=== PATIENT | male | born 1950 | race African-American/Black ===

== ENCOUNTER 2016-09-05 08:28 | Inpatient (IN) | payer OTHER ==
[2016-09-05 09:49] VITALS: BMI 24.9
--- NOTE | 2016-09-05 11:43 | HP ---
CIWA Score - CIWA Score Nausea/Vomitin-No Nausea/No Vomiting Muscle Tremors: 4-Moderate,w/Arms Extend Anxiety: 4-Mod. Anxious/Guarded Agitation: 4-Moderately Restless Paroxysmal Sweats: 3 Orientation: 0-Oriented Tacttile Disturbances: 0-None Auditory Disturbances: 0-None Visual Disturbances: 0-None Headache: 1-Very Mild CIWA-Ar Total Score: 16 Admission ROS BHS - HPI Chief Complaint: I am here to detox. Allergies/Adverse Reactions: Allergies Allergy/AdvReac Type Severity Reaction Status Date / Time No Known Allergies Allergy Verified 09/05/16 09:35 History of Present Illness: pt is a 65yr old male with a history of alcohol dependence seeking detox for treatment. pt is also on a mmtp program 80mg last dose verified taken yesterday. Exam Limitations: No Limitations - Ebola screening Have you traveled outside of the country in the last 21 days: No Have you had contact with anyone from an Ebola affected area: No Have you been sick,other than usual withdrawal symptoms: No Do you have a fever: No - Review of Systems Constitutional: Chills, Diaphoresis, Loss of Appetite, Changes in sleep, Unintentional Wgt. Loss EENT: reports: Tearing Respiratory: reports: Cough Cardiac: reports: Syncope GI: reports: Constipated, Diarrhea, Poor Appetite, Poor Fluid Intake : reports: No Symptoms Reported Musculoskeletal: reports: No Symptoms Reported Integumentary: reports: Flushing, Sweating Neuro: reports: Headache, Tingling, Tremors Endocrine: reports: Excessive Sweating, Flushing, Intolerance to Cold, Intolerance to Heat Hematology: reports: No Symptoms Reported Psychiatric: reports: Judgement Intact, Mood/Affect Appropiate, Orientated x3, Agitated, Anxious, Depressed Other Systems: Reviewed and Negative Patient History - Patient Medical History Hx Anemia: No Hx Asthma: No Hx Chronic Obstructive Pulmonary Disease (COPD): No Hx Cancer: No Hx Cardiac Disorders: No Hx Congestive Heart Failure: No Hx Hypertension: Yes (pt has been non compliant with meds.) Hx Pacemaker: No HX Cerebrovascular Accident: No Hx Seizures: No Hx Dementia: No Hx Diabetes: No Hx Gastrointestinal Disorders: No Hx Liver Disease: Yes (hep c ) Hx Genitourinary Disorders: No Hx Sexually Transmitted Disorders: No Hx Renal Disease (ESRD): No Hx Thyroid Disease: No Hx Human Immunodeficiency Virus (HIV): No (NEGATIVE HX last 10/23) Hx Hepatitis C: Yes (TREATED) Hx Depression: Yes Hx Suicide Attempt: No (denies) Hx Bipolar Disorder: No Hx Schizophrenia: No Other Medical History: anxiety - Patient Surgical History Past Surgical History: No Hx Neurologic Surgery: No Hx Cataract Extraction: No Hx Cardiac Surgery: No Hx Lung Surgery: No Hx Breast Surgery: No Hx Breast Biopsy: No Hx Abdominal Surgery: No Hx Appendectomy: No Hx Cholecystectomy: No Hx Genitourinary Surgery: No Hx Section: No Hx Orthopedic Surgery: No Anesthesia Reaction: No - PPD History Previous Implant?: Yes Documented Results: Negative w/proof Implanted On Prior [facility] Admission?: Yes Date: 09/27/15 Results: 0 mm PPD to be Administered?: No - Reproductive History Patient is a Female of Child Bearing Age (11 -55 yrs old): No - Smoking Cessation Smoking history: Current every day smoker Have you smoked in the past 12 months: Yes Aproximately how many cigarettes per day: 10 Hx Chewing Tobacco Use: No Initiated information on smoking cessation: Yes 'Breaking Loose' booklet given: 09/05/16 - Substance & Tx. History Hx Alcohol Use: Yes Substance Use Type: Alcohol Hx Substance Use Treatment: Yes - Substances Abused Alcohol Route: Oral Frequency: Daily Amount used: 2 pints vodka Age of first use: 19 Date of Last Use: 09/05/16 Family Disease History - Family Disease History Family History: Denies Admission Physical Exam BHS - Vital Signs Vital Signs: Vital Signs - 24 hr 09/05/16 09:47 Temperature 96.7 F L Pulse Rate 78 Respiratory 18 Rate Blood Pressure 156/92 - Physical General Appearance: Yes: Appropriately Dressed, Moderate Distress, Tremorous, Irritable, Sweating, Anxious HEENTM: Yes: Hearing grossly Normal, Normal Voice, Nasal Congestion, Rhinorrhea Respiratory: Yes: Lungs Clear, Normal Breath Sounds Neck: Yes: No masses,lesions,Nodules Breast: Yes: Within Normal Limits Cardiology: Yes: Regular Rhythm, Regular Rate, S1, S2 Abdominal: Yes: Normal Bowel Sounds, Non Tender, Soft Genitourinary: Yes: Within Normal Limits Back: Yes: Normal Inspection Musculoskeletal: Yes: full range of Motion, Gait Steady Extremities: Yes: Normal Capillary Refill, Normal Inspection, Non-Tender, Tremors 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: Yes: Fully Oriented, Alert, Normal Response Integumentary: Yes: Normal Color, Diaphoresis Lymphatic: Yes: Within Normal Limits - Diagnostic (1) Alcohol dependence with uncomplicated withdrawal Current Visit: Yes Status: Chronic (2) Hepatitis C Current Visit: Yes Status: Chronic Qualifiers: Viral hepatitis chronicity: chronic Hepatic coma status: without hepatic coma Qualified Code(s): B18.2 - Chronic viral hepatitis C (3) Methadone maintenance therapy patient Current Visit: Yes Status: Chronic Comment: dose verified with [facility] with 80mg last dose yesterday. (4) Nicotine dependence Current Visit: Yes Status: Chronic Qualifiers: Nicotine product type: cigarettes Substance use status: uncomplicated Qualified Code(s): F17.210 - Nicotine dependence, cigarettes, uncomplicated Cleared for Admission BHS - Detox or Rehab [facility] Level of Care: Medically Managed Detox Regimen/Protocol: Librium [facility] Breath Alcohol Content Breath Alcohol Content: 0.016 Urine Drug Screen - Results Drug Screen Negative: No Urine Drug Screen Results: OPI-Opiates, BZO-Benzodiazepines, MTD-Methadone
[2016-09-05] MEDS ORDERED: IBUPROFEN 400 MG TABLET (FP) PO PRN (11:48)
[2016-09-05] MEDS ORDERED: NICOTINE POLACRILEX 4 MG GUM BUC PRN (11:48)
[2016-09-05] MEDS ORDERED: MAGNESIUM HYDROX 2400MG/30ML ORAL SUSPENSION 30 ML CUP PO PRN (11:48)
[2016-09-05] MEDS ORDERED: chlordiazePOXIDE HCL 25 MG CAPSULE PO PRN (11:48)
[2016-09-05] MEDS ORDERED: MAGNESIUM CITRATE 300 ML BOTTLE PO PRN (11:48)
[2016-09-05] MEDS ORDERED: hydrOXYzine PAMOATE 50 MG CAPSULE (FP) PO PRN (11:48)
[2016-09-05] MEDS ORDERED: ACETAMINOPHEN 325 MG TABLET (FP) PO PRN (11:48)
[2016-09-05] MEDS ORDERED: chlordiazePOXIDE HCL 25 MG CAPSULE PO ONE (11:48)
[2016-09-05] MEDS ORDERED: guaiFENesin/D-METHORPHAN HB 10 ML UNIT-DOSE CUPS PO PRN (11:48)
[2016-09-05] MEDS ORDERED: MENTHOL/PHENOL 1 EACH UD MM PRN (11:48)
[2016-09-05] MEDS ORDERED: LOPERAMIDE HCL 2 MG CAPSULE PO PRN (11:48)
[2016-09-05] MEDS ORDERED: P-EPHED 60MG/TRIPROLIDI 2.5MG TABLET PO PRN (11:48)
[2016-09-05] MEDS ORDERED: MAG HYDROX/AL HYDROX/SIMETH 30 ML UNIT-DOSE CUP PO PRN (11:48)
[2016-09-05] MEDS ORDERED: METHADONE HCL 40 MG DISPERSABLE TABLET PO ONE (12:30)
[2016-09-05] MEDS: chlordiazePOXIDE HCL 25 MG CAPSULE PO SCH ×3 (13:34→22:29)
[2016-09-05] MEDS: HYDROCHLOROTHIAZIDE 25 MG TABLET (FP) PO SCH (13:34)
[2016-09-05] MEDS: ENALAPRIL MALEATE 10 MG TABLET (FP) PO SCH (13:34)
[2016-09-05 15:27] LABS: HIV 1 & 2 AB NEGATIVE; HIV 1 AGp24 NEGATIVE
--- NOTE | 2016-09-05 16:11 | EKG ---
Test Reason : Blood Pressure : / mmHG Vent. Rate : 069 BPM Atrial Rate : 069 BPM P-R Int : 174 ms QRS Dur : 080 ms QT Int : 356 ms P-R-T Axes : 074 064 007 degrees QTc Int : 381 ms NORMAL SINUS RHYTHM POSSIBLE LEFT ATRIAL ENLARGEMENT NONSPECIFIC T WAVE ABNORMALITY ABNORMAL ECG NO PREVIOUS ECGS AVAILABLE Confirmed by RAO ACKERMAN MD ([id number]) on 09/05/2016 4:10:45 PM Referred By: Guy Tarango Confirmed By:RAO ACKERMAN MD
[2016-09-05 21:01] LABS: URINE APPEARANCE CLEAR; URINE BILIRUBIN NEGATIVE (NEGATIVE); URINE BLOOD NEGATIVE (NEGATIVE); URINE COLOR DKYELLOW; URINE GLUCOSE (UA) NEGATIVE (NEGATIVE); URINE KETONE NEGATIVE (NEGATIVE); URINE LEUK ESTERASE NEGATIVE (NEGATIVE); URINE NITRITE NEGATIVE (NEGATIVE); URINE PROTEIN NEGATIVE (NEGATIVE); URINE UROBILINOGEN 4.0 E.U/dl E.U./dl (0.2-1.0)
[2016-09-05] MEDS: THIAMINE HCL 100 MG TABLET (FP) PO SCH (22:29)
[2016-09-05] MEDS: diphenhydrAMINE HCL 50 MG CAPSULE PO PRN (22:30)
[2016-09-06] MEDS: METHADONE HCL 40 MG DISPERSABLE TABLET PO SCH (05:58)
[2016-09-06] MEDS: chlordiazePOXIDE HCL 25 MG CAPSULE PO SCH ×4 (05:58→22:05)
[2016-09-06 10:26] LABS: MCHC 32.9 g/dl (32.0-35.9); MEAN CELL VOLUME 100.3 fl (80-96); MEAN PLT VOLUME 11.2 fl (7.5-11.1); PLATELET COUNT 66 K/MM3 (134-434); RDW 17.9 % (11.9-15.9); WHITE BLOOD COUNT 3.2 K/mm3 (4.0-10.0)
[2016-09-06] MEDS: HYDROCHLOROTHIAZIDE 25 MG TABLET (FP) PO SCH (10:29)
[2016-09-06] MEDS: ENALAPRIL MALEATE 10 MG TABLET (FP) PO SCH (10:29)
[2016-09-06] MEDS: ASPIRIN 81 MG CHEWABLE TABLETS PO SCH (10:29)
[2016-09-06] MEDS: NICOTINE 21 MG/24 HOURS TOPICAL PATCH TD SCH (10:30)
[2016-09-06] MEDS: PRENATAL VITAMINS W/ FOLIC ACID TABLET (FP) PO SCH (10:30)
--- NOTE | 2016-09-06 11:19 | CONSULT ---
[facility] Psychiatric Consult - Data Date of interview: 09/06/16 Admission source: [facility] Identifying data: New admission to [facility] for this 65 y/o AA male seeking detox treatment on for alcohol dependence.Patient is ,a father of three,domiciled,unemployed and supported on Public Assistance. Substance Abuse History: - Smoking Cessation. Smoking history: Current every day smoker. Have you smoked in the past 12 months: Yes. Aproximately how many cigarettes per day: 10. Hx Chewing Tobacco Use: No. Initiated information on smoking cessation: Yes. 'Breaking Loose' booklet given: 09/05/16. - Substance & Tx. History. Hx Alcohol Use: Yes. Substance Use Type: Alcohol. Hx Substance Use Treatment: Yes. - Substances Abused. Alcohol. Route: Oral. Frequency: Daily. Amount used: 2 pints vodka. Age of first use: 19. Date of Last Use: 09/05/16. Discussed with the patient in my interview.He confirmed this pattern of substance abuse. Medical History: HRemarkable for hypertension,hepatitis C and obesity. Psychiatric History: No reported history of psychiatric hospitalizations.Patient is on methadone maintenance (80 mg/day) at the [facility] MMTP program.Diagnosed with Anxiety Disorder.Mr Del reports that he is prescribed clonazepam in the community.No history of suicide attempts. Physical/Sexual Abuse/Trauma History: Patient denies. Additional Comment: Urine Drug Screen Results: OPI-Opiates, BZO-Benzodiazepines , MTD-Methadone.Noted. Mental Status Exam - Mental Status Exam Alert and Oriented to: Time, Place, Person Cognitive Function: Grossly Intact Patient Appearance: Unkempt, Disheveled Mood: Withdrawn, Anxious Affect: Mood Congruent Patient Behavior: Sedated (mildly), Fatigued, Cooperative Speech Pattern: Clear Voice Loudness: Normal Thought Process: Goal Oriented Thought Disorder: Not Present Hallucinations: Denies Suicidal Ideation: Denies Homicidal Ideation: Denies Insight/Judgement: Poor Sleep: Fair Appetite: Good Muscle strength/Tone: Normal Gait/Station: Normal Psychiatric Findings - Problem List ([place] 1, 2,3) (1) Alcohol dependence with uncomplicated withdrawal Current Visit: Yes Status: Acute (2) Opioid dependence on agonist therapy Current Visit: Yes Status: Acute (3) Nicotine dependence Current Visit: Yes Status: Acute Qualifiers: Nicotine product type: cigarettes Substance use status: uncomplicated Qualified Code(s): F17.210 - Nicotine dependence, cigarettes, uncomplicated (4) Hepatitis C Current Visit: Yes Status: Chronic Qualifiers: Viral hepatitis chronicity: chronic Hepatic coma status: without hepatic coma Qualified Code(s): B18.2 - Chronic viral hepatitis C - Initial Treatment Plan Initial Treatment Plan: Psychoeducation.Detoxification.Observation.
[2016-09-06 11:44] LABS: ALBUMIN 3.6 g/dl (3.4-5.0); ALK PHOS 36 U/L (45-117); ANION GAP 14 (8-16); BILIRUBIN,TOTAL 1.6 mg/dL (0.2-1.0); CALCIUM 9.1 mg/dL (8.5-10.1); CO2 30 mmol/L (21-32); CREATININE 0.7 mg/dL (0.7-1.3); GLUCOSE,RANDOM 129 mg/dL (74-106); SGOT/AST 66 U/L (15-37); SGPT/ALT 41 U/L (12-78); TOT PROT 6.8 g/dl (6.4-8.2)
--- NOTE | 2016-09-06 12:02 | PN ---
S CIWA - CIWA Score Nausea/Vomitin Muscle Tremors: 4-Moderate,w/Arms Extend Anxiety: 4-Mod. Anxious/Guarded Agitation: 4-Moderately Restless Paroxysmal Sweats: 3 Orientation: 0-Oriented Tacttile Disturbances: 1-Very Mild Itch/Numbness Auditory Disturbances: 0-None Visual Disturbances: 0-None Headache: 1-Very Mild CIWA-Ar Total Score: 20 BHS Progress Note (SOAP) Subjective: nausea, sweats, interrupted sleep, anxiety, tremors Objective: 09/06/16 12:00 Vital Signs - 8 hr 09/06/16 09/06/16 06:00 10:29 Temperature 98.6 F 97.8 F Pulse Rate 78 83 Respiratory 18 18 Rate Blood Pressure 154/94 141/91 Laboratory Tests 09/05/16 09/05/16 09/06/16 11:50 19:00 06:10 WBC 3.2 L RBC 4.15 Hgb 13.7 D Hct 41.6 MCV 100.3 H MCHC 32.9 RDW 17.9 H D Plt Count 66 L D MPV 11.2 H D Sodium Potassium Chloride Carbon Dioxide Anion Gap BUN Creatinine Creat Clearance w eGFR Random Glucose Calcium Total Bilirubin AST ALT Alkaline Phosphatase Total Protein Albumin Urine Color Dkyellow Urine Appearance Clear Urine pH 7.0 D Ur Specific [place] 1.014 Urine Protein Negative Urine Glucose (UA) Negative Urine Ketones Negative Urine Blood Negative Urine Nitrite Negative Urine Bilirubin Negative Urine Urobilinogen 4.0 e.u/dl Ur Leukocyte Esterase Negative HIV 1&2 Antibody Screen Negative HIV P24 Antigen Negative 09/06/16 06:10 WBC RBC Hgb Hct MCV MCHC RDW Plt Count MPV Sodium 138 Potassium 2.8 L* Chloride 94 L Carbon Dioxide 30 Anion Gap 14 BUN 8 D Creatinine 0.7 D Creat Clearance w eGFR > 60 Random Glucose 129 H D Calcium 9.1 Total Bilirubin 1.6 H D AST 66 H D ALT 41 Alkaline Phosphatase 36 L Total Protein 6.8 Albumin 3.6 Urine Color Urine Appearance Urine pH Ur Specific [place] Urine Protein Urine Glucose (UA) Urine Ketones Urine Blood Urine Nitrite Urine Bilirubin Urine Urobilinogen Ur Leukocyte Esterase HIV 1&2 Antibody Screen HIV P24 Antigen hypokalemiam elevated lfts , low paltelets Assessment: 09/06/16 12:01 withdrawal sx, hypokalemia and elevated lfts , low plts 2/2 alcohol use Plan: cont detox, fluids, supplement k, repeat labs
[2016-09-06] MEDS ORDERED: POTASSIUM CHLORIDE TABS 20 MEQ TABLET.ER (FP) PO ONE (12:15)
[2016-09-06] MEDS: POTASSIUM CHLORIDE TABS 20 MEQ TABLET.ER (FP) PO SCH (22:05)
[2016-09-06] MEDS: THIAMINE HCL 100 MG TABLET (FP) PO SCH (22:05)
[2016-09-06] MEDS: diphenhydrAMINE HCL 50 MG CAPSULE PO PRN (22:06)
[2016-09-07] MEDS: METHADONE HCL 40 MG DISPERSABLE TABLET PO SCH (05:59)
[2016-09-07] MEDS: chlordiazePOXIDE HCL 25 MG CAPSULE PO SCH (05:59)
[2016-09-07] MEDS: HYDROCHLOROTHIAZIDE 25 MG TABLET (FP) PO SCH (10:18)
[2016-09-07] MEDS: ASPIRIN 81 MG CHEWABLE TABLETS PO SCH (10:18)
[2016-09-07] MEDS: POTASSIUM CHLORIDE TABS 20 MEQ TABLET.ER (FP) PO SCH ×2 (10:19→22:10)
[2016-09-07] MEDS: ENALAPRIL MALEATE 10 MG TABLET (FP) PO SCH (10:19)
[2016-09-07] MEDS: PRENATAL VITAMINS W/ FOLIC ACID TABLET (FP) PO SCH (10:19)
[2016-09-07] MEDS: chlordiazePOXIDE 5 MG CAPSULE PO SCH ×3 (10:19→22:10)
[2016-09-07] MEDS: NICOTINE 21 MG/24 HOURS TOPICAL PATCH TD SCH (10:19)
--- NOTE | 2016-09-07 14:48 | PN ---
[facility] CIWA - CIWA Score Nausea/Vomitin-No Nausea/No Vomiting Muscle Tremors: 4-Moderate,w/Arms Extend Anxiety: 3 Agitation: 3 Paroxysmal Sweats: 3 Orientation: 0-Oriented Tacttile Disturbances: 1-Very Mild Itch/Numbness Auditory Disturbances: 0-None Visual Disturbances: 0-None Headache: 0-None Present CIWA-Ar Total Score: 14 BHS Progress Note (SOAP) Subjective: SWEATING,ANXIETY,TREMORS,RESTLESS,INTERRUPTED SLEEP Objective: 09/07/16 14:47 Vital Signs - 8 hr 09/07/16 09/07/16 10:00 14:00 Temperature 98.2 F 97.7 F Pulse Rate 86 95 H Respiratory 18 18 Rate Blood Pressure 149/90 116/73 Laboratory Last Values WBC 3.2 K/mm3 (4.0-10.0) L 09/06/16 06:10 RBC 4.15 M/mm3 (4.00-5.60) 09/06/16 06:10 Hgb 13.7 GM/dL (11.7-16.9) D 09/06/16 06:10 Hct 41.6 % (35.4-49) 09/06/16 06:10 MCV 100.3 fl (80-96) H 09/06/16 06:10 MCHC 32.9 g/dl (32.0-35.9) 09/06/16 06:10 RDW 17.9 % (11.9-15.9) H D 09/06/16 06:10 Plt Count 66 K/MM3 (134-434) L D 09/06/16 06:10 MPV 11.2 fl (7.5-11.1) H D 09/06/16 06:10 Sodium 138 mmol/L (136-145) 09/06/16 06:10 Potassium 2.8 mmol/L (3.5-5.1) L* 09/06/16 06:10 Chloride 94 mmol/L (98-107) L 09/06/16 06:10 Carbon Dioxide 30 mmol/L (21-32) 09/06/16 06:10 Anion Gap 14 (8-16) 09/06/16 06:10 BUN 8 mg/dL (7-18) D 09/06/16 06:10 Creatinine 0.7 mg/dL (0.7-1.3) D 09/06/16 06:10 Creat Clearance w eGFR > 60 (>60) 09/06/16 06:10 Random Glucose 129 mg/dL (74-106) H D 09/06/16 06:10 Calcium 9.1 mg/dL (8.5-10.1) 09/06/16 06:10 Total Bilirubin 1.6 mg/dL (0.2-1.0) H D 09/06/16 06:10 AST 66 U/L (15-37) H D 09/06/16 06:10 ALT 41 U/L (12-78) 09/06/16 06:10 Alkaline Phosphatase 36 U/L (45-117) L 09/06/16 06:10 Total Protein 6.8 g/dl (6.4-8.2) 09/06/16 06:10 Albumin 3.6 g/dl (3.4-5.0) 09/06/16 06:10 Urine Color Dkyellow 09/05/16 19:00 Urine Appearance Clear 09/05/16 19:00 Urine pH 7.0 (5.0-8.0) D 09/05/16 19:00 Ur Specific [place] 1.014 (1.001-1.035) 09/05/16 19:00 Urine Protein Negative (NEGATIVE) 09/05/16 19:00 Urine Glucose (UA) Negative (NEGATIVE) 09/05/16 19:00 Urine Ketones Negative (NEGATIVE) 09/05/16 19:00 Urine Blood Negative (NEGATIVE) 09/05/16 19:00 Urine Nitrite Negative (NEGATIVE) 09/05/16 19:00 Urine Bilirubin Negative (NEGATIVE) 09/05/16 19:00 Urine Urobilinogen 4.0 e.u/dl E.U./dl (0.2-1.0) 09/05/16 19:00 Ur Leukocyte Esterase Negative (NEGATIVE) 09/05/16 19:00 RPR Titer Nonreactive (NONREACTIVE) 09/06/16 06:10 HIV 1&2 Antibody Screen Negative 09/05/16 11:50 HIV P24 Antigen Negative 09/05/16 11:50 LABS NOTED Assessment: 09/07/16 14:48 WITHDRAWAL SX. Plan: CONTINUE DETOX
[2016-09-07] MEDS: THIAMINE HCL 100 MG TABLET (FP) PO SCH (22:09)
[2016-09-07] MEDS: diphenhydrAMINE HCL 50 MG CAPSULE PO PRN (22:11)
[2016-09-08] MEDS: chlordiazePOXIDE 5 MG CAPSULE PO SCH (04:49)
[2016-09-08] MEDS: METHADONE HCL 40 MG DISPERSABLE TABLET PO SCH (05:57)
[2016-09-08] MEDS: NICOTINE 21 MG/24 HOURS TOPICAL PATCH TD SCH (10:03)
[2016-09-08 10:04] LABS: CALCIUM 9.6 mg/dL (8.5-10.1); CREATININE 0.9 mg/dL (0.7-1.3)
[2016-09-08] MEDS: PRENATAL VITAMINS W/ FOLIC ACID TABLET (FP) PO SCH (10:04)
[2016-09-08] MEDS: POTASSIUM CHLORIDE TABS 20 MEQ TABLET.ER (FP) PO SCH (10:04)
[2016-09-08] MEDS: chlordiazePOXIDE HCL 10 MG CAPSULE PO SCH ×3 (10:04→22:32)
[2016-09-08] MEDS: HYDROCHLOROTHIAZIDE 25 MG TABLET (FP) PO SCH (10:04)
[2016-09-08] MEDS: ENALAPRIL MALEATE 10 MG TABLET (FP) PO SCH (10:04)
[2016-09-08] MEDS: ASPIRIN 81 MG CHEWABLE TABLETS PO SCH (10:04)
--- NOTE | 2016-09-08 11:05 | PN ---
BHS Progress Note (SOAP) Subjective: nausea, sweats, interrupted sleep, anxeity, tremors Objective: 09/08/16 11:04 Vital Signs - 8 hr 09/08/16 09/08/16 09/08/16 03:30 05:03 10:22 Temperature 98.1 F 98.1 F Pulse Rate 76 84 Respiratory 18 18 18 Rate Blood Pressure 132/88 151/98 Laboratory Tests 09/05/16 09/05/16 09/06/16 11:50 19:00 06:10 WBC 3.2 L RBC 4.15 Hgb 13.7 D Hct 41.6 MCV 100.3 H MCHC 32.9 RDW 17.9 H D Plt Count 66 L D MPV 11.2 H D Sodium Potassium Chloride Carbon Dioxide Anion Gap BUN Creatinine Creat Clearance w eGFR Random Glucose Calcium Total Bilirubin AST ALT Alkaline Phosphatase Total Protein Albumin Urine Color Dkyellow Urine Appearance Clear Urine pH 7.0 D Ur Specific [place] 1.014 Urine Protein Negative Urine Glucose (UA) Negative Urine Ketones Negative Urine Blood Negative Urine Nitrite Negative Urine Bilirubin Negative Urine Urobilinogen 4.0 e.u/dl Ur Leukocyte Esterase Negative RPR Titer HIV 1&2 Antibody Screen Negative HIV P24 Antigen Negative 09/06/16 09/06/16 09/08/16 06:10 06:10 06:30 WBC RBC Hgb Hct MCV MCHC RDW Plt Count MPV Sodium 138 141 Potassium 2.8 L* 4.5 D Chloride 94 L 97 L Carbon Dioxide 30 37 H D Anion Gap 14 7 L BUN 8 D 16 D Creatinine 0.7 D 0.9 D Creat Clearance w eGFR > 60 Random Glucose 129 H D 103 D Calcium 9.1 9.6 Total Bilirubin 1.6 H D AST 66 H D ALT 41 Alkaline Phosphatase 36 L Total Protein 6.8 Albumin 3.6 Urine Color Urine Appearance Urine pH Ur Specific [place] Urine Protein Urine Glucose (UA) Urine Ketones Urine Blood Urine Nitrite Urine Bilirubin Urine Urobilinogen Ur Leukocyte Esterase RPR Titer Nonreactive HIV 1&2 Antibody Screen HIV P24 Antigen Assessment: 09/08/16 11:04 withdrawal sx, k wnl after supplementation Plan: cont detox, d/c K supplements
[2016-09-08] MEDS: THIAMINE HCL 100 MG TABLET (FP) PO SCH (22:32)
[2016-09-08] MEDS: diphenhydrAMINE HCL 50 MG CAPSULE PO PRN (22:32)
[2016-09-09] MEDS: METHADONE HCL 40 MG DISPERSABLE TABLET PO SCH (05:48)
[2016-09-09] MEDS: chlordiazePOXIDE HCL 10 MG CAPSULE PO SCH (05:48)
[2016-09-09 06:25] VITALS: BP 145/94; PULSE 78; TEMP 96.1
--- NOTE | 2016-09-09 09:10 | DS ---
[facility] Detox Discharge Summary Admission Date: 09/05/16 Discharge Date: 09/09/16 - History Present History: Alcohol Dependence, Opioid Dependence, MMTP - Physical Exam Results Vital Signs: Vital Signs Temperature 96.1 F L 09/09/16 06:24 Pulse Rate 78 09/09/16 06:24 Respiratory Rate 18 09/09/16 06:24 Blood Pressure 145/94 09/09/16 06:24 O2 Sat by Pulse Oximetry (%) - Treatment Hospital Course: Detox Protocol Followed, Detoxed Safely, Responded well, Discharged Condition Good, Rehab Referral Accepted - Medication Discharge Medications: Ambulatory Orders Aspirin [ASA -] 81 mg PO DAILY 02/04/16 Enalapril Maleate [Vasotec -] 10 mg PO DAILY 09/05/16 Hydrochlorothiazide [Hctz -] 25 mg PO DAILY 09/05/16 - Diagnosis (1) Alcohol dependence with uncomplicated withdrawal Current Visit: Yes Status: Chronic (2) Hepatitis C Current Visit: Yes Status: Chronic Qualifiers: Viral hepatitis chronicity: chronic Hepatic coma status: without hepatic coma Qualified Code(s): B18.2 - Chronic viral hepatitis C (3) Methadone maintenance therapy patient Current Visit: Yes Status: Chronic (4) Nicotine dependence Current Visit: Yes Status: Chronic Qualifiers: Nicotine product type: cigarettes Substance use status: uncomplicated Qualified Code(s): F17.210 - Nicotine dependence, cigarettes, uncomplicated - AMA Did Patient Leave Against Medical Advice: No
[2016-09-09] MEDS: ENALAPRIL MALEATE 10 MG TABLET (FP) PO SCH (10:04)
[2016-09-09] MEDS: NICOTINE 21 MG/24 HOURS TOPICAL PATCH TD SCH (10:04)
[2016-09-09] MEDS: HYDROCHLOROTHIAZIDE 25 MG TABLET (FP) PO SCH (10:04)
[2016-09-09] MEDS: PRENATAL VITAMINS W/ FOLIC ACID TABLET (FP) PO SCH (10:04)
[2016-09-09] MEDS: ASPIRIN 81 MG CHEWABLE TABLETS PO SCH (10:04)
== END 2016-09-09 11:08 | disposition home or self-care (01) | DRG 773 ==
LOC: YASAS 08:28 → Y6N 10:45
PROVIDERS: ADMIT Internal Medicine; ATTEND Internal Medicine
PROC: HZ2ZZZZ Detoxification Services for Substance Abuse Treatment (ICD-10-PCS; principal; 2016-09-09)
DX: F11.20 Opioid dependence, uncomplicated (principal); F10.230 Alcohol dependence with withdrawal, uncomplicated; F17.210 Nicotine dependence, cigarettes, uncomplicated; B18.2 Chronic viral hepatitis C; I10 Essential (primary) hypertension; Z91.14 Patient's other noncompliance with medication regimen
CPT/HCPCS: 36415; 80048; 80053; 81003; 85027; 86593; 87389; 93005; 93010

== ENCOUNTER 2016-11-05 10:01 | Inpatient (IN) | payer OTHER ==
[2016-11-05 10:34] VITALS: BMI 24.9
--- NOTE | 2016-11-05 11:42 | HP ---
CIWA Score - CIWA Score Nausea/Vomitin Muscle Tremors: 3 Agitation: 2 Paroxysmal Sweats: 3 Orientation: 0-Oriented Tacttile Disturbances: 1-Very Mild Itch/Numbness Auditory Disturbances: 0-None Visual Disturbances: 0-None Headache: 0-None Present Admission ROS BHS - HPI Chief Complaint: 66 y/o m pt need help to stop using alcohol. Allergies/Adverse Reactions: Allergies Allergy/AdvReac Type Severity Reaction Status Date / Time No Known Allergies Allergy Verified 11/05/16 11:06 History of Present Illness: 66 y/o m pt with a h/o chronic alcohollism seeking detox. Exam Limitations: No Limitations - Ebola screening Have you traveled outside of the country in the last 21 days: No Have you had contact with anyone from an Ebola affected area: No Have you been sick,other than usual withdrawal symptoms: No Do you have a fever: No - Review of Systems Constitutional: Loss of Appetite, Malaise, Changes in sleep EENT: reports: Dental Problems Respiratory: reports: No Symptoms reported Cardiac: reports: No Symptoms Reported GI: reports: Nausea, Poor Appetite : reports: Frequency Musculoskeletal: reports: No Symptoms Reported Integumentary: reports: Dryness Neuro: reports: Tremors Endocrine: reports: No Symptoms Reported Hematology: reports: No Symptoms Reported Other Systems: Reviewed and Negative Patient History - Patient Medical History Hx Anemia: No Hx Asthma: No Hx Chronic Obstructive Pulmonary Disease (COPD): No Hx Cancer: No Hx Cardiac Disorders: No Hx Congestive Heart Failure: No Hx Hypertension: Yes Hx Pacemaker: No HX Cerebrovascular Accident: No Hx Seizures: No Hx Dementia: No Hx Diabetes: No Hx Gastrointestinal Disorders: No Hx Liver Disease: Yes (hep c ) Hx Genitourinary Disorders: No Hx Sexually Transmitted Disorders: No Hx Renal Disease (ESRD): No Hx Thyroid Disease: No Hx Human Immunodeficiency Virus (HIV): No (NEGATIVE HX last 10/23) Hx Hepatitis C: Yes (TREATED) Hx Depression: No Hx Suicide Attempt: No Hx Bipolar Disorder: No Hx Schizophrenia: No - Patient Surgical History Past Surgical History: No Hx Neurologic Surgery: No Hx Cataract Extraction: No Hx Cardiac Surgery: No Hx Lung Surgery: No Hx Breast Surgery: No Hx Breast Biopsy: No Hx Abdominal Surgery: No Hx Appendectomy: No Hx Cholecystectomy: No Hx Genitourinary Surgery: No Hx Section: No Hx Orthopedic Surgery: No Anesthesia Reaction: No - PPD History Previous Implant?: Yes Documented Results: Negative w/proof Implanted On Prior R Admission?: Yes Date: 09/27/15 Results: 0 mm PPD to be Administered?: Yes - Reproductive History Patient is a Female of Child Bearing Age (11 -55 yrs old): No - Smoking Cessation Smoking history: Current every day smoker Have you smoked in the past 12 months: Yes Aproximately how many cigarettes per day: 20 Cigars Per Day: 0 Hx Chewing Tobacco Use: No Initiated information on smoking cessation: Yes 'Breaking Loose' booklet given: 11/05/16 - Substance & Tx. History Hx Alcohol Use: Yes Hx Substance Use: Yes Substance Use Type: Alcohol Hx Substance Use Treatment: Yes ([facility] ) - Substances Abused Heroin Route: Inhalation Frequency: 1-3 times last 30 days Amount used: 2 bags Age of first use: 19 Date of Last Use: 11/04/16 Alcohol-vodka Route: Oral Frequency: Daily Amount used: fifth Age of first use: 65 Date of Last Use: 11/04/16 Family Disease History - Family Disease History Family Disease History: Other: Mother (htn ) Admission Physical Exam BHS - Vital Signs Vital Signs: Vital Signs - 24 hr 11/05/16 10:29 Temperature 97.4 F L Pulse Rate 105 H Respiratory 18 Rate Blood Pressure 144/90 66 y/o m pt aox3 in nad , mild tremor , ambulating and cooperative with exam . - Physical General Appearance: Yes: Disheveled, Thin, Tremorous, Sweating, Anxious HEENTM: Yes: EOMI, Normocephalic, Normal Voice, JACQUIE Respiratory: Yes: Chest Non-Tender, Lungs Clear, Normal Breath Sounds, No Respiratory Distress Neck: Yes: Supple, Trachea in good position Breast: Yes: Within Normal Limits Cardiology: Yes: Regular Rhythm, Regular Rate, S1, S2 Abdominal: Yes: Non Tender, Flat, Soft, Increased Bowel Sounds Genitourinary: Yes: Frequency Back: Yes: Within Normal Limits Musculoskeletal: Yes: Muscle Pain Extremities: Yes: Tremors 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: Yes: recording engineer II-XII NML intact, Fully Oriented, Alert, Motor Strength 5/5, Normal Response Integumentary: Yes: Moist Lymphatic: Yes: Within Normal Limits - Diagnostic (1) Opioid dependence on agonist therapy Current Visit: Yes Status: Chronic (2) Alcohol dependence with uncomplicated withdrawal Current Visit: Yes Status: Chronic (3) Hepatitis C Current Visit: Yes Status: Chronic Qualifiers: Viral hepatitis chronicity: chronic Hepatic coma status: without hepatic coma Qualified Code(s): B18.2 - Chronic viral hepatitis C (4) Nicotine dependence Current Visit: Yes Status: Chronic Qualifiers: Nicotine product type: cigarettes Substance use status: uncomplicated Qualified Code(s): F17.210 - Nicotine dependence, cigarettes, uncomplicated Cleared for Admission BHS - Detox or Rehab [facility] Level of Care: Medically Managed Detox Regimen/Protocol: Librium [facility] Breath Alcohol Content Breath Alcohol Content: 0 Urine Drug Screen - Results Drug Screen Negative: No Urine Drug Screen Results: OPI-Opiates, BZO-Benzodiazepines, MTD-Methadone
[2016-11-05] MEDS ORDERED: guaiFENesin/D-METHORPHAN HB 10 ML UNIT-DOSE CUPS PO PRN (11:52)
[2016-11-05] MEDS ORDERED: P-EPHED 60MG/TRIPROLIDI 2.5MG TABLET PO PRN (11:52)
[2016-11-05] MEDS ORDERED: ACETAMINOPHEN 325 MG TABLET (FP) PO PRN (11:52)
[2016-11-05] MEDS ORDERED: MENTHOL/PHENOL 1 EACH UD MM PRN (11:52)
[2016-11-05] MEDS ORDERED: MAGNESIUM HYDROX 2400MG/30ML ORAL SUSPENSION 30 ML CUP PO PRN (11:52)
[2016-11-05] MEDS ORDERED: MAGNESIUM CITRATE 300 ML BOTTLE PO PRN (11:52)
[2016-11-05] MEDS ORDERED: hydrOXYzine PAMOATE 25 MG CAPSULE (FP) PO PRN (11:52)
[2016-11-05] MEDS ORDERED: MAG HYDROX/AL HYDROX/SIMETH 30 ML UNIT-DOSE CUP PO PRN (11:52)
[2016-11-05] MEDS ORDERED: LOPERAMIDE HCL 2 MG CAPSULE PO PRN (11:52)
[2016-11-05] MEDS ORDERED: IBUPROFEN 400 MG TABLET (FP) PO PRN (11:52)
[2016-11-05] MEDS ORDERED: chlordiazePOXIDE HCL 25 MG CAPSULE PO PRN (11:52)
[2016-11-05] MEDS ORDERED: NICOTINE POLACRILEX 4 MG GUM BUC PRN (11:52)
[2016-11-05] MEDS: chlordiazePOXIDE HCL 25 MG CAPSULE PO SCH ×2 (17:11→22:06)
[2016-11-05 18:56] LABS: URINE APPEARANCE CLEAR; URINE BLOOD NEGATIVE (NEGATIVE); URINE COLOR AMBER; URINE GLUCOSE (UA) NEGATIVE (NEGATIVE); URINE KETONE NEGATIVE (NEGATIVE); URINE LEUK ESTERASE NEGATIVE (NEGATIVE); URINE NITRITE NEGATIVE (NEGATIVE); URINE UROBILINOGEN 4.0 E.U/dl E.U./dl (0.2-1.0)
[2016-11-05 19:20] LABS: URINE PROTEIN 1+ (NEGATIVE)
[2016-11-05 19:23] LABS: URINE MUCUS MODERATE; URINE RBC <1 /hpf (0-3); URINE WBC 1 /hpf (3-5)
[2016-11-05] MEDS: THIAMINE HCL 100 MG TABLET (FP) PO SCH (22:05)
[2016-11-05] MEDS: diphenhydrAMINE HCL 50 MG CAPSULE PO PRN (22:06)
[2016-11-06] MEDS: chlordiazePOXIDE HCL 25 MG CAPSULE PO SCH ×4 (05:21→22:02)
[2016-11-06] MEDS: ASPIRIN 81 MG CHEWABLE TABLETS PO SCH (10:02)
[2016-11-06] MEDS: PRENATAL VITAMINS W/ FOLIC ACID TABLET (FP) PO SCH (10:03)
[2016-11-06] MEDS: HYDROCHLOROTHIAZIDE 25 MG TABLET (FP) PO SCH (10:03)
[2016-11-06] MEDS: NICOTINE 21 MG/24 HOURS TOPICAL PATCH TD SCH (10:03)
[2016-11-06] MEDS: ENALAPRIL MALEATE 10 MG TABLET (FP) PO SCH (10:03)
[2016-11-06 10:16] LABS: MCH 31.8 pg (25.7-33.7); MCHC 32.9 g/dl (32.0-35.9); MEAN CELL VOLUME 96.5 fl (80-96); MEAN PLT VOLUME 11.6 fl (7.5-11.1); PLATELET COUNT 108 K/MM3 (134-434); RDW 15.5 % (11.9-15.9); WHITE BLOOD COUNT 4.3 K/mm3 (4.0-10.0)
[2016-11-06 10:33] LABS: ALBUMIN 4.3 g/dl (3.4-5.0); ANION GAP 10 (8-16); CALCIUM 9.6 mg/dL (8.5-10.1); CO2 36 mmol/L (21-32); GLUCOSE,RANDOM 110 mg/dL (74-106); SGOT/AST 76 U/L (15-37)
[2016-11-06 10:36] LABS: ALK PHOS 40 U/L (45-117); BILIRUBIN,TOTAL 1.2 mg/dL (0.2-1.0); CREATININE 0.9 mg/dL (0.7-1.3); SGPT/ALT 63 U/L (12-78); TOT PROT 8.5 g/dl (6.4-8.2)
--- NOTE | 2016-11-06 11:04 | PN ---
S CIWA - CIWA Score Nausea/Vomitin-No Nausea/No Vomiting Muscle Tremors: 4-Moderate,w/Arms Extend Anxiety: 3 Agitation: 3 Paroxysmal Sweats: 3 Orientation: 0-Oriented Tacttile Disturbances: 0-None Auditory Disturbances: 0-None Visual Disturbances: 0-None Headache: 1-Very Mild CIWA-Ar Total Score: 14 S Progress Note (SOAP) Subjective: sweats interrupted sleep headache irritable agitation I no longer want to be on the methadone program i stopped going a month ago. Objective: 11/06/16 11:03 Vital Signs Temperature 99.0 F 11/06/16 10:31 Pulse Rate 78 11/06/16 10:31 Respiratory Rate 18 11/06/16 10:31 Blood Pressure 133/82 11/06/16 10:31 O2 Sat by Pulse Oximetry (%) Laboratory Tests 11/05/16 11/06/16 11/06/16 12:55 06:00 06:00 WBC 4.3 D RBC 5.09 D Hgb 16.2 D Hct 49.1 H D MCV 96.5 H MCHC 32.9 RDW 15.5 D Plt Count 108 L D MPV 11.6 H Sodium 138 Potassium 3.7 Chloride 92 L Carbon Dioxide 36 H Anion Gap 10 BUN 11 D Creatinine 0.9 Creat Clearance w eGFR > 60 Random Glucose 110 H Calcium 9.6 Total Bilirubin 1.2 H D AST 76 H ALT 63 D Alkaline Phosphatase 40 L Total Protein 8.5 H D Albumin 4.3 Urine Color [place] Urine Appearance Clear Urine pH 5.0 D Ur Specific [place] 1.027 Urine Protein 1+ H Urine Glucose (UA) Negative Urine Ketones Negative Urine Blood Negative Urine Nitrite Negative Urine Bilirubin 2.0 Urine Urobilinogen 4.0 e.u/dl Ur Leukocyte Esterase Negative Urine RBC <1 Urine WBC 1 Urine Mucus Moderate awake/alert lying in bed no acute distress Assessment: 11/06/16 11:03 withdrawal sx Plan: continue detox increase fluids
--- NOTE | 2016-11-06 12:37 | EKG ---
Test Reason : Blood Pressure : / mmHG Vent. Rate : 097 BPM Atrial Rate : 097 BPM P-R Int : 160 ms QRS Dur : 086 ms QT Int : 368 ms P-R-T Axes : 075 068 035 degrees QTc Int : 467 ms NORMAL SINUS RHYTHM NORMAL ECG WHEN COMPARED WITH ECG OF 05-SEP-2016 13:21, NONSPECIFIC T WAVE ABNORMALITY NO LONGER EVIDENT IN LATERAL LEADS QT HAS LENGTHENED Confirmed by DAVID BANERJEE, MARISELA ([id number]) on 11/06/2016 12:36:50 PM Referred By: Jamie Gaffney Confirmed By:MARISELA HERNANDEZ MD
[2016-11-06] MEDS: diphenhydrAMINE HCL 50 MG CAPSULE PO PRN (22:02)
[2016-11-06] MEDS: THIAMINE HCL 100 MG TABLET (FP) PO SCH (22:02)
[2016-11-07] MEDS: chlordiazePOXIDE HCL 25 MG CAPSULE PO SCH ×2 (05:29→11:20)
[2016-11-07] MEDS ORDERED: ASPIRIN COATED 81 MG TABLET.EC ONE (09:53)
--- NOTE | 2016-11-07 09:53 | PN ---
[facility] CIWA - CIWA Score Nausea/Vomitin-No Nausea/No Vomiting Muscle Tremors: 3 Anxiety: 3 Agitation: 3 Paroxysmal Sweats: 2 Orientation: 0-Oriented Tacttile Disturbances: 0-None Auditory Disturbances: 0-None Visual Disturbances: 0-None Headache: 0-None Present CIWA-Ar Total Score: 11 S Progress Note (SOAP) Subjective: sweats irritable interrupted sleep agitation Objective: 11/07/16 09:43 Vital Signs Temperature 97.9 F 11/07/16 06:00 Pulse Rate 68 11/07/16 06:00 Respiratory Rate 18 11/07/16 06:00 Blood Pressure 100/62 11/07/16 06:00 O2 Sat by Pulse Oximetry (%) Laboratory Tests 11/05/16 11/06/16 11/06/16 12:55 06:00 06:00 WBC 4.3 D RBC 5.09 D Hgb 16.2 D Hct 49.1 H D MCV 96.5 H MCHC 32.9 RDW 15.5 D Plt Count 108 L D MPV 11.6 H Sodium 138 Potassium 3.7 Chloride 92 L Carbon Dioxide 36 H Anion Gap 10 BUN 11 D Creatinine 0.9 Creat Clearance w eGFR > 60 Random Glucose 110 H Calcium 9.6 Total Bilirubin 1.2 H D AST 76 H ALT 63 D Alkaline Phosphatase 40 L Total Protein 8.5 H D Albumin 4.3 Urine Color Janeth Urine Appearance Clear Urine pH 5.0 D Ur Specific [place] 1.027 Urine Protein 1+ H Urine Glucose (UA) Negative Urine Ketones Negative Urine Blood Negative Urine Nitrite Negative Urine Bilirubin 2.0 Urine Urobilinogen 4.0 e.u/dl Ur Leukocyte Esterase Negative Urine RBC <1 Urine WBC 1 Urine Mucus Moderate RPR Titer 11/06/16 06:00 WBC RBC Hgb Hct MCV MCHC RDW Plt Count MPV Sodium Potassium Chloride Carbon Dioxide Anion Gap BUN Creatinine Creat Clearance w eGFR Random Glucose Calcium Total Bilirubin AST ALT Alkaline Phosphatase Total Protein Albumin Urine Color Urine Appearance Urine pH Ur Specific [place] Urine Protein Urine Glucose (UA) Urine Ketones Urine Blood Urine Nitrite Urine Bilirubin Urine Urobilinogen Ur Leukocyte Esterase Urine RBC Urine WBC Urine Mucus RPR Titer Nonreactive awake/alert ambulating no acute distress Assessment: 11/07/16 09:44 withdrawal sx Plan: continue detox increase fluids
[2016-11-07] MEDS: ENALAPRIL MALEATE 10 MG TABLET (FP) PO SCH (10:50)
[2016-11-07] MEDS: ASPIRIN 81 MG CHEWABLE TABLETS PO SCH (11:20)
[2016-11-07] MEDS: HYDROCHLOROTHIAZIDE 25 MG TABLET (FP) PO SCH (11:20)
[2016-11-07] MEDS: PRENATAL VITAMINS W/ FOLIC ACID TABLET (FP) PO SCH (11:21)
[2016-11-07] MEDS: NICOTINE 21 MG/24 HOURS TOPICAL PATCH TD SCH (11:21)
[2016-11-07] MEDS ORDERED: chlordiazePOXIDE 5 MG CAPSULE PO SCH (17:00)
[2016-11-07 17:53] VITALS: BP 130/77; PULSE 64; TEMP 98.4
--- NOTE | 2016-11-07 20:43 | DS ---
[facility] Detox Discharge Summary Admission Date: 11/05/16 Discharge Date: 11/07/16 - History Present History: Alcohol Dependence, Opioid Dependence Additional Comments: patient insists to leave the unit, refuses to wait face to face with the provider consider follow up as per counselor arranged has enough medication, will follow up with primary care provider around refuses e prescription Pertinent Past History: hepatitis c nicotine dependence hypertension - Physical Exam Results Vital Signs: Vital Signs Temperature 98.4 F 11/07/16 17:51 Pulse Rate 64 11/07/16 17:51 Respiratory Rate 18 11/07/16 17:51 Blood Pressure 130/77 11/07/16 17:51 O2 Sat by Pulse Oximetry (%) Pertinent Admission Physical Exam Findings: withdrawal sx Laboratory Last Values WBC 4.3 K/mm3 (4.0-10.0) D 11/06/16 06:00 RBC 5.09 M/mm3 (4.00-5.60) D 11/06/16 06:00 Hgb 16.2 GM/dL (11.7-16.9) D 11/06/16 06:00 Hct 49.1 % (35.4-49) H D 11/06/16 06:00 MCV 96.5 fl (80-96) H 11/06/16 06:00 MCHC 32.9 g/dl (32.0-35.9) 11/06/16 06:00 RDW 15.5 % (11.9-15.9) D 11/06/16 06:00 Plt Count 108 K/MM3 (134-434) L D 11/06/16 06:00 MPV 11.6 fl (7.5-11.1) H 11/06/16 06:00 Sodium 138 mmol/L (136-145) 11/06/16 06:00 Potassium 3.7 mmol/L (3.5-5.1) 11/06/16 06:00 Chloride 92 mmol/L (98-107) L 11/06/16 06:00 Carbon Dioxide 36 mmol/L (21-32) H 11/06/16 06:00 Anion Gap 10 (8-16) 11/06/16 06:00 BUN 11 mg/dL (7-18) D 11/06/16 06:00 Creatinine 0.9 mg/dL (0.7-1.3) 11/06/16 06:00 Creat Clearance w eGFR > 60 (>60) 11/06/16 06:00 Random Glucose 110 mg/dL (74-106) H 11/06/16 06:00 Calcium 9.6 mg/dL (8.5-10.1) 11/06/16 06:00 Total Bilirubin 1.2 mg/dL (0.2-1.0) H D 11/06/16 06:00 AST 76 U/L (15-37) H 11/06/16 06:00 ALT 63 U/L (12-78) D 11/06/16 06:00 Alkaline Phosphatase 40 U/L (45-117) L 11/06/16 06:00 Total Protein 8.5 g/dl (6.4-8.2) H D 11/06/16 06:00 Albumin 4.3 g/dl (3.4-5.0) 11/06/16 06:00 Urine Color Janeth 11/05/16 12:55 Urine Appearance Clear 11/05/16 12:55 Urine pH 5.0 (5.0-8.0) D 11/05/16 12:55 Ur Specific [place] 1.027 (1.001-1.035) 11/05/16 12:55 Urine Protein 1+ (NEGATIVE) H 11/05/16 12:55 Urine Glucose (UA) Negative (NEGATIVE) 11/05/16 12:55 Urine Ketones Negative (NEGATIVE) 11/05/16 12:55 Urine Blood Negative (NEGATIVE) 11/05/16 12:55 Urine Nitrite Negative (NEGATIVE) 11/05/16 12:55 Urine Bilirubin 2.0 (NEGATIVE) 11/05/16 12:55 Urine Urobilinogen 4.0 e.u/dl E.U./dl (0.2-1.0) 11/05/16 12:55 Ur Leukocyte Esterase Negative (NEGATIVE) 11/05/16 12:55 Urine RBC <1 /hpf (0-3) 11/05/16 12:55 Urine WBC 1 /hpf (3-5) 11/05/16 12:55 Urine Mucus Moderate 11/05/16 12:55 RPR Titer Nonreactive (NONREACTIVE) 11/06/16 06:00 lab noted - Treatment Hospital Course: Detox Protocol Followed, Responded well - Medication Discharge Medications: Ambulatory Orders Aspirin [ASA -] 81 mg PO DAILY 02/04/16 Enalapril Maleate [Vasotec -] 10 mg PO DAILY 09/05/16 Hydrochlorothiazide [Hctz -] 25 mg PO DAILY 09/05/16 - Diagnosis (1) Alcohol dependence with uncomplicated withdrawal Status: Acute (2) Hepatitis C Status: Chronic Qualifiers: Viral hepatitis chronicity: chronic Hepatic coma status: without hepatic coma Qualified Code(s): B18.2 - Chronic viral hepatitis C (3) Nicotine dependence Status: Acute Qualifiers: Nicotine product type: cigarettes Substance use status: in withdrawal Qualified Code(s): F17.213 - Nicotine dependence, cigarettes, with withdrawal (4) Opioid dependence with withdrawal Status: Acute (5) Hypertension Status: Acute Qualifiers: Hypertension type: essential hypertension Qualified Code(s): I10 - Essential (primary) hypertension - AMA Did Patient Leave Against Medical Advice: Yes
[2016-11-08] MEDS ORDERED: chlordiazePOXIDE HCL 10 MG CAPSULE PO SCH (17:00)
== END 2016-11-07 20:15 | disposition left against medical advice (07) | DRG 770 ==
LOC: YASAS 10:01 → Y6N 11:50
PROVIDERS: ADMIT Internal Medicine Addiction Medicine; ATTEND Internal Medicine Addiction Medicine
PROC: HZ2ZZZZ Detoxification Services for Substance Abuse Treatment (ICD-10-PCS; principal; 2016-11-07)
DX: F11.23 Opioid dependence with withdrawal (principal); F10.230 Alcohol dependence with withdrawal, uncomplicated; F17.210 Nicotine dependence, cigarettes, uncomplicated; B18.2 Chronic viral hepatitis C; I10 Essential (primary) hypertension
CPT/HCPCS: 36415; 80053; 81003; 81015; 85027; 86593; 93005; 93010

== ENCOUNTER 2017-06-17 11:31 | Inpatient (IN) | payer OTHER ==
[2017-06-17 15:12] VITALS: BMI 25.8
--- NOTE | 2017-06-17 16:21 | HP ---
COWS - Scale Resting Pulse: 2= [place] 101-120 Sweatin= Chills/Flushing Restless Observation: 1= Difficult to Sit Still Pupil Size: 1= Pupils >than Normal Bone or Joint Aches: 1= Mild Discomfort Runny Nose/ Eye Tearin= Nasal Congestion GI Upset > 30mins: 2= Nausea/Diarrhea Tremor Observation: 2= Slight Tremor Visible Yawning Observation: 1= 1-2x During Session Anxiety or Irritability: 2=Irritable/Anxious Goose Flesh Skin: 3=Piloerection COWS Score: 17 CIWA Score - CIWA Score Nausea/Vomitin Muscle Tremors: 4-Moderate,w/Arms Extend Anxiety: 4-Mod. Anxious/Guarded Agitation: 3 Paroxysmal Sweats: 1-Minimal Palms Moist Orientation: 0-Oriented Tacttile Disturbances: 0-None Auditory Disturbances: 0-None Visual Disturbances: 0-None Headache: 3-Moderate CIWA-Ar Total Score: 20 Admission ROS S - HPI Chief Complaint: alcohol and heroin withdrawal sx Allergies/Adverse Reactions: Allergies Allergy/AdvReac Type Severity Reaction Status Date / Time No Known Allergies Allergy Verified 06/17/17 15:15 History of Present Illness: 66 yo m wit h/o chronic alcoholism and opioid use disorder c/o withdrawal sx as he has not used since . requesting inpatient detoxification. PMHX HTN on medicaton, no h/o seizures, no DTS. no suicidal ideation at this time, last in treatment at [facility] - Ebola screening Have you traveled outside of the country in the last 21 days: No Have you had contact with anyone from an Ebola affected area: No Have you been sick,other than usual withdrawal symptoms: No Do you have a fever: No - Review of Systems Constitutional: Chills, Diaphoresis, Loss of Appetite, Malaise, Night Sweats, Changes in sleep, Unintentional Wgt. Loss EENT: reports: Nose Congestion Respiratory: reports: SOB with Exertion, Wheezing, Productive cough (smokers from cigarrettes) Cardiac: reports: No Symptoms Reported GI: reports: Nausea, Poor Appetite, Poor Fluid Intake, Vomiting, Indigestion, Abdominal cramping : reports: No Symptoms Reported Integumentary: reports: Flushing, Sweating Neuro: reports: Headache, Tremors, Weakness Endocrine: reports: No Symptoms Reported Hematology: reports: No Symptoms Reported Psychiatric: reports: Judgement Intact, Mood/Affect Appropiate, Orientated x3, Anxious, Depressed Other Systems: Reviewed and Negative Patient History - Patient Medical History Hx Anemia: No Hx Asthma: No Hx Chronic Obstructive Pulmonary Disease (COPD): No Hx Cancer: No Hx Cardiac Disorders: No Hx Congestive Heart Failure: No Hx Hypertension: Yes Hx Hypercholesterolemia: No Hx Pacemaker: No HX Cerebrovascular Accident: No Hx Seizures: No Hx Dementia: No Hx Diabetes: No Hx Gastrointestinal Disorders: No Hx Liver Disease: Yes (hep c ) Hx Genitourinary Disorders: No Hx Sexually Transmitted Disorders: No Hx Renal Disease (ESRD): No Hx Thyroid Disease: No Hx Human Immunodeficiency Virus (HIV): No (NEGATIVE HX last 10/23) Hx Hepatitis C: Yes (TREATED, cleared virus) Hx Depression: Yes Hx Suicide Attempt: No Hx Bipolar Disorder: No Hx Schizophrenia: No - Patient Surgical History Past Surgical History: No Hx Neurologic Surgery: No Hx Cataract Extraction: No Hx Cardiac Surgery: No Hx Lung Surgery: No Hx Breast Surgery: No Hx Breast Biopsy: No Hx Abdominal Surgery: No Hx Appendectomy: No Hx Cholecystectomy: No Hx Genitourinary Surgery: No Hx Section: No Hx Orthopedic Surgery: No Hx Hysterectomy: No Anesthesia Reaction: No - PPD History Previous Implant?: Yes Documented Results: Negative w/proof Implanted On Prior [facility] Admission?: Yes Date: 11/07/16 Results: 0 mm PPD to be Administered?: No - Reproductive History Patient is a Female of Child Bearing Age (11 -55 yrs old): No Patient : No - Smoking Cessation Smoking history: Current every day smoker Have you smoked in the past 12 months: Yes Aproximately how many cigarettes per day: 12 Cigars Per Day: 0 Hx Chewing Tobacco Use: No Initiated information on smoking cessation: Yes 'Breaking Loose' booklet given: 06/17/17 - Substance & Tx. History Hx Alcohol Use: Yes Hx Substance Use: Yes Substance Use Type: Alcohol, Heroin, Opiates Hx Substance Use Treatment: Yes ([facility] 04/2017) - Substances Abused Alcohol Route: Oral Frequency: Daily Amount used: VODKA(2 PINTS) Age of first use: 42 Date of Last Use: 06/17/17 Heroin Route: Inhalation Frequency: Daily Amount used: 12-13 BAGS Age of first use: 19 Date of Last Use: 06/16/17 Family Disease History - Family Disease History Family Disease History: Other: Father (NO CONTACT), Mother (htn ) Admission Physical Exam [facility] - Vital Signs Vital Signs: Vital Signs - 24 hr 06/17/17 15:09 Temperature 98.2 F Pulse Rate 102 H Respiratory 20 Rate Blood Pressure 132/87 - Physical General Appearance: Yes: Nourished, Appropriately Dressed, Disheveled, Mild Distress, Tremorous, Irritable, Sweating, Anxious HEENTM: Yes: EOMI, Hearing grossly Normal, Normal ENT Inspection, Normocephalic , Normal Voice, JACQUIE, Pharynx Normal, Nasal Congestion, Rhinorrhea Respiratory: Yes: Within Normal Limits, Chest Non-Tender, Lungs Clear, Normal Breath Sounds, No Respiratory Distress, No Accessory Muscle Use Neck: Yes: Within Normal Limits, No masses,lesions,Nodules, Supple, Trachea in good position Breast: Yes: Breast Exam Deferred Cardiology: Yes: Within Normal Limits, Regular Rhythm, Regular Rate, S1, S2 Abdominal: Yes: Normal Bowel Sounds, Non Tender, Flat, Increased Bowel Sounds Genitourinary: Yes: Within Normal Limits Back: Yes: Normal Inspection, Decreased Range of Motion (from pain), Muscle Spasm Musculoskeletal: Yes: full range of Motion, Gait Steady, Pelvis Stable, Back pain, Muscle Pain Extremities: Yes: Normal Capillary Refill, Normal Range of Motion, Non-Tender, Tremors 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: 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: 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, Fully Oriented, Alert, Motor Strength 5/5, Normal Response, Depressed Affect Integumentary: Yes: Normal Color, Warm, Diaphoresis, Moist, Track Olea (no infection, fresh, no abscess) Lymphatic: Yes: Within Normal Limits - Addiitonal Findings: withdrawal sx - Diagnostic (1) Alcohol dependence with uncomplicated withdrawal Current Visit: No Status: Acute (2) Insomnia Current Visit: No Status: Acute (3) Opioid dependence with withdrawal Current Visit: No Status: Acute (4) Substance induced mood disorder Current Visit: No Status: Acute (5) Weight loss Current Visit: No Status: Acute (6) Hepatitis C Current Visit: No Status: Chronic Qualifiers: Viral hepatitis chronicity: chronic Hepatic coma status: without hepatic coma Qualified Code(s): B18.2 - Chronic viral hepatitis C (7) Hypertension Current Visit: No Status: Chronic Qualifiers: Hypertension type: essential hypertension Qualified Code(s): I10 - Essential (primary) hypertension (8) Nicotine dependence Current Visit: No Status: Chronic Qualifiers: Nicotine product type: cigarettes Substance use status: in withdrawal Qualified Code(s): F17.213 - Nicotine dependence, cigarettes, with withdrawal Cleared for Admission [facility] - Detox or Rehab [facility] Level of Care: Medically Managed Detox Regimen/Protocol: Methadone/Librium S Breath Alcohol Content Breath Alcohol Content: 0.015 Urine Drug Screen - Results Drug Screen Negative: No Urine Drug Screen Results: OPI-Opiates, BZO-Benzodiazepines
[2017-06-17] MEDS ORDERED: ACETAMINOPHEN 325 MG TABLET (FP) PO PRN (16:23)
[2017-06-17] MEDS ORDERED: chlordiazePOXIDE HCL 25 MG CAPSULE PO PRN (16:23)
[2017-06-17] MEDS ORDERED: P-EPHED 60MG/TRIPROLIDI 2.5MG TABLET PO PRN (16:23)
[2017-06-17] MEDS ORDERED: MAGNESIUM HYDROX 2400MG/30ML ORAL SUSPENSION 30 ML CUP PO PRN (16:23)
[2017-06-17] MEDS ORDERED: guaiFENesin/D-METHORPHAN HB 10 ML UNIT-DOSE CUPS PO PRN (16:23)
[2017-06-17] MEDS ORDERED: MENTHOL/PHENOL 1 EACH UD MM PRN (16:23)
[2017-06-17] MEDS ORDERED: NICOTINE POLACRILEX 2 MG GUM BC PRN (16:23)
[2017-06-17] MEDS ORDERED: LOPERAMIDE HCL 2 MG CAPSULE PO PRN (16:23)
[2017-06-17] MEDS ORDERED: hydrOXYzine PAMOATE 50 MG CAPSULE (FP) PO PRN (16:23)
[2017-06-17] MEDS ORDERED: IBUPROFEN 400 MG TABLET (FP) PO PRN (16:23)
[2017-06-17] MEDS ORDERED: MAGNESIUM CITRATE 300 ML BOTTLE PO PRN (16:23)
[2017-06-17] MEDS ORDERED: MAG HYDROX/AL HYDROX/SIMETH 30 ML UNIT-DOSE CUP PO PRN (16:23)
[2017-06-17] MEDS ORDERED: METHADONE HCL 10 MG TABLET (FOR DETOX USE ONLY) PO ONE ×2 (19:00→23:00)
[2017-06-17] MEDS ORDERED: chlordiazePOXIDE HCL 25 MG CAPSULE PO ONE (19:00)
[2017-06-17] MEDS: NICOTINE 14 MG/24 HOURS TOPICAL PATCH TD SCH (19:43)
[2017-06-17] MEDS: chlordiazePOXIDE HCL 25 MG CAPSULE PO SCH (22:26)
[2017-06-17] MEDS: THIAMINE HCL 100 MG TABLET (FP) PO SCH (22:26)
[2017-06-17] MEDS: diphenhydrAMINE HCL 25 MG CAPSULE (FP) PO PRN (22:26)
[2017-06-17 22:38] LABS: URINE APPEARANCE CLEAR; URINE BILIRUBIN NEGATIVE (NEGATIVE); URINE BLOOD NEGATIVE (NEGATIVE); URINE COLOR DKYELLOW; URINE GLUCOSE (UA) NEGATIVE (NEGATIVE); URINE KETONE NEGATIVE (NEGATIVE); URINE NITRITE NEGATIVE (NEGATIVE)
[2017-06-17 22:55] LABS: URINE PROTEIN 1+ (NEGATIVE)
[2017-06-17 23:01] LABS: URINE MUCUS RARE
[2017-06-18] MEDS: chlordiazePOXIDE HCL 25 MG CAPSULE PO SCH ×4 (05:33→22:17)
--- NOTE | 2017-06-18 08:38 | CONSULT ---
[facility] Psychiatric Consult - Data Date of interview: 06/18/17 Admission source: [facility] Identifying data: This is 66 years old male with no psychiatric hospitalization history intoxicated with: Alcohol, Opioidsd and Nicotine Substance Abuse History: - Smoking Cessation. Smoking history: Current every day smoker. Have you smoked in the past 12 months: Yes. Aproximately how many cigarettes per day: 12. Cigars Per Day: 0. Hx Chewing Tobacco Use: No. Initiated information on smoking cessation: Yes. 'Breaking Loose' booklet given : 06/17/17. - Substance & Tx. History. Hx Alcohol Use: Yes. Hx Substance Use : Yes. Substance Use Type: Alcohol, Heroin, Opiates. Hx Substance Use Treatment: Yes ([facility] 04/2017). - Substances Abused. Alcohol. Route: Oral. Frequency: Daily. Amount used: VODKA(2 PINTS). Age of first use: 42. Date of Last Use: 06/17/17. Heroin. Route: Inhalation. Frequency: Daily. Amount used: 12-13 BAGS. Age of first use: 19. Date of Last Use: 06/16/17 Medical History: Weight loss history, HepC+, HTN Psychiatric History: Patient reports no past psychiatric history Physical/Sexual Abuse/Trauma History: Denies Additional Comment: Observation. Detox Unit Care Protocol Mental Status Exam - Mental Status Exam Alert and Oriented to: Person Cognitive Function: Fair Patient Appearance: Unkempt Mood: Sad Affect: Flat Patient Behavior: Sedated Speech Pattern: Delayed Voice Loudness: Mildly Soft/Quiet Thought Process: Circumstantial Thought Disorder: Being Controlled Hallucinations: Denies Suicidal Ideation: Denies Homicidal Ideation: Denies Insight/Judgement: Fair Sleep: Difficulty falling asleep Appetite: Weight loss Muscle strength/Tone: Mild Hypotonicity Gait/Station: Shuffling Additional Comments: Observation. Detox Unit Care Protocol Psychiatric Findings - Problem List ([place] 1, 2,3) (1) Alcohol dependence with uncomplicated withdrawal Current Visit: No Status: Acute (2) Opioid dependence with withdrawal Current Visit: No Status: Acute (3) Substance induced mood disorder Current Visit: No Status: Suspected (4) Weight loss Current Visit: No Status: Acute (5) Nicotine dependence Current Visit: No Status: Chronic Qualifiers: Nicotine product type: cigarettes Substance use status: in withdrawal Qualified Code(s): F17.213 - Nicotine dependence, cigarettes, with withdrawal (6) Opioid abuse Current Visit: No Status: Chronic - Initial Treatment Plan Initial Treatment Plan: Observation. Detox Unit Care Protocol
[2017-06-18] MEDS ORDERED: METHADONE HCL 10 MG TABLET (FOR DETOX USE ONLY) PO SCH (10:00)
[2017-06-18 10:02] LABS: MCH 30.8 pg (25.7-33.7); MCHC 33.2 g/dl (32.0-35.9); MEAN CELL VOLUME 92.8 fl (80-96); MEAN PLT VOLUME 10.6 fl (7.5-11.1); PLATELET COUNT 105 K/MM3 (134-434); RDW 16.8 % (11.9-15.9); WHITE BLOOD COUNT 4.3 K/mm3 (4.0-10.0)
[2017-06-18] MEDS: PRENATAL VITAMINS W/ FOLIC ACID TABLET (FP) PO SCH (10:32)
[2017-06-18] MEDS: ASPIRIN 81 MG CHEWABLE TABLETS PO SCH (10:32)
[2017-06-18] MEDS: NICOTINE 14 MG/24 HOURS TOPICAL PATCH TD SCH (10:32)
[2017-06-18] MEDS: ENALAPRIL MALEATE 10 MG TABLET (FP) PO SCH (10:32)
[2017-06-18] MEDS: HYDROCHLOROTHIAZIDE 25 MG TABLET (FP) PO SCH (10:32)
[2017-06-18 11:43] LABS: ALBUMIN 4.1 g/dl (3.4-5.0); ALK PHOS 53 U/L (45-117); ANION GAP 9 (8-16); BILIRUBIN,TOTAL 1.5 mg/dL (0.2-1.0); CALCIUM 9.4 mg/dL (8.5-10.1); CO2 30 mmol/L (21-32); CREATININE 0.7 mg/dL (0.7-1.3); GLUCOSE,RANDOM 125 mg/dL (74-106); SGOT/AST 40 U/L (15-37); SGPT/ALT 43 U/L (12-78)
[2017-06-18 11:43] LABS: URINE LEUK ESTERASE Negative (NEGATIVE)
--- NOTE | 2017-06-18 12:28 | PN ---
[facility] CIWA - CIWA Score Nausea/Vomitin-No Nausea/No Vomiting Muscle Tremors: 3 Anxiety: 4-Mod. Anxious/Guarded Agitation: 1-Slight > Activity Paroxysmal Sweats: 3 Orientation: 0-Oriented Tacttile Disturbances: 2-Mild Itch/Numbness/Burn Auditory Disturbances: 2-Mild Harshness/Frighten Visual Disturbances: 2-Mild Sensitivity Headache: 0-None Present CIWA-Ar Total Score: 17 S COWS - Scale Resting Pulse: 1= [place] 81-100 Sweatin= Chills/Flushing Restless Observation: 1= Difficult to Sit Still Pupil Size: 0= Normal to Room Light Bone or Joint Aches: 2= Severe Diffuse Aches Runny Nose/ Eye Tearin= None GI Upset > 30mins: 1= Stomach Cramp Tremor Observation of Outstretched Hands: 2= Slight Tremor Visible Yawning Observation: 1= 1-2x During Session Anxiety or Irritability: 2=Irritable/Anxious Goose Flesh Skin: 3=Piloerection COWS Score: 14 [facility] Progress Note (SOAP) Subjective: Body Aches, Tremors, Fatigue, Sweating. Objective: PT. A & O X 3, OBSERVED AMBULATING ON UNIT. NO ACUTE DISTRESS. 06/18/17 12:25 Vital Signs Temperature 98.4 F 06/18/17 11:12 Pulse Rate 81 06/18/17 11:12 Respiratory Rate 20 06/18/17 11:12 Blood Pressure 138/77 06/18/17 11:12 O2 Sat by Pulse Oximetry (%) Laboratory Tests 06/17/17 06/18/17 06/18/17 21:00 06:00 06:00 WBC 4.3 RBC 5.44 Hgb 16.7 Hct 50.4 H MCV 92.8 MCH 30.8 MCHC 33.2 RDW 16.8 H Plt Count 105 L D MPV 10.6 D Sodium 139 Potassium 3.8 D Chloride 100 Carbon Dioxide 30 Anion Gap 9 BUN 10 Creatinine 0.7 Creat Clearance w eGFR > 60 Random Glucose 125 H Calcium 9.4 Total Bilirubin 1.5 H D AST 40 H D ALT 43 Alkaline Phosphatase 53 D Total Protein 8.0 Albumin 4.1 D Urine Color Dkyellow Urine Appearance Clear Urine pH 7.0 Ur Specific [place] 1.017 Urine Protein 1+ H Urine Glucose (UA) Negative Urine Ketones Negative Urine Blood Negative Urine Nitrite Negative Urine Bilirubin Negative Urine Urobilinogen 2.0 Ur Leukocyte Esterase Negative Urine RBC None Urine WBC 2-5 Ur Epithelial Cells Rare Urine Mucus Rare LABS NOTED. RPR RESULT PENDING. 06/18/17 12:27 Assessment: 06/18/17 12:25 WITHDRAWAL SYMPTOMS. Plan: CONTINUE DETOX. BGM ACBK FOR ELEVATED ADMISSION RANDOM GLUCOSE VALUE. INCREASE DAILY PO FLUID INTAKE.
--- NOTE | 2017-06-18 16:39 | EKG ---
Test Reason : Blood Pressure : / mmHG Vent. Rate : 082 BPM Atrial Rate : 082 BPM P-R Int : 174 ms QRS Dur : 068 ms QT Int : 340 ms P-R-T Axes : 074 071 008 degrees QTc Int : 397 ms NORMAL SINUS RHYTHM POSSIBLE LEFT ATRIAL ENLARGEMENT BORDERLINE ECG WHEN COMPARED WITH ECG OF 05-MAY-2017 23:22, VENT. RATE HAS INCREASED BY 27 BPM Confirmed by MARISELA HERNANDEZ MD ([id number]) on 06/18/2017 4:39:20 PM Referred By: Confirmed By:MARISELA HERNANDEZ MD
[2017-06-18] MEDS: THIAMINE HCL 100 MG TABLET (FP) PO SCH (22:16)
[2017-06-18] MEDS: diphenhydrAMINE HCL 25 MG CAPSULE (FP) PO PRN (22:17)
[2017-06-19] MEDS: chlordiazePOXIDE HCL 25 MG CAPSULE PO SCH ×3 (05:28→17:14)
[2017-06-19] MEDS: HYDROCHLOROTHIAZIDE 25 MG TABLET (FP) PO SCH (10:18)
[2017-06-19] MEDS: ASPIRIN 81 MG CHEWABLE TABLETS PO SCH (10:18)
[2017-06-19] MEDS: ENALAPRIL MALEATE 10 MG TABLET (FP) PO SCH (10:18)
[2017-06-19] MEDS: PRENATAL VITAMINS W/ FOLIC ACID TABLET (FP) PO SCH (10:18)
[2017-06-19] MEDS: NICOTINE 14 MG/24 HOURS TOPICAL PATCH TD SCH (10:19)
[2017-06-19] MEDS: METHADONE HCL 5 MG TABLET (FOR DETOX USE ONLY) PO SCH (10:19)
--- NOTE | 2017-06-19 11:58 | PN ---
[facility] CIWA - CIWA Score Nausea/Vomitin-No Nausea/No Vomiting Muscle Tremors: 3 Anxiety: 4-Mod. Anxious/Guarded Agitation: 2 Paroxysmal Sweats: 3 Orientation: 0-Oriented Tacttile Disturbances: 3-Moderate Itch/Numb/Burn Auditory Disturbances: 0-None Visual Disturbances: 2-Mild Sensitivity Headache: 0-None Present CIWA-Ar Total Score: 17 S COWS - Scale Resting Pulse: 0= [place] 80 or Below Sweatin= Chills/Flushing Restless Observation: 0= Sits Still Pupil Size: 0= Normal to Room Light Bone or Joint Aches: 0= None Runny Nose/ Eye Tearin= Runny Nose/Eyes GI Upset > 30mins: 1= Stomach Cramp Tremor Observation of Outstretched Hands: 2= Slight Tremor Visible Yawning Observation: 1= 1-2x During Session Anxiety or Irritability: 2=Irritable/Anxious Goose Flesh Skin: 3=Piloerection COWS Score: 12 [facility] Progress Note (SOAP) Subjective: Interrupted Sleep, Stomach Cramping, Hot / Cold Sensations, Sweating, Tremors. Objective: PT. A & O X 3. NO ACUTE DISTRESS. 06/19/17 11:55 Vital Signs Temperature 98.1 F 06/19/17 09:37 Pulse Rate 75 06/19/17 09:37 Respiratory Rate 18 06/19/17 09:37 Blood Pressure 139/86 06/19/17 09:37 O2 Sat by Pulse Oximetry (%) Laboratory Tests 06/17/17 06/18/17 06/18/17 21:00 06:00 06:00 WBC 4.3 RBC 5.44 Hgb 16.7 Hct 50.4 H MCV 92.8 MCH 30.8 MCHC 33.2 RDW 16.8 H Plt Count 105 L D MPV 10.6 D Sodium 139 Potassium 3.8 D Chloride 100 Carbon Dioxide 30 Anion Gap 9 BUN 10 Creatinine 0.7 Creat Clearance w eGFR > 60 POC Glucometer Random Glucose 125 H Calcium 9.4 Total Bilirubin 1.5 H D AST 40 H D ALT 43 Alkaline Phosphatase 53 D Total Protein 8.0 Albumin 4.1 D Urine Color Dkyellow Urine Appearance Clear Urine pH 7.0 Ur Specific [place] 1.017 Urine Protein 1+ H Urine Glucose (UA) Negative Urine Ketones Negative Urine Blood Negative Urine Nitrite Negative Urine Bilirubin Negative Urine Urobilinogen 2.0 Ur Leukocyte Esterase Negative Urine RBC None Urine WBC 2-5 Ur Epithelial Cells Rare Urine Mucus Rare RPR Titer 06/18/17 06/19/17 06:00 05:28 WBC RBC Hgb Hct MCV MCH MCHC RDW Plt Count MPV Sodium Potassium Chloride Carbon Dioxide Anion Gap BUN Creatinine Creat Clearance w eGFR POC Glucometer 127 Random Glucose Calcium Total Bilirubin AST ALT Alkaline Phosphatase Total Protein Albumin Urine Color Urine Appearance Urine pH Ur Specific [place] Urine Protein Urine Glucose (UA) Urine Ketones Urine Blood Urine Nitrite Urine Bilirubin Urine Urobilinogen Ur Leukocyte Esterase Urine RBC Urine WBC Ur Epithelial Cells Urine Mucus RPR Titer Nonreactive LABS NOTED. RESULT OF BGM ACBK NOTED. 06/19/17 11:58 Assessment: 06/19/17 11:56 WITHDRAWAL SYMPTOMS. Plan: CONTINUE DETOX. INCREASE DAILY PO FLUID INTAKE. ENCOURAGE AMBULATION.
[2017-06-19] MEDS: THIAMINE HCL 100 MG TABLET (FP) PO SCH (22:17)
[2017-06-19] MEDS: chlordiazePOXIDE 5 MG CAPSULE PO SCH (22:17)
[2017-06-19] MEDS: diphenhydrAMINE HCL 25 MG CAPSULE (FP) PO PRN (22:19)
[2017-06-20] MEDS: chlordiazePOXIDE 5 MG CAPSULE PO SCH ×3 (05:44→17:08)
[2017-06-20] MEDS: HYDROCHLOROTHIAZIDE 25 MG TABLET (FP) PO SCH ×2 (09:31→10:13)
[2017-06-20] MEDS: ASPIRIN 81 MG CHEWABLE TABLETS PO SCH (09:31)
[2017-06-20] MEDS: NICOTINE 14 MG/24 HOURS TOPICAL PATCH TD SCH (09:31)
[2017-06-20] MEDS: METHADONE HCL 5 MG TABLET (FOR DETOX USE ONLY) PO SCH ×2 (09:31→10:11)
[2017-06-20] MEDS: ENALAPRIL MALEATE 10 MG TABLET (FP) PO SCH (09:32)
[2017-06-20] MEDS: PRENATAL VITAMINS W/ FOLIC ACID TABLET (FP) PO SCH (09:32)
--- NOTE | 2017-06-20 16:14 | PN ---
[facility] Progress Note (SOAP) Subjective: Interrupted sleep, Fatigue, Sweating. Objective: PT. A & O X 3. NO ACUTE DISTRESS. 06/20/17 16:13 Vital Signs Temperature 98.1 F 06/20/17 13:11 Pulse Rate 77 06/20/17 13:11 Respiratory Rate 18 06/20/17 13:11 Blood Pressure 121/81 06/20/17 13:11 O2 Sat by Pulse Oximetry (%) Laboratory Tests 06/17/17 06/18/17 06/18/17 21:00 06:00 06:00 WBC 4.3 RBC 5.44 Hgb 16.7 Hct 50.4 H MCV 92.8 MCH 30.8 MCHC 33.2 RDW 16.8 H Plt Count 105 L D MPV 10.6 D Sodium 139 Potassium 3.8 D Chloride 100 Carbon Dioxide 30 Anion Gap 9 BUN 10 Creatinine 0.7 Creat Clearance w eGFR > 60 POC Glucometer Random Glucose 125 H Calcium 9.4 Total Bilirubin 1.5 H D AST 40 H D ALT 43 Alkaline Phosphatase 53 D Total Protein 8.0 Albumin 4.1 D Urine Color Dkyellow Urine Appearance Clear Urine pH 7.0 Ur Specific [place] 1.017 Urine Protein 1+ H Urine Glucose (UA) Negative Urine Ketones Negative Urine Blood Negative Urine Nitrite Negative Urine Bilirubin Negative Urine Urobilinogen 2.0 Ur Leukocyte Esterase Negative Urine RBC None Urine WBC 2-5 Ur Epithelial Cells Rare Urine Mucus Rare RPR Titer 06/18/17 06/19/17 06/20/17 06:00 05:28 05:46 WBC RBC Hgb Hct MCV MCH MCHC RDW Plt Count MPV Sodium Potassium Chloride Carbon Dioxide Anion Gap BUN Creatinine Creat Clearance w eGFR POC Glucometer 127 116 Random Glucose Calcium Total Bilirubin AST ALT Alkaline Phosphatase Total Protein Albumin Urine Color Urine Appearance Urine pH Ur Specific [place] Urine Protein Urine Glucose (UA) Urine Ketones Urine Blood Urine Nitrite Urine Bilirubin Urine Urobilinogen Ur Leukocyte Esterase Urine RBC Urine WBC Ur Epithelial Cells Urine Mucus RPR Titer Nonreactive LABS NOTED. Assessment: 06/20/17 16:13 WITHDRAWAL SYMPTOMS. Plan: CONTINUE DETOX.
[2017-06-20] MEDS: THIAMINE HCL 100 MG TABLET (FP) PO SCH (22:00)
[2017-06-20] MEDS: chlordiazePOXIDE HCL 10 MG CAPSULE PO SCH (22:00)
[2017-06-20] MEDS: diphenhydrAMINE HCL 25 MG CAPSULE (FP) PO PRN (22:02)
[2017-06-21] MEDS: chlordiazePOXIDE HCL 10 MG CAPSULE PO SCH ×3 (05:40→17:22)
[2017-06-21] MEDS ORDERED: METHADONE HCL 10 MG TABLET (FOR DETOX USE ONLY) PO SCH (10:00)
[2017-06-21] MEDS: NICOTINE 14 MG/24 HOURS TOPICAL PATCH TD SCH (10:01)
[2017-06-21] MEDS: PRENATAL VITAMINS W/ FOLIC ACID TABLET (FP) PO SCH (10:01)
[2017-06-21] MEDS: HYDROCHLOROTHIAZIDE 25 MG TABLET (FP) PO SCH (10:01)
[2017-06-21] MEDS: ENALAPRIL MALEATE 10 MG TABLET (FP) PO SCH (10:01)
[2017-06-21] MEDS: ASPIRIN 81 MG CHEWABLE TABLETS PO SCH (10:01)
--- NOTE | 2017-06-21 13:57 | PN ---
[facility] Progress Note (SOAP) Subjective: Stomach ache, sweating, nausea Objective: 06/21/17 13:52 Last Vital Signs Temp Pulse Resp BP Pulse Ox 98.1 F 80 18 127/73 06/21/17 13:43 06/21/17 13:43 06/21/17 13:43 06/21/17 13:43 Laboratory Tests 06/17/17 06/18/17 06/18/17 21:00 06:00 06:00 WBC 4.3 RBC 5.44 Hgb 16.7 Hct 50.4 H MCV 92.8 MCH 30.8 MCHC 33.2 RDW 16.8 H Plt Count 105 L D MPV 10.6 D Sodium 139 Potassium 3.8 D Chloride 100 Carbon Dioxide 30 Anion Gap 9 BUN 10 Creatinine 0.7 Creat Clearance w eGFR > 60 POC Glucometer Random Glucose 125 H Calcium 9.4 Total Bilirubin 1.5 H D AST 40 H D ALT 43 Alkaline Phosphatase 53 D Total Protein 8.0 Albumin 4.1 D Urine Color Dkyellow Urine Appearance Clear Urine pH 7.0 Ur Specific [place] 1.017 Urine Protein 1+ H Urine Glucose (UA) Negative Urine Ketones Negative Urine Blood Negative Urine Nitrite Negative Urine Bilirubin Negative Urine Urobilinogen 2.0 Ur Leukocyte Esterase Negative Urine RBC None Urine WBC 2-5 Ur Epithelial Cells Rare Urine Mucus Rare RPR Titer 06/18/17 06/19/17 06/20/17 06:00 05:28 05:46 WBC RBC Hgb Hct MCV MCH MCHC RDW Plt Count MPV Sodium Potassium Chloride Carbon Dioxide Anion Gap BUN Creatinine Creat Clearance w eGFR POC Glucometer 127 116 Random Glucose Calcium Total Bilirubin AST ALT Alkaline Phosphatase Total Protein Albumin Urine Color Urine Appearance Urine pH Ur Specific [place] Urine Protein Urine Glucose (UA) Urine Ketones Urine Blood Urine Nitrite Urine Bilirubin Urine Urobilinogen Ur Leukocyte Esterase Urine RBC Urine WBC Ur Epithelial Cells Urine Mucus RPR Titer Nonreactive 06/21/17 05:42 WBC RBC Hgb Hct MCV MCH MCHC RDW Plt Count MPV Sodium Potassium Chloride Carbon Dioxide Anion Gap BUN Creatinine Creat Clearance w eGFR POC Glucometer 118 Random Glucose Calcium Total Bilirubin AST ALT Alkaline Phosphatase Total Protein Albumin Urine Color Urine Appearance Urine pH Ur Specific [place] Urine Protein Urine Glucose (UA) Urine Ketones Urine Blood Urine Nitrite Urine Bilirubin Urine Urobilinogen Ur Leukocyte Esterase Urine RBC Urine WBC Ur Epithelial Cells Urine Mucus RPR Titer Labs noted: UA shows 1+ protein Assessment: 06/21/17 13:53 Withdrawal symptoms Noted with proteinuria Plan: Continue detox Proteinuria: encouraged to drink lots of water, repeat UA
[2017-06-21 16:25] LABS: URINE APPEARANCE CLEAR; URINE BILIRUBIN NEGATIVE (NEGATIVE); URINE BLOOD NEGATIVE (NEGATIVE); URINE COLOR LTYELLOW; URINE GLUCOSE (UA) NEGATIVE (NEGATIVE); URINE KETONE NEGATIVE (NEGATIVE); URINE NITRITE NEGATIVE (NEGATIVE); URINE PROTEIN NEGATIVE (NEGATIVE); URINE UROBILINOGEN NEGATIVE mg/dL (0.2-1.0)
[2017-06-21 19:05] LABS: URINE LEUK ESTERASE Negative (NEGATIVE)
[2017-06-21] MEDS: THIAMINE HCL 100 MG TABLET (FP) PO SCH (22:06)
[2017-06-21] MEDS: diphenhydrAMINE HCL 25 MG CAPSULE (FP) PO PRN (22:06)
[2017-06-21 22:08] VITALS: TEMP 98.1
[2017-06-22] MEDS ORDERED: METHADONE HCL 5 MG TABLET (FOR DETOX USE ONLY) PO SCH (06:00)
[2017-06-22 09:17] VITALS: BP 110/77; PULSE 102
--- NOTE | 2017-06-22 09:17 | DS ---
[facility] Detox Discharge Summary Admission Date: 06/17/17 Discharge Date: 06/22/17 - History Present History: Alcohol Dependence, Opioid Dependence Additional Comments: refused referral to rehab Pertinent Past History: anxiety, depression, insomnia, nicotine dependence - Physical Exam Results Vital Signs: Vital Signs Temperature 98.1 F 06/22/17 06:06 Pulse Rate 74 06/22/17 06:06 Respiratory Rate 18 06/22/17 06:06 Blood Pressure 129/75 06/22/17 06:06 O2 Sat by Pulse Oximetry (%) Laboratory Tests 06/17/17 06/18/17 06/18/17 21:00 06:00 06:00 WBC 4.3 RBC 5.44 Hgb 16.7 Hct 50.4 H MCV 92.8 MCH 30.8 MCHC 33.2 RDW 16.8 H Plt Count 105 L D MPV 10.6 D Sodium 139 Potassium 3.8 D Chloride 100 Carbon Dioxide 30 Anion Gap 9 BUN 10 Creatinine 0.7 Creat Clearance w eGFR > 60 POC Glucometer Random Glucose 125 H Calcium 9.4 Total Bilirubin 1.5 H D AST 40 H D ALT 43 Alkaline Phosphatase 53 D Total Protein 8.0 Albumin 4.1 D Urine Color Dkyellow Urine Appearance Clear Urine pH 7.0 Ur Specific [place] 1.017 Urine Protein 1+ H Urine Glucose (UA) Negative Urine Ketones Negative Urine Blood Negative Urine Nitrite Negative Urine Bilirubin Negative Urine Urobilinogen 2.0 Ur Leukocyte Esterase Negative Urine RBC None Urine WBC 2-5 Ur Epithelial Cells Rare Urine Mucus Rare RPR Titer 06/18/17 06/19/17 06/20/17 06:00 05:28 05:46 WBC RBC Hgb Hct MCV MCH MCHC RDW Plt Count MPV Sodium Potassium Chloride Carbon Dioxide Anion Gap BUN Creatinine Creat Clearance w eGFR POC Glucometer 127 116 Random Glucose Calcium Total Bilirubin AST ALT Alkaline Phosphatase Total Protein Albumin Urine Color Urine Appearance Urine pH Ur Specific [place] Urine Protein Urine Glucose (UA) Urine Ketones Urine Blood Urine Nitrite Urine Bilirubin Urine Urobilinogen Ur Leukocyte Esterase Urine RBC Urine WBC Ur Epithelial Cells Urine Mucus RPR Titer Nonreactive 06/21/17 06/21/17 06/22/17 05:42 14:31 05:10 WBC RBC Hgb Hct MCV MCH MCHC RDW Plt Count MPV Sodium Potassium Chloride Carbon Dioxide Anion Gap BUN Creatinine Creat Clearance w eGFR POC Glucometer 118 136 Random Glucose Calcium Total Bilirubin AST ALT Alkaline Phosphatase Total Protein Albumin Urine Color L[place]ellow Urine Appearance Clear Urine pH 6.0 Ur Specific [place] 1.013 Urine Protein Negative Urine Glucose (UA) Negative Urine Ketones Negative Urine Blood Negative Urine Nitrite Negative Urine Bilirubin Negative Urine Urobilinogen Negative Ur Leukocyte Esterase Negative Urine RBC Urine WBC Ur Epithelial Cells Urine Mucus RPR Titer Pertinent Admission Physical Exam Findings: withdrawal sx - Treatment Hospital Course: Detox Protocol Followed, Detoxed Safely - Medication Discharge Medications: Ambulatory Orders Aspirin [ASA -] 81 mg PO DAILY 02/04/16 Enalapril Maleate [Vasotec -] 10 mg PO DAILY 09/05/16 Hydrochlorothiazide [Hctz -] 25 mg PO DAILY 09/05/16 - Diagnosis (1) Alcohol dependence with uncomplicated withdrawal Current Visit: Yes Status: Acute (2) Insomnia Current Visit: Yes Status: Chronic Qualifiers: Insomnia type: unspecified Qualified Code(s): G47.00 - Insomnia, unspecified (3) Opioid dependence with withdrawal Current Visit: Yes Status: Acute (4) Substance induced mood disorder Current Visit: Yes Status: Acute (5) Weight loss Current Visit: Yes Status: Acute (6) Hepatitis C Current Visit: Yes Status: Chronic Qualifiers: Viral hepatitis chronicity: chronic Hepatic coma status: without hepatic coma Qualified Code(s): B18.2 - Chronic viral hepatitis C (7) Hypertension Current Visit: Yes Status: Chronic Qualifiers: Hypertension type: essential hypertension Qualified Code(s): I10 - Essential (primary) hypertension (8) Nicotine dependence Current Visit: Yes Status: Chronic Qualifiers: Nicotine product type: cigarettes Substance use status: in withdrawal Qualified Code(s): F17.213 - Nicotine dependence, cigarettes, with withdrawal - AMA Did Patient Leave Against Medical Advice: No
== END 2017-06-22 08:51 | disposition home or self-care (01) | DRG 773 ==
LOC: YASAS 11:31 → Y3N 18:42
PROVIDERS: ADMIT Internal Medicine; ATTEND Internal Medicine
PROC: HZ2ZZZZ Detoxification Services for Substance Abuse Treatment (ICD-10-PCS; principal; 2017-06-17)
DX: F11.23 Opioid dependence with withdrawal (principal); F10.230 Alcohol dependence with withdrawal, uncomplicated; F17.213 Nicotine dependence, cigarettes, with withdrawal; F19.24 Other psychoactive substance dependence with psychoactive substance-induced mood disorder; F32.9 Major depressive disorder, single episode, unspecified; G47.00 Insomnia, unspecified; B18.2 Chronic viral hepatitis C; I10 Essential (primary) hypertension; R63.4 Abnormal weight loss; Z68.25 Body mass index [BMI] 25.0-25.9, adult
CPT/HCPCS: 36415; 80053; 81003; 81015; 85027; 86593; 93005; 93010

== ENCOUNTER 2017-10-01 09:29 | Inpatient (IN) | payer OTHER ==
[2017-10-01 12:14] VITALS: BMI 23.7
--- NOTE | 2017-10-01 14:40 | HP ---
COWS - Scale Resting Pulse: 1= [place] 81-100 Sweatin= Chills/Flushing Restless Observation: 3= Extraneous Movement Pupil Size: 0= Normal to Room Light Bone or Joint Aches: 2= Severe Diffuse Aches Runny Nose/ Eye Tearin= Runny Nose/Eyes GI Upset > 30mins: 3= Vomiting/Diarrhea Tremor Observation: 2= Slight Tremor Visible Yawning Observation: 2= >3x During Session Anxiety or Irritability: 2=Irritable/Anxious Goose Flesh Skin: 0=Smooth Skin COWS Score: 18 CIWA Score - CIWA Score Nausea/Vomitin Muscle Tremors: 4-Moderate,w/Arms Extend Anxiety: 4-Mod. Anxious/Guarded Agitation: 4-Moderately Restless Paroxysmal Sweats: 1-Minimal Palms Moist Orientation: 0-Oriented Tacttile Disturbances: 2-Mild Itch/Numbness/Burn Auditory Disturbances: 0-None Visual Disturbances: 0-None Headache: 2-Mild CIWA-Ar Total Score: 19 Admission ROS [facility] - HPI Chief Complaint: withdrawal sx Allergies/Adverse Reactions: Allergies Allergy/AdvReac Type Severity Reaction Status Date / Time No Known Allergies Allergy Verified 10/01/17 12:42 History of Present Illness: 56 years old male with long history of alcohol nicotine opiates dependence has hypertension weight loss depression is admitted to detox Exam Limitations: No Limitations - Ebola screening Have you traveled outside of the country in the last 21 days: No Have you had contact with anyone from an Ebola affected area: No Have you been sick,other than usual withdrawal symptoms: No Do you have a fever: No - Review of Systems Constitutional: Loss of Appetite, Changes in sleep, Unintentional Wgt. Loss, Unexplained wgt Loss EENT: reports: Dental Problems (multiple teeth missing) Respiratory: reports: No Symptoms reported Cardiac: reports: No Symptoms Reported GI: reports: Nausea, Poor Appetite, Poor Fluid Intake, Vomiting, Abdominal cramping : reports: No Symptoms Reported Musculoskeletal: reports: Back Pain, Joint Pain, Muscle Pain, Neck Pain Integumentary: reports: No Symptoms Reported Neuro: reports: Tremors Endocrine: reports: No Symptoms Reported Hematology: reports: No Symptoms Reported Psychiatric: reports: Judgement Intact, Anxious, Depressed Other Systems: Reviewed and Negative Patient History - Patient Medical History Hx Anemia: No Hx Asthma: No Hx Chronic Obstructive Pulmonary Disease (COPD): No Hx Cancer: No Hx Cardiac Disorders: No Hx Congestive Heart Failure: No Hx Hypertension: Yes (ON MEDS.) Hx Hypercholesterolemia: No Hx Pacemaker: No HX Cerebrovascular Accident: No Hx Seizures: No Hx Dementia: No Hx Diabetes: No Hx Gastrointestinal Disorders: No Hx Liver Disease: Yes (hep c ) Hx Genitourinary Disorders: No Hx Sexually Transmitted Disorders: No Hx Renal Disease (ESRD): No Hx Thyroid Disease: No Hx Human Immunodeficiency Virus (HIV): No (NEGATIVE HX last 10/23) Hx Hepatitis C: Yes (TREATED, cleared virus) Hx Depression: Yes Hx Suicide Attempt: No Hx Bipolar Disorder: No Hx Schizophrenia: No - Patient Surgical History Past Surgical History: No Hx Neurologic Surgery: No Hx Cataract Extraction: No Hx Cardiac Surgery: No Hx Lung Surgery: No Hx Breast Surgery: No Hx Breast Biopsy: No Hx Abdominal Surgery: No Hx Appendectomy: No Hx Cholecystectomy: No Hx Genitourinary Surgery: No Hx Orthopedic Surgery: No - PPD History Previous Implant?: Yes Documented Results: Negative w/proof Implanted On Prior R Admission?: Yes Date: 11/07/16 Results: 0 MM PPD to be Administered?: No - Smoking Cessation Smoking history: Current every day smoker Have you smoked in the past 12 months: Yes Aproximately how many cigarettes per day: 20 Cigars Per Day: 0 Hx Chewing Tobacco Use: No Initiated information on smoking cessation: Yes 'Breaking Loose' booklet given: 10/01/17 - Substance & Tx. History Hx Alcohol Use: Yes Hx Substance Use: Yes Substance Use Type: Alcohol, Heroin, Opiates Hx Substance Use Treatment: Yes (06/2017 [facility] - Substances Abused Heroin Route: Inhalation Frequency: Daily Amount used: 13 BAGS Age of first use: 19 Date of Last Use: 09/30/17 Alcohol Route: Oral Frequency: Daily Amount used: FIFTH OF VODKA Age of first use: 66 Date of Last Use: 09/30/17 Family Disease History - Family Disease History Family Disease History: Other: Father (NO CONTACT), Mother (htn ) Admission Physical Exam [facility] - Vital Signs Vital Signs: Vital Signs - 24 hr 10/01/17 12:10 Temperature 98.8 F Pulse Rate 89 Respiratory 20 Rate Blood Pressure 135/84 - Physical General Appearance: Yes: Appropriately Dressed, Moderate Distress, Thin, Tremorous, Irritable, Sweating, Anxious HEENTM: Yes: Hearing grossly Normal, Normal ENT Inspection, Normocephalic, Normal Voice Respiratory: Yes: Chest Non-Tender, Lungs Clear, Normal Breath Sounds, No Respiratory Distress, No Accessory Muscle Use Neck: Yes: Supple, Trachea in good position Breast: Yes: Breasts Symetrical Cardiology: Yes: Regular Rhythm, Regular Rate, S1, S2 Abdominal: Yes: Non Tender, Flat, Increased Bowel Sounds Genitourinary: Yes: Within Normal Limits Back: Yes: Normal Inspection Musculoskeletal: Yes: full range of Motion, Gait Steady, Back pain, Muscle Pain Extremities: Yes: Normal Inspection, Normal Range of Motion, Non-Tender, Tremors 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: Yes: Alert, Motor Strength 5/5, Normal Response, Depressed Affect Integumentary: Yes: Warm Lymphatic: Yes: Within Normal Limits - Diagnostic (1) Alcohol dependence with uncomplicated withdrawal Current Visit: Yes Status: Acute (2) Opioid dependence with withdrawal Current Visit: Yes Status: Acute (3) Hepatitis C Current Visit: Yes Status: Resolved Qualifiers: Viral hepatitis chronicity: chronic Hepatic coma status: without hepatic coma Qualified Code(s): B18.2 - Chronic viral hepatitis C (4) Hypertension Current Visit: Yes Status: Chronic Qualifiers: Hypertension type: essential hypertension Qualified Code(s): I10 - Essential (primary) hypertension (5) Nicotine dependence Current Visit: Yes Status: Acute Qualifiers: Nicotine product type: cigarettes Substance use status: in withdrawal Qualified Code(s): F17.213 - Nicotine dependence, cigarettes, with withdrawal (6) Depression (emotion) Current Visit: Yes Status: Suspected Qualifiers: Depression Type: dysthymia Qualified Code(s): F34.1 - Dysthymic disorder Cleared for Admission [facility] - [facility]ox [facility]hab [facility] Level of Care: Medically Managed Detox Regimen/Protocol: Methadone/Valium [facility] Breath Alcohol Content Breath Alcohol Content: 0 Urine Drug Screen - Results Drug Screen Negative: No Urine Drug Screen Results: OPI-Opiates, BZO-Benzodiazepines, OXY-Oxycodone
[2017-10-01] MEDS ORDERED: MENTHOL/PHENOL 1 EACH UD MM PRN (14:46)
[2017-10-01] MEDS ORDERED: guaiFENesin/D-METHORPHAN HB 10 ML UNIT-DOSE CUPS PO PRN (14:46)
[2017-10-01] MEDS ORDERED: ACETAMINOPHEN 325 MG TABLET (FP) PO PRN (14:46)
[2017-10-01] MEDS ORDERED: NICOTINE POLACRILEX 4 MG GUM BUC PRN (14:46)
[2017-10-01] MEDS ORDERED: MAGNESIUM HYDROX 2400MG/30ML ORAL SUSPENSION 30 ML CUP PO PRN (14:46)
[2017-10-01] MEDS ORDERED: P-EPHED 60MG/TRIPROLIDI 2.5MG TABLET PO PRN (14:46)
[2017-10-01] MEDS ORDERED: MAGNESIUM CITRATE 300 ML BOTTLE PO PRN (14:46)
[2017-10-01] MEDS ORDERED: LOPERAMIDE HCL 2 MG CAPSULE PO PRN (14:46)
[2017-10-01] MEDS ORDERED: IBUPROFEN 400 MG TABLET (FP) PO PRN (14:46)
[2017-10-01] MEDS ORDERED: MAG HYDROX/AL HYDROX/SIMETH 30 ML UNIT-DOSE CUP PO PRN (14:46)
[2017-10-01] MEDS ORDERED: diazePAM 5 MG TABLET PO ONE (14:56)
[2017-10-01] MEDS ORDERED: METHADONE HCL 10 MG TABLET (FOR DETOX USE ONLY) PO ONE ×2 (14:57→23:00)
[2017-10-01] MEDS: hydrOXYzine PAMOATE 50 MG CAPSULE (FP) PO PRN (17:17)
[2017-10-01] MEDS: CYCLOBENZAPRINE HCL 5 MG TABLET PO PRN (17:17)
[2017-10-01 18:07] LABS: URINE APPEARANCE TURBID; URINE BILIRUBIN NEGATIVE (NEGATIVE); URINE BLOOD NEGATIVE (NEGATIVE); URINE COLOR RED; URINE GLUCOSE (UA) NEGATIVE (NEGATIVE); URINE KETONE NEGATIVE (NEGATIVE); URINE LEUK ESTERASE NEGATIVE (NEGATIVE); URINE NITRITE NEGATIVE (NEGATIVE)
[2017-10-01 18:22] LABS: URINE PROTEIN 1+ (NEGATIVE)
[2017-10-01 18:31] LABS: EPI CELLS RARE /HPF (FEW); URINE BACTERIA RARE /hpf (NONE SEEN); URINE MUCUS FEW
[2017-10-01] MEDS: diazePAM 5 MG TABLET PO PRN ×2 (19:36→22:39)
[2017-10-01] MEDS: THIAMINE HCL 100 MG TABLET (FP) PO SCH (22:38)
[2017-10-01] MEDS: diazePAM 5 MG TABLET PO SCH (22:39)
[2017-10-02] MEDS: diazePAM 5 MG TABLET PO PRN ×3 (02:21→17:31)
[2017-10-02] MEDS: diazePAM 5 MG TABLET PO SCH ×3 (05:40→22:34)
[2017-10-02] MEDS ORDERED: METHADONE HCL 10 MG TABLET (FOR DETOX USE ONLY) PO SCH (10:00)
[2017-10-02 10:21] LABS: HEMATOCRIT 52.3 % (35.4-49); MCH 31.2 pg (25.7-33.7); MCHC 32.4 g/dl (32.0-35.9); MEAN PLT VOLUME 10.3 fl (7.5-11.1); PLATELET COUNT 143 K/MM3 (134-434); RBC 5.45 M/mm3 (4.00-5.60); RDW 14.5 % (11.9-15.9); WHITE BLOOD COUNT 4.3 K/mm3 (4.0-10.0)
[2017-10-02 10:29] LABS: CHLORIDE 96 mmol/L (98-107); POTASSIUM 3.7 mmol/L (3.5-5.1); SODIUM 141 mmol/L (136-145)
[2017-10-02] MEDS: cloNIDine HCL 0.1 MG TABLET PO SCH ×2 (10:34→22:34)
[2017-10-02] MEDS: PRENATAL VITAMINS W/ FOLIC ACID TABLET (FP) PO SCH (10:34)
[2017-10-02] MEDS: ASPIRIN 81 MG CHEWABLE TABLETS PO SCH (10:35)
[2017-10-02] MEDS: CYCLOBENZAPRINE HCL 5 MG TABLET PO PRN (10:35)
[2017-10-02] MEDS: ENALAPRIL MALEATE 10 MG TABLET (FP) PO SCH (10:35)
[2017-10-02] MEDS: NICOTINE 21 MG/24 HOURS TOPICAL PATCH TD SCH (10:36)
[2017-10-02 10:45] LABS: ALBUMIN 4.3 g/dl (3.4-5.0); ALK PHOS 38 U/L (45-117); ANION GAP 13 (8-16); BILIRUBIN,TOTAL 0.9 mg/dL (0.2-1.0); BLOOD UREA NITROGEN 8 mg/dL (7-18); CALCIUM 9.6 mg/dL (8.5-10.1); CO2 32 mmol/L (21-32); CREATININE 0.8 mg/dL (0.7-1.3); GLUCOSE,RANDOM 100 mg/dL (74-106); SGOT/AST 104 U/L (15-37); SGPT/ALT 95 U/L (12-78); TOT PROT 8.3 g/dl (6.4-8.2)
--- NOTE | 2017-10-02 10:51 | PN ---
[facility] CIWA - CIWA Score Nausea/Vomitin Muscle Tremors: 3 Anxiety: 3 Agitation: 3 Paroxysmal Sweats: 1-Minimal Palms Moist Orientation: 0-Oriented Tacttile Disturbances: 1-Very Mild Itch/Numbness Auditory Disturbances: 1-Very Mild Visual Disturbances: 0-None Headache: 2-Mild CIWA-Ar Total Score: 17 [facility] COWS - Scale Resting Pulse: 0= [place] 80 or Below Sweatin= Chills/Flushing Restless Observation: 3= Extraneous Movement Pupil Size: 1= Pupils >than Normal Bone or Joint Aches: 2= Severe Diffuse Aches Runny Nose/ Eye Tearin= Runny Nose/Eyes GI Upset > 30mins: 3= Vomiting/Diarrhea Tremor Observation of Outstretched Hands: 2= Slight Tremor Visible Yawning Observation: 1= 1-2x During Session Anxiety or Irritability: 2=Irritable/Anxious Goose Flesh Skin: 0=Smooth Skin COWS Score: 17 [facility] Progress Note (SOAP) Subjective: ALERT,IRRITABLE,ANXIOUS,INTERRUPTED SLEEP,TREMOR,PAIN IN THE BODY AND BACK, EXTREMITIES Objective: 10/02/17 10:48 Vital Signs Temperature 98.6 F 10/02/17 06:48 Pulse Rate 71 10/02/17 06:48 Respiratory Rate 18 10/02/17 06:48 Blood Pressure 143/85 10/02/17 06:48 O2 Sat by Pulse Oximetry (%) EKG NSR PROLONG QT 422/493 NO CHEST PAIN,NO SOB,NO DIZZINESS Laboratory Last Values WBC 4.3 K/mm3 (4.0-10.0) 10/02/17 06:00 RBC 5.45 M/mm3 (4.00-5.60) 10/02/17 06:00 Hgb 17.0 GM/dL (11.7-16.9) H 10/02/17 06:00 Hct 52.3 % (35.4-49) H 10/02/17 06:00 MCV 96.0 fl (80-96) 10/02/17 06:00 MCH 31.2 pg (25.7-33.7) 10/02/17 06:00 MCHC 32.4 g/dl (32.0-35.9) 10/02/17 06:00 RDW 14.5 % (11.9-15.9) D 10/02/17 06:00 Plt Count 143 K/MM3 (134-434) D 10/02/17 06:00 MPV 10.3 fl (7.5-11.1) 10/02/17 06:00 Urine Color Red 10/01/17 16:00 Urine Appearance Turbid 10/01/17 16:00 Urine pH 5.0 (5.0-8.0) 10/01/17 16:00 Ur Specific [place] 1.018 (1.001-1.035) 10/01/17 16:00 Urine Protein 1+ (NEGATIVE) H 10/01/17 16:00 Urine Glucose (UA) Negative (NEGATIVE) 10/01/17 16:00 Urine Ketones Negative (NEGATIVE) 10/01/17 16:00 Urine Blood Negative (NEGATIVE) 10/01/17 16:00 Urine Nitrite Negative (NEGATIVE) 10/01/17 16:00 Urine Bilirubin Negative (NEGATIVE) 10/01/17 16:00 Urine Urobilinogen 2.0 mg/dL (0.2-1.0) 10/01/17 16:00 Ur Leukocyte Esterase Negative (NEGATIVE) 10/01/17 16:00 Urine WBC (Auto) 3 /hpf (3-5) 10/01/17 16:00 Urine RBC (Auto) 6 /hpf (0-3) 10/01/17 16:00 Ur Epithelial Cells Rare /HPF (FEW) 10/01/17 16:00 Urine Bacteria Rare /hpf (NONE SEEN) 10/01/17 16:00 Urine Mucus Few 10/01/17 16:00 LABS PENDING Assessment: 10/02/17 10:50 WITHDRAWAL SYMPTOM Plan: CONTINUE DETOX
--- NOTE | 2017-10-02 10:57 | CONSULT ---
[facility] Psychiatric Consult - Data Date of interview: 10/02/17 Admission source: [facility] Substance Abuse History: Following information confirmed with Mr. Oconnell: Smoking Cessation. Smoking history: Current every day smoker. Have you smoked in the past 12 months: Yes. Aproximately how many cigarettes per day: 20. Cigars Per Day: 0. Hx Chewing Tobacco Use: No. Initiated information on smoking cessation: Yes. 'Breaking Loose' booklet given: 10/01/17. - Substance & Tx. History. Hx Alcohol Use: Yes. Hx Substance Use: Yes. Substance Use Type : Alcohol, Heroin, Opiates. Hx Substance Use Treatment: Yes (06/2017 [facility]) . - Substances Abused. Heroin. Route: Inhalation. Frequency: Daily. Amount used: 13 BAGS. Age of first use: 19. Date of Last Use: 09/30/17. Alcohol. Route: Oral. Frequency: Daily. Amount used: FIFTH OF VODKA. Age of first use: 66. Date of Last Use: 09/30/17. Medical History: hypertension, Hep C Psychiatric History: Pt. denies h/o psychiatric hospitalizations, suicide attempts, and outpatient care. Physical/Sexual Abuse/Trauma History: Denies. Mental Status Exam - Mental Status Exam Alert and Oriented to: Time, Place, Person Cognitive Function: Good Patient Appearance: Unkempt Mood: Withdrawn Affect: Flat Patient Behavior: Guarded Speech Pattern: Delayed Voice Loudness: Moderately Soft/Quiet Thought Process: Goal Oriented Thought Disorder: Not Present Hallucinations: Denies Suicidal Ideation: Denies Homicidal Ideation: Denies Insight/Judgement: Poor Sleep: Fair Appetite: Poor Muscle strength/Tone: Normal Gait/Station: Other (Did not observe patient's gait.) Psychiatric Findings - Problem List ([place] 1, 2,3) (1) Alcohol dependence with uncomplicated withdrawal Current Visit: Yes Status: Acute (2) Opioid dependence with withdrawal Current Visit: Yes Status: Acute (3) Substance induced mood disorder Current Visit: Yes Status: Acute - Initial Treatment Plan Initial Treatment Plan: Psychoeducation provided. Detoxification in progress. Benadryl 25mg qhs ordered for insomnia. Benefits and side effects discussed. Pt. reports favorable effect from previously taking benadryl. Verbal consent given.
[2017-10-02] MEDS: diphenhydrAMINE HCL 25 MG CAPSULE (FP) PO PRN (22:34)
[2017-10-02] MEDS: THIAMINE HCL 100 MG TABLET (FP) PO SCH (22:34)
[2017-10-03] MEDS: ENALAPRIL MALEATE 10 MG TABLET (FP) PO SCH (10:55)
[2017-10-03] MEDS: ASPIRIN 81 MG CHEWABLE TABLETS PO SCH (10:55)
[2017-10-03] MEDS: cloNIDine HCL 0.1 MG TABLET PO SCH ×2 (10:55→21:42)
[2017-10-03] MEDS: diazePAM 5 MG TABLET PO SCH ×2 (10:56→21:42)
[2017-10-03] MEDS: METHADONE HCL 5 MG TABLET (FOR DETOX USE ONLY) PO SCH (10:56)
[2017-10-03] MEDS: NICOTINE 21 MG/24 HOURS TOPICAL PATCH TD SCH (10:56)
[2017-10-03] MEDS: PRENATAL VITAMINS W/ FOLIC ACID TABLET (FP) PO SCH (10:56)
[2017-10-03] MEDS: diazePAM 5 MG TABLET PO PRN (16:54)
--- NOTE | 2017-10-03 20:35 | PN ---
[facility] CIWA - CIWA Score Nausea/Vomitin Muscle Tremors: 3 Anxiety: 3 Agitation: 3 Paroxysmal Sweats: 2 Orientation: 0-Oriented Tacttile Disturbances: 0-None Auditory Disturbances: 0-None Visual Disturbances: 0-None Headache: 0-None Present CIWA-Ar Total Score: 14 [facility] COWS - Scale Resting Pulse: 0= [place] 80 or Below Sweatin=Flushed/Facial Moisture Restless Observation: 1= Difficult to Sit Still Pupil Size: 0= Normal to Room Light Bone or Joint Aches: 1= Mild Discomfort Runny Nose/ Eye Tearin= Nasal Congestion GI Upset > 30mins: 1= Stomach Cramp Tremor Observation of Outstretched Hands: 2= Slight Tremor Visible Yawning Observation: 0= None Anxiety or Irritability: 2=Irritable/Anxious Goose Flesh Skin: 0=Smooth Skin COWS Score: 10 [facility] Progress Note (SOAP) Subjective: tired abd cramp shakes Objective: Sleepy arousable to verbal stimuli Vital Signs Temperature 98.1 F 10/03/17 18:12 Pulse Rate 60 10/03/17 18:12 Respiratory Rate 20 10/03/17 18:12 Blood Pressure 145/87 10/03/17 18:12 O2 Sat by Pulse Oximetry (%) Laboratory Last Values WBC 4.3 K/mm3 (4.0-10.0) 10/02/17 06:00 RBC 5.45 M/mm3 (4.00-5.60) 10/02/17 06:00 Hgb 17.0 GM/dL (11.7-16.9) H 10/02/17 06:00 Hct 52.3 % (35.4-49) H 10/02/17 06:00 MCV 96.0 fl (80-96) 10/02/17 06:00 MCH 31.2 pg (25.7-33.7) 10/02/17 06:00 MCHC 32.4 g/dl (32.0-35.9) 10/02/17 06:00 RDW 14.5 % (11.9-15.9) D 10/02/17 06:00 Plt Count 143 K/MM3 (134-434) D 10/02/17 06:00 MPV 10.3 fl (7.5-11.1) 10/02/17 06:00 Sodium 141 mmol/L (136-145) 10/02/17 06:00 Potassium 3.7 mmol/L (3.5-5.1) 10/02/17 06:00 Chloride 96 mmol/L (98-107) L 10/02/17 06:00 Carbon Dioxide 32 mmol/L (21-32) 10/02/17 06:00 Anion Gap 13 (8-16) 10/02/17 06:00 BUN 8 mg/dL (7-18) 10/02/17 06:00 Creatinine 0.8 mg/dL (0.7-1.3) 10/02/17 06:00 Creat Clearance w eGFR > 60 (>60) 10/02/17 06:00 Random Glucose 100 mg/dL (74-106) 10/02/17 06:00 Calcium 9.6 mg/dL (8.5-10.1) 10/02/17 06:00 Total Bilirubin 0.9 mg/dL (0.2-1.0) D 10/02/17 06:00 AST 104 U/L (15-37) H D 10/02/17 06:00 ALT 95 U/L (12-78) H D 10/02/17 06:00 Alkaline Phosphatase 38 U/L (45-117) L D 10/02/17 06:00 Total Protein 8.3 g/dl (6.4-8.2) H 10/02/17 06:00 Albumin 4.3 g/dl (3.4-5.0) 10/02/17 06:00 Urine Color Red 10/01/17 16:00 Urine Appearance Turbid 10/01/17 16:00 Urine pH 5.0 (5.0-8.0) 10/01/17 16:00 Ur Specific [place] 1.018 (1.001-1.035) 10/01/17 16:00 Urine Protein 1+ (NEGATIVE) H 10/01/17 16:00 Urine Glucose (UA) Negative (NEGATIVE) 10/01/17 16:00 Urine Ketones Negative (NEGATIVE) 10/01/17 16:00 Urine Blood Negative (NEGATIVE) 10/01/17 16:00 Urine Nitrite Negative (NEGATIVE) 10/01/17 16:00 Urine Bilirubin Negative (NEGATIVE) 02/22/18 16:00 Urine Urobilinogen 2.0 mg/dL (0.2-1.0) 10/01/17 16:00 Ur Leukocyte Esterase Negative (NEGATIVE) 10/01/17 16:00 Urine WBC (Auto) 3 /hpf (3-5) 10/01/17 16:00 Urine RBC (Auto) 6 /hpf (0-3) 10/01/17 16:00 Ur Epithelial Cells Rare /HPF (FEW) 10/01/17 16:00 Urine Bacteria Rare /hpf (NONE SEEN) 10/01/17 16:00 Urine Mucus Few 10/01/17 16:00 RPR Titer Nonreactive (NONREACTIVE) 10/02/17 06:00 labs noted Assessment: 10/03/17 20:35 withdrawal sx Plan: continue detox
[2017-10-03] MEDS: CYCLOBENZAPRINE HCL 5 MG TABLET PO PRN (21:42)
[2017-10-03] MEDS: THIAMINE HCL 100 MG TABLET (FP) PO SCH (21:42)
[2017-10-04] MEDS: diazePAM 5 MG TABLET PO PRN ×2 (04:11→14:07)
[2017-10-04] MEDS: diazePAM 5 MG TABLET PO SCH ×2 (10:34→22:25)
[2017-10-04] MEDS: ASPIRIN 81 MG CHEWABLE TABLETS PO SCH (10:35)
[2017-10-04] MEDS: NICOTINE 21 MG/24 HOURS TOPICAL PATCH TD SCH (10:35)
[2017-10-04] MEDS: ENALAPRIL MALEATE 10 MG TABLET (FP) PO SCH (10:35)
[2017-10-04] MEDS: cloNIDine HCL 0.1 MG TABLET PO SCH ×2 (10:35→22:25)
[2017-10-04] MEDS: METHADONE HCL 5 MG TABLET (FOR DETOX USE ONLY) PO SCH (10:35)
[2017-10-04] MEDS: PRENATAL VITAMINS W/ FOLIC ACID TABLET (FP) PO SCH (10:35)
--- NOTE | 2017-10-04 11:23 | PN ---
[facility] Progress Note (SOAP) Subjective: tremor anxiety sweat joint aches irestlessness Objective: 10/04/17 11:23 Vital Signs Temperature 98.1 F 10/04/17 10:00 Pulse Rate 67 10/04/17 10:00 Respiratory Rate 18 10/04/17 10:00 Blood Pressure 144/89 10/04/17 10:00 O2 Sat by Pulse Oximetry (%) Laboratory Last Values WBC 4.3 K/mm3 (4.0-10.0) 10/02/17 06:00 RBC 5.45 M/mm3 (4.00-5.60) 10/02/17 06:00 Hgb 17.0 GM/dL (11.7-16.9) H 10/02/17 06:00 Hct 52.3 % (35.4-49) H 10/02/17 06:00 MCV 96.0 fl (80-96) 10/02/17 06:00 MCH 31.2 pg (25.7-33.7) 10/02/17 06:00 MCHC 32.4 g/dl (32.0-35.9) 10/02/17 06:00 RDW 14.5 % (11.9-15.9) D 10/02/17 06:00 Plt Count 143 K/MM3 (134-434) D 10/02/17 06:00 MPV 10.3 fl (7.5-11.1) 10/02/17 06:00 Sodium 141 mmol/L (136-145) 10/02/17 06:00 Potassium 3.7 mmol/L (3.5-5.1) 10/02/17 06:00 Chloride 96 mmol/L (98-107) L 10/02/17 06:00 Carbon Dioxide 32 mmol/L (21-32) 10/02/17 06:00 Anion Gap 13 (8-16) 10/02/17 06:00 BUN 8 mg/dL (7-18) 10/02/17 06:00 Creatinine 0.8 mg/dL (0.7-1.3) 10/02/17 06:00 Creat Clearance w eGFR > 60 (>60) 10/02/17 06:00 Random Glucose 100 mg/dL (74-106) 10/02/17 06:00 Calcium 9.6 mg/dL (8.5-10.1) 10/02/17 06:00 Total Bilirubin 0.9 mg/dL (0.2-1.0) D 10/02/17 06:00 AST 104 U/L (15-37) H D 10/02/17 06:00 ALT 95 U/L (12-78) H D 10/02/17 06:00 Alkaline Phosphatase 38 U/L (45-117) L D 10/02/17 06:00 Total Protein 8.3 g/dl (6.4-8.2) H 10/02/17 06:00 Albumin 4.3 g/dl (3.4-5.0) 10/02/17 06:00 Urine Color Red 10/01/17 16:00 Urine Appearance Turbid 10/01/17 16:00 Urine pH 5.0 (5.0-8.0) 10/01/17 16:00 Ur Specific [place] 1.018 (1.001-1.035) 10/01/17 16:00 Urine Protein 1+ (NEGATIVE) H 10/01/17 16:00 Urine Glucose (UA) Negative (NEGATIVE) 10/01/17 16:00 Urine Ketones Negative (NEGATIVE) 10/01/17 16:00 Urine Blood Negative (NEGATIVE) 10/01/17 16:00 Urine Nitrite Negative (NEGATIVE) 10/01/17 16:00 Urine Bilirubin Negative (NEGATIVE) 10/01/17 16:00 Urine Urobilinogen 2.0 mg/dL (0.2-1.0) 10/01/17 16:00 Ur Leukocyte Esterase Negative (NEGATIVE) 10/01/17 16:00 Urine WBC (Auto) 3 /hpf (3-5) 10/01/17 16:00 Urine RBC (Auto) 6 /hpf (0-3) 10/01/17 16:00 Ur Epithelial Cells Rare /HPF (FEW) 10/01/17 16:00 Urine Bacteria Rare /hpf (NONE SEEN) 10/01/17 16:00 Urine Mucus Few 10/01/17 16:00 RPR Titer Nonreactive (NONREACTIVE) 10/02/17 06:00 lab noted Assessment: 10/04/17 11:23 withdrawal sx Plan: continue detox
[2017-10-04] MEDS: THIAMINE HCL 100 MG TABLET (FP) PO SCH (22:25)
[2017-10-04] MEDS: diphenhydrAMINE HCL 25 MG CAPSULE (FP) PO PRN (22:26)
[2017-10-05] MEDS ORDERED: diazePAM 5 MG TABLET PO SCH (10:00)
[2017-10-05] MEDS ORDERED: METHADONE HCL 10 MG TABLET (FOR DETOX USE ONLY) PO SCH (10:00)
[2017-10-05] MEDS: cloNIDine HCL 0.1 MG TABLET PO SCH ×2 (10:15→22:22)
[2017-10-05] MEDS: ENALAPRIL MALEATE 10 MG TABLET (FP) PO SCH (10:15)
[2017-10-05] MEDS: ASPIRIN 81 MG CHEWABLE TABLETS PO SCH (10:16)
[2017-10-05] MEDS: PRENATAL VITAMINS W/ FOLIC ACID TABLET (FP) PO SCH (10:16)
[2017-10-05] MEDS: NICOTINE 21 MG/24 HOURS TOPICAL PATCH TD SCH (10:16)
--- NOTE | 2017-10-05 11:11 | PN ---
[facility] Progress Note (SOAP) Subjective: ALERT,IRRITABLE,ANXIOUS,INTERRUPTED SLEEP,PAIN IN THE BODY Objective: 10/05/17 11:10 Vital Signs Temperature 98.2 F 10/05/17 11:01 Pulse Rate 78 10/05/17 11:01 Respiratory Rate 18 10/05/17 11:01 Blood Pressure 116/71 10/05/17 11:01 O2 Sat by Pulse Oximetry (%) Assessment: 10/05/17 11:10 WITHDRAWAL SYMPTOM Plan: CONTINUE DETOX,DISCHARGE IN AM
[2017-10-05] MEDS: hydrOXYzine PAMOATE 50 MG CAPSULE (FP) PO PRN (17:37)
[2017-10-05] MEDS: THIAMINE HCL 100 MG TABLET (FP) PO SCH (22:22)
[2017-10-05] MEDS: diphenhydrAMINE HCL 25 MG CAPSULE (FP) PO PRN (22:22)
[2017-10-06] MEDS ORDERED: METHADONE HCL 5 MG TABLET (FOR DETOX USE ONLY) PO SCH (06:00)
[2017-10-06 06:16] VITALS: BP 153/89; PULSE 89; TEMP 97.2
--- NOTE | 2017-10-06 08:35 | DS ---
[facility] Detox Discharge Summary Admission Date: 10/01/17 Discharge Date: 10/06/17 - History Present History: Alcohol Dependence, Opioid Dependence Pertinent Past History: hypertension hepatitis c nicotine dependence - Physical Exam Results Vital Signs: Vital Signs Temperature 97.2 F L 10/06/17 06:16 Pulse Rate 89 10/06/17 06:16 Respiratory Rate 20 10/06/17 06:16 Blood Pressure 153/89 10/06/17 06:16 O2 Sat by Pulse Oximetry (%) Pertinent Admission Physical Exam Findings: withdrawal signs and symptom - Treatment Hospital Course: Detox Protocol Followed, Detoxed Safely, Responded well, Discharged Condition Good Patient has Accepted a Rehab Referral to: declined - Medication Discharge Medications: Ambulatory Orders Aspirin [ASA -] 81 mg PO DAILY 02/04/16 Enalapril Maleate [Vasotec -] 10 mg PO DAILY 09/05/16 Hydrochlorothiazide [Hctz -] 25 mg PO DAILY 09/05/16 - Diagnosis (1) Opioid dependence with withdrawal Current Visit: Yes Status: Acute (2) Alcohol dependence with uncomplicated withdrawal Current Visit: Yes Status: Acute (3) Nicotine dependence Current Visit: Yes Status: Acute Qualifiers: Nicotine product type: cigarettes Substance use status: in withdrawal Qualified Code(s): F17.213 - Nicotine dependence, cigarettes, with withdrawal (4) Hypertension Current Visit: Yes Status: Chronic Qualifiers: Hypertension type: essential hypertension Qualified Code(s): I10 - Essential (primary) hypertension (5) Hepatitis C Current Visit: Yes Status: Resolved Qualifiers: Viral hepatitis chronicity: chronic Hepatic coma status: without hepatic coma Qualified Code(s): B18.2 - Chronic viral hepatitis C - AMA Did Patient Leave Against Medical Advice: No
--- NOTE | 2017-10-06 13:39 | EKG ---
Test Reason : Blood Pressure : / mmHG Vent. Rate : 082 BPM Atrial Rate : 082 BPM P-R Int : 150 ms QRS Dur : 080 ms QT Int : 422 ms P-R-T Axes : 071 067 040 degrees QTc Int : 493 ms NORMAL SINUS RHYTHM PROLONGED QT ABNORMAL ECG WHEN COMPARED WITH ECG OF 17-JUN-2017 20:46, QT HAS LENGTHENED Confirmed by MD Mik, Donell ([id number]) on 10/06/2017 1:38:48 PM Referred By: Confirmed By:Donell Houser MD
== END 2017-10-06 09:27 | disposition home or self-care (01) | DRG 773 ==
LOC: YASAS 09:29 → Y6N 14:39
PROVIDERS: ADMIT Internal Medicine; ATTEND Internal Medicine
PROC: HZ2ZZZZ Detoxification Services for Substance Abuse Treatment (ICD-10-PCS; principal; 2017-10-01)
DX: F11.23 Opioid dependence with withdrawal (principal); F10.230 Alcohol dependence with withdrawal, uncomplicated; F17.210 Nicotine dependence, cigarettes, uncomplicated; F19.24 Other psychoactive substance dependence with psychoactive substance-induced mood disorder; F34.1 Dysthymic disorder; I10 Essential (primary) hypertension; B18.2 Chronic viral hepatitis C; R63.4 Abnormal weight loss; Z68.23 Body mass index [BMI] 23.0-23.9, adult
CPT/HCPCS: 36415; 80053; 81003; 81015; 85027; 86593; 93005; 93010; J0735

== ENCOUNTER 2017-11-19 10:57 | Inpatient (IN) | payer OTHER ==
[2017-11-19 14:25] VITALS: BMI 25.2
--- NOTE | 2017-11-19 21:56 | HP ---
COWS - Scale Resting Pulse: 1= [place] 81-100 Sweatin= Chills/Flushing Restless Observation: 1= Difficult to Sit Still Pupil Size: 0= Normal to Room Light Bone or Joint Aches: 4=Acute Joint/Muscle Pain Runny Nose/ Eye Tearin= Nasal Congestion GI Upset > 30mins: 3= Vomiting/Diarrhea Tremor Observation: 4= Gross Tremor/Twitching Yawning Observation: 0= None Anxiety or Irritability: 2=Irritable/Anxious Goose Flesh Skin: 0=Smooth Skin COWS Score: 17 CIWA Score - CIWA Score Nausea/Vomitin Muscle Tremors: 4-Moderate,w/Arms Extend Anxiety: 4-Mod. Anxious/Guarded Agitation: 4-Moderately Restless Paroxysmal Sweats: 3 Orientation: 0-Oriented Tacttile Disturbances: 3-Moderate Itch/Numb/Burn Auditory Disturbances: 0-None Visual Disturbances: 0-None Headache: 3-Moderate CIWA-Ar Total Score: 24 Admission ROS BHS - HPI Chief Complaint: C/O WITHDRAWAL SX'S. SEEKING DETOX FOR ALCOHOLISM AND OPIOID DEPENDENCE Allergies/Adverse Reactions: Allergies Allergy/AdvReac Type Severity Reaction Status Date / Time No Known Allergies Allergy Verified 10/01/17 12:42 History of Present Illness: 67 Y.O. MALE WITH POLYSUBSTANCE DEPENDENCE HERE FOR DETOX. CLIENT IS KNOWN TO THIS PROGRAM LAST HERE 2 MONTHS AGO. UTOX + FOR MTD AND BENZO. CLIENT DENIES OTP , OR RECENT DETOX. FEELS THAT THE HEROIN IS CUT WITH IT. SELF REFERRED. LONGEST CLEAN TIME 6 MONTHS. ADMITTED FOR DETOX FROM ALCOHOL AND HEROIN DEPENDENCE Exam Limitations: No Limitations - Ebola screening Have you traveled outside of the country in the last 21 days: No (n) Have you had contact with anyone from an Ebola affected area: No Have you been sick,other than usual withdrawal symptoms: No Do you have a fever: No - Review of Systems Constitutional: Chills, Loss of Appetite, Malaise, Night Sweats, Changes in sleep EENT: reports: Nose Congestion, Dental Problems (MISSING TEETH) Respiratory: reports: Shortness of Breath Cardiac: reports: No Symptoms Reported GI: reports: Diarrhea, Nausea, Poor Appetite, Poor Fluid Intake, Vomiting : reports: No Symptoms Reported Musculoskeletal: reports: Joint Pain Integumentary: reports: No Symptoms Reported Neuro: reports: No Symptoms reported Endocrine: reports: No Symptoms Reported Hematology: reports: No Symptoms Reported Psychiatric: reports: Anxious, Depressed Other Systems: Reviewed and Negative Patient History - Patient Medical History Hx Anemia: No Hx Asthma: No Hx Chronic Obstructive Pulmonary Disease (COPD): No Hx Cancer: No Hx Cardiac Disorders: No Hx Congestive Heart Failure: No Hx Hypertension: Yes Hx Hypercholesterolemia: No Hx Pacemaker: No HX Cerebrovascular Accident: No Hx Seizures: No Hx Dementia: No Hx Diabetes: No Hx Gastrointestinal Disorders: No Hx Liver Disease: Yes (hep c ) Hx Genitourinary Disorders: No Hx Sexually Transmitted Disorders: No Hx Renal Disease (ESRD): No Hx Thyroid Disease: No Hx Human Immunodeficiency Virus (HIV): No Hx Hepatitis C: Yes (TREATED, cleared virus) Hx Depression: Yes Hx Suicide Attempt: No Hx Bipolar Disorder: No Hx Schizophrenia: No Other Medical History: ANXIETY - Patient Surgical History Past Surgical History: No Hx Neurologic Surgery: No Hx Cataract Extraction: No Hx Cardiac Surgery: No Hx Lung Surgery: No Hx Breast Surgery: No Hx Breast Biopsy: No Hx Abdominal Surgery: No Hx Appendectomy: No Hx Cholecystectomy: No Hx Genitourinary Surgery: No Hx Section: No Hx Orthopedic Surgery: No Hx Hysterectomy: No Anesthesia Reaction: No - PPD History Previous Implant?: Yes Documented Results: Negative w/proof Implanted On Prior [facility] Admission?: Yes Date: 11/07/16 Results: 0 MM PPD to be Administered?: Yes - Smoking Cessation Smoking history: Current every day smoker Have you smoked in the past 12 months: Yes Aproximately how many cigarettes per day: 20 Cigars Per Day: 0 Hx Chewing Tobacco Use: No Initiated information on smoking cessation: Yes 'Breaking Loose' booklet given: 11/19/17 - Substance & Tx. History Hx Alcohol Use: Yes Hx Substance Use: Yes Substance Use Type: Alcohol, Heroin, Marijuana Hx Substance Use Treatment: Yes ([facility]) - Substances Abused HEROIN Route: Inhalation Frequency: Daily Amount used: 12 BAGS Age of first use: 19 Date of Last Use: 11/18/17 LIQUOR Route: Oral Frequency: Daily Amount used: FIFTH Age of first use: 66 Date of Last Use: 11/19/17 THC Route: Smoking Frequency: Daily Amount used: DIME Age of first use: 18 Date of Last Use: 10/19/17 Family Disease History - Family Disease History Family Disease History: Other: Father (NO CONTACT), Mother (htn ) Admission Physical Exam [facility] - Vital Signs Vital Signs: Vital Signs - 24 hr 11/19/17 14:23 Temperature 98.2 F Pulse Rate 85 Respiratory 20 Rate Blood Pressure 151/96 - Physical General Appearance: Yes: Disheveled, Mild Distress, Tremorous HEENTM: Yes: Normocephalic, Normal Voice, JACQUIE, Pharynx Normal, Nasal Congestion , Rhinorrhea, Other (MISSING TEETH) Respiratory: Yes: Chest Non-Tender, Lungs Clear, Normal Breath Sounds, No Respiratory Distress, No Accessory Muscle Use Neck: Yes: No masses,lesions,Nodules, Supple, Trachea in good position Breast: Yes: Breast Exam Deferred Cardiology: Yes: Regular Rhythm, Regular Rate, S1, S2 Abdominal: Yes: Normal Bowel Sounds, Non Tender, Soft Genitourinary: Yes: Within Normal Limits (NO C/O) Back: Yes: Normal Inspection Musculoskeletal: Yes: full range of Motion, Gait Steady Extremities: Yes: Normal Range of Motion, Non-Tender, Tremors 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, Fully Oriented, Alert, Motor Strength 5/5 Integumentary: Yes: Normal Color, Dry, Warm, Track Olea Lymphatic: Yes: Within Normal Limits - Diagnostic (1) Alcohol dependence with uncomplicated withdrawal Current Visit: No Status: Chronic (2) Nicotine dependence Current Visit: No Status: Acute Qualifiers: Nicotine product type: cigarettes Substance use status: in withdrawal Qualified Code(s): F17.213 - Nicotine dependence, cigarettes, with withdrawal (3) Opioid dependence with withdrawal Current Visit: No Status: Chronic (4) Hypertension Current Visit: No Status: Chronic Qualifiers: Hypertension type: essential hypertension Qualified Code(s): I10 - Essential (primary) hypertension (5) Hepatitis C Current Visit: No Status: Chronic Qualifiers: Viral hepatitis chronicity: chronic Hepatic coma status: without hepatic coma Qualified Code(s): B18.2 - Chronic viral hepatitis C Cleared for Admission [facility] - Detox or Rehab [facility] Level of Care: Medically Managed Detox Regimen/Protocol: Methadone/Librium Claeared for Rehab Admission: No [facility] Breath Alcohol Content Breath Alcohol Content: 0.055 Urine Drug Screen - Results Drug Screen Negative: No Urine Drug Screen Results: THC-Marijuana, OPI-Opiates, BZO-Benzodiazepines, MTD- Methadone
[2017-11-19] MEDS ORDERED: MELATONIN 5 MG TABLETS PO PRN (22:00)
[2017-11-19] MEDS ORDERED: guaiFENesin/D-METHORPHAN HB 10 ML UNIT-DOSE CUPS PO PRN (22:04)
[2017-11-19] MEDS ORDERED: MAGNESIUM HYDROX 2400MG/30ML ORAL SUSPENSION 30 ML CUP PO PRN (22:04)
[2017-11-19] MEDS ORDERED: P-EPHED 60MG/TRIPROLIDI 2.5MG TABLET PO PRN (22:04)
[2017-11-19] MEDS ORDERED: METHADONE HCL 10 MG TABLET (FOR DETOX USE ONLY) PO ONE ×2 (22:04→23:00)
[2017-11-19] MEDS ORDERED: chlordiazePOXIDE HCL 25 MG CAPSULE PO PRN (22:04)
[2017-11-19] MEDS ORDERED: LOPERAMIDE HCL 2 MG CAPSULE PO PRN (22:04)
[2017-11-19] MEDS ORDERED: MAG HYDROX/AL HYDROX/SIMETH 30 ML UNIT-DOSE CUP PO PRN (22:04)
[2017-11-19] MEDS ORDERED: MENTHOL/PHENOL 1 EACH UD MM PRN (22:04)
[2017-11-19] MEDS ORDERED: IBUPROFEN 400 MG TABLET (FP) PO PRN (22:04)
[2017-11-19] MEDS ORDERED: NICOTINE POLACRILEX 2 MG GUM BC PRN (22:04)
[2017-11-19] MEDS ORDERED: MAGNESIUM CITRATE 300 ML BOTTLE PO PRN (22:04)
[2017-11-19] MEDS ORDERED: ACETAMINOPHEN 325 MG TABLET (FP) PO PRN (22:04)
[2017-11-19] MEDS: chlordiazePOXIDE HCL 25 MG CAPSULE PO SCH (23:04)
[2017-11-20 02:07] LABS: URINE APPEARANCE TURBID; URINE BLOOD NEGATIVE (NEGATIVE); URINE COLOR AMBER; URINE GLUCOSE (UA) NEGATIVE (NEGATIVE); URINE KETONE NEGATIVE (NEGATIVE); URINE LEUK ESTERASE NEGATIVE (NEGATIVE); URINE NITRITE NEGATIVE (NEGATIVE)
[2017-11-20 02:20] LABS: URINE PROTEIN 1+ (NEGATIVE)
[2017-11-20 02:34] LABS: URINE MUCUS MANY
[2017-11-20] MEDS: chlordiazePOXIDE HCL 25 MG CAPSULE PO SCH ×4 (05:37→22:11)
--- NOTE | 2017-11-20 09:33 | EKG ---
Test Reason : Blood Pressure : / mmHG Vent. Rate : 072 BPM Atrial Rate : 072 BPM P-R Int : 174 ms QRS Dur : 084 ms QT Int : 396 ms P-R-T Axes : 084 071 065 degrees QTc Int : 433 ms NORMAL SINUS RHYTHM NORMAL ECG WHEN COMPARED WITH ECG OF 01-OCT-2017 15:34, NONSPECIFIC T WAVE ABNORMALITY NO LONGER EVIDENT IN INFERIOR LEADS QT HAS SHORTENED Confirmed by TYRON BANERJEE, RAO ([id number]) on 11/20/2017 9:33:29 AM Referred By: Confirmed By:RAO ACKERMAN MD
[2017-11-20 09:52] LABS: HEMATOCRIT 43.9 % (35.4-49); HEMOGLOBIN 14.6 GM/dL (11.7-16.9); MCH 30.8 pg (25.7-33.7); MCHC 33.1 g/dl (32.0-35.9); MEAN CELL VOLUME 93.1 fl (80-96); MEAN PLT VOLUME 9.8 fl (7.5-11.1); PLATELET COUNT 121 K/MM3 (134-434); RBC 4.72 M/mm3 (4.00-5.60); WHITE BLOOD COUNT 4.2 K/mm3 (4.0-10.0)
[2017-11-20 10:00] LABS: CHLORIDE 104 mmol/L (98-107); POTASSIUM 3.6 mmol/L (3.5-5.1); SODIUM 141 mmol/L (136-145)
[2017-11-20] MEDS ORDERED: METHADONE HCL 10 MG TABLET (FOR DETOX USE ONLY) PO SCH (10:00)
[2017-11-20] MEDS: ENALAPRIL MALEATE 10 MG TABLET (FP) PO SCH (10:08)
[2017-11-20] MEDS: HYDROCHLOROTHIAZIDE 25 MG TABLET (FP) PO SCH (10:08)
[2017-11-20] MEDS: ASPIRIN 81 MG CHEWABLE TABLETS PO SCH (10:08)
[2017-11-20] MEDS: NICOTINE 21 MG/24 HOURS TOPICAL PATCH TD SCH (10:09)
[2017-11-20] MEDS: PRENATAL VITAMINS W/ FOLIC ACID TABLET (FP) PO SCH (10:09)
[2017-11-20 10:19] LABS: ALBUMIN 3.3 g/dl (3.4-5.0); ALK PHOS 32 U/L (45-117); ANION GAP 6 (8-16); BILIRUBIN,TOTAL 0.7 mg/dL (0.2-1.0); BLOOD UREA NITROGEN 11 mg/dL (7-18); CALCIUM 8.7 mg/dL (8.5-10.1); CO2 31 mmol/L (21-32); CREATININE 0.7 mg/dL (0.7-1.3); GLUCOSE,RANDOM 102 mg/dL (74-106); SGOT/AST 39 U/L (15-37); SGPT/ALT 43 U/L (12-78); TOT PROT 6.7 g/dl (6.4-8.2)
--- NOTE | 2017-11-20 11:23 | PN ---
S CIWA - CIWA Score Nausea/Vomitin Muscle Tremors: 3 Anxiety: 3 Agitation: 2 Paroxysmal Sweats: 1-Minimal Palms Moist Orientation: 0-Oriented Tacttile Disturbances: 1-Very Mild Itch/Numbness Auditory Disturbances: 1-Very Mild Visual Disturbances: 0-None Headache: 2-Mild CIWA-Ar Total Score: 16 BHS COWS - Scale Resting Pulse: 1= [place] 81-100 Sweatin= Chills/Flushing Restless Observation: 3= Extraneous Movement Pupil Size: 1= Pupils >than Normal Bone or Joint Aches: 2= Severe Diffuse Aches Runny Nose/ Eye Tearin= Runny Nose/Eyes GI Upset > 30mins: 2= Nausea/Diarrhea Tremor Observation of Outstretched Hands: 2= Slight Tremor Visible Yawning Observation: 1= 1-2x During Session Anxiety or Irritability: 2=Irritable/Anxious Goose Flesh Skin: 0=Smooth Skin COWS Score: 17 S Progress Note (SOAP) Subjective: ALERT,IRRITABLE,ANXIOUS,INTERRUPTED SLEEP,TREMOR,PAIN IN THE BODY AND BACK Objective: 11/20/17 11:20 Vital Signs Temperature 97.7 F 11/20/17 09:59 Pulse Rate 85 11/20/17 09:59 Respiratory Rate 18 11/20/17 09:59 Blood Pressure 127/83 11/20/17 09:59 O2 Sat by Pulse Oximetry (%) EKG NSR,NORMAL ECG Laboratory Last Values WBC 4.2 K/mm3 (4.0-10.0) 11/20/17 08:00 RBC 4.72 M/mm3 (4.00-5.60) 11/20/17 08:00 Hgb 14.6 GM/dL (11.7-16.9) D 11/20/17 08:00 Hct 43.9 % (35.4-49) D 11/20/17 08:00 MCV 93.1 fl (80-96) 11/20/17 08:00 MCH 30.8 pg (25.7-33.7) 11/20/17 08:00 MCHC 33.1 g/dl (32.0-35.9) 11/20/17 08:00 RDW 14.0 % (11.9-15.9) 11/20/17 08:00 Plt Count 121 K/MM3 (134-434) L 11/20/17 08:00 MPV 9.8 fl (7.5-11.1) 11/20/17 08:00 Sodium 141 mmol/L (136-145) 11/20/17 08:00 Potassium 3.6 mmol/L (3.5-5.1) 11/20/17 08:00 Chloride 104 mmol/L (98-107) 11/20/17 08:00 Carbon Dioxide 31 mmol/L (21-32) 11/20/17 08:00 Anion Gap 6 (8-16) L 11/20/17 08:00 BUN 11 mg/dL (7-18) D 11/20/17 08:00 Creatinine 0.7 mg/dL (0.7-1.3) 11/20/17 08:00 Creat Clearance w eGFR > 60 (>60) 11/20/17 08:00 Random Glucose 102 mg/dL (74-106) 11/20/17 08:00 Calcium 8.7 mg/dL (8.5-10.1) 11/20/17 08:00 Total Bilirubin 0.7 mg/dL (0.2-1.0) D 11/20/17 08:00 AST 39 U/L (15-37) H D 11/20/17 08:00 ALT 43 U/L (12-78) D 11/20/17 08:00 Alkaline Phosphatase 32 U/L (45-117) L 11/20/17 08:00 Total Protein 6.7 g/dl (6.4-8.2) 11/20/17 08:00 Albumin 3.3 g/dl (3.4-5.0) L D 11/20/17 08:00 Urine Color [place] 11/20/17 00:05 Urine Appearance Turbid 11/20/17 00:05 Urine pH 5.0 (5.0-8.0) 11/20/17 00:05 Ur Specific [place] 1.031 (1.001-1.035) 11/20/17 00:05 Urine Protein 1+ (NEGATIVE) H 11/20/17 00:05 Urine Glucose (UA) Negative (NEGATIVE) 11/20/17 00:05 Urine Ketones Negative (NEGATIVE) 11/20/17 00:05 Urine Blood Negative (NEGATIVE) 11/20/17 00:05 Urine Nitrite Negative (NEGATIVE) 11/20/17 00:05 Urine Bilirubin 2.0 (<2.0 mg/dL) 11/20/17 00:05 Urine Urobilinogen 2.0 mg/dL (0.2-1.0) 11/20/17 00:05 Ur Leukocyte Esterase Negative (NEGATIVE) 11/20/17 00:05 Urine WBC (Auto) 77 /hpf (3-5) 11/20/17 00:05 Urine RBC (Auto) 1 /hpf (0-3) 11/20/17 00:05 Urine Mucus Many 11/20/17 00:05 11/20/17 11:21 RPR PENDING Assessment: 11/20/17 11:21 WITHDRAWAL SYMPTOM Plan: CONTINUE DETOX,ENCOURAGE ORAL FLUID,REPEAT UA R/O UTI
--- NOTE | 2017-11-20 12:00 | CONSULT ---
[facility] Psychiatric Consult - Data Date of interview: 11/20/17 Admission source: [facility] Identifying data: Pt. is a 67 year old male, , father of three, unemployed, living in a one bedroom apartment that was provided by the [facility], and is currently receiving public assistance. This is one of multiple admissions for patient. Pt. admitted to for alcohol, cannabis, and opioid dependence. Substance Abuse History: Following information confirmed with Mr. Oconnell: - Smoking Cessation. Smoking history: Current every day smoker. Have you smoked in the past 12 months: Yes. Aproximately how many cigarettes per day: 20. Cigars Per Day: 0. Hx Chewing Tobacco Use: No. Initiated information on smoking cessation: Yes. 'Breaking Loose' booklet given: 11/19/17. - Substance & Tx. History. Hx Alcohol Use: Yes. Hx Substance Use: Yes. Substance Use Type : Alcohol, Heroin, Marijuana. Hx Substance Use Treatment: Yes ([facility]). - Substances Abused. HEROIN. Route: Inhalation. Frequency: Daily. Amount used: 12 BAGS. Age of first use: 19. Date of Last Use: 11/18/17. LIQUOR. Route: Oral. Frequency: Daily. Amount used: FIFTH. Age of first use: 66. Date of Last Use: 11/19/17. THC. Route: Smoking. Frequency: Daily. Amount used: DIME. Age of first use: 18. Date of Last Use: 10/19/17 Medical History: Hypertension, Hep C Psychiatric History: Pt. denies h/o psychiatric hospitalizations, outpatient care and suicide attempt. Physical/Sexual Abuse/Trauma History: Denies. Mental Status Exam - Mental Status Exam Alert and Oriented to: Time, Place, Person Cognitive Function: Good Patient Appearance: Well Groomed Mood: Hopeful Affect: Appropriate Patient Behavior: Appropriate, Cooperative Speech Pattern: Clear, Appropriate Voice Loudness: Normal Thought Process: Goal Oriented Thought Disorder: Not Present Hallucinations: Denies Suicidal Ideation: Denies Homicidal Ideation: Denies Insight/Judgement: Poor Sleep: Poorly Appetite: Fair Muscle strength/Tone: Normal Gait/Station: Normal Psychiatric Findings - Problem List ([place] 1, 2,3) (1) Nicotine dependence Current Visit: Yes Status: Acute Qualifiers: Nicotine product type: cigarettes Substance use status: in withdrawal Qualified Code(s): F17.213 - Nicotine dependence, cigarettes, with withdrawal (2) Alcohol dependence with uncomplicated withdrawal Current Visit: Yes Status: Chronic (3) Opioid dependence with withdrawal Current Visit: Yes Status: Chronic (4) Insomnia Current Visit: Yes Status: Acute Qualifiers: Insomnia type: unspecified Qualified Code(s): G47.00 - Insomnia, unspecified (5) Cannabis dependence Current Visit: Yes Status: Chronic - Initial Treatment Plan Initial Treatment Plan: Psychoeducation provided. Detoxification provided. Benadryl 25mg qhs ordered for insomnia. Benefits and side effects discussed. Verbal consent given. Will continue to monitor.
[2017-11-20 15:08] LABS: URINE APPEARANCE CLEAR; URINE BILIRUBIN NEGATIVE (<2.0 mg/dL); URINE BLOOD NEGATIVE (NEGATIVE); URINE GLUCOSE (UA) NEGATIVE (NEGATIVE); URINE KETONE NEGATIVE (NEGATIVE); URINE LEUK ESTERASE NEGATIVE (NEGATIVE); URINE NITRITE NEGATIVE (NEGATIVE); URINE PROTEIN NEGATIVE (NEGATIVE); URINE UROBILINOGEN 4.0 E.U/dl mg/dL (0.2-1.0)
[2017-11-20 15:11] LABS: URINE COLOR DK YELLOW
[2017-11-20] MEDS: THIAMINE HCL 100 MG TABLET (FP) PO SCH (22:11)
[2017-11-20] MEDS: diphenhydrAMINE HCL 25 MG CAPSULE (FP) PO PRN (22:12)
[2017-11-21] MEDS: chlordiazePOXIDE HCL 25 MG CAPSULE PO SCH ×3 (05:50→17:38)
[2017-11-21] MEDS: METHADONE HCL 5 MG TABLET (FOR DETOX USE ONLY) PO SCH (10:51)
[2017-11-21] MEDS: ASPIRIN 81 MG CHEWABLE TABLETS PO SCH (10:51)
[2017-11-21] MEDS: PRENATAL VITAMINS W/ FOLIC ACID TABLET (FP) PO SCH (10:51)
[2017-11-21] MEDS: ENALAPRIL MALEATE 10 MG TABLET (FP) PO SCH (10:51)
[2017-11-21] MEDS: NICOTINE 21 MG/24 HOURS TOPICAL PATCH TD SCH (10:52)
[2017-11-21] MEDS: HYDROCHLOROTHIAZIDE 25 MG TABLET (FP) PO SCH (10:54)
--- NOTE | 2017-11-21 14:18 | PN ---
S CIWA - CIWA Score Nausea/Vomitin Muscle Tremors: 3 Anxiety: 3 Agitation: 3 Paroxysmal Sweats: 1-Minimal Palms Moist Orientation: 0-Oriented Tacttile Disturbances: 1-Very Mild Itch/Numbness Auditory Disturbances: 1-Very Mild Visual Disturbances: 0-None Headache: 2-Mild CIWA-Ar Total Score: 17 BHS COWS - Scale Resting Pulse: 0= [place] 80 or Below Sweatin= Chills/Flushing Restless Observation: 3= Extraneous Movement Pupil Size: 1= Pupils >than Normal Bone or Joint Aches: 2= Severe Diffuse Aches Runny Nose/ Eye Tearin= Runny Nose/Eyes GI Upset > 30mins: 2= Nausea/Diarrhea Tremor Observation of Outstretched Hands: 2= Slight Tremor Visible Yawning Observation: 1= 1-2x During Session Anxiety or Irritability: 2=Irritable/Anxious Goose Flesh Skin: 0=Smooth Skin COWS Score: 16 S Progress Note (SOAP) Subjective: ALERT,IRRITABLE,ANXIOUS,INTERRUPTED SLEEP,TREMOR,PAIN IN THE BODY AND BACK Objective: 11/21/17 14:16 Vital Signs Temperature 97.5 F L 11/21/17 10:43 Pulse Rate 65 11/21/17 10:43 Respiratory Rate 18 11/21/17 10:43 Blood Pressure 123/79 11/21/17 10:43 O2 Sat by Pulse Oximetry (%) Laboratory Last Values WBC 4.2 K/mm3 (4.0-10.0) 11/20/17 08:00 RBC 4.72 M/mm3 (4.00-5.60) 11/20/17 08:00 Hgb 14.6 GM/dL (11.7-16.9) D 11/20/17 08:00 Hct 43.9 % (35.4-49) D 11/20/17 08:00 MCV 93.1 fl (80-96) 11/20/17 08:00 MCH 30.8 pg (25.7-33.7) 11/20/17 08:00 MCHC 33.1 g/dl (32.0-35.9) 11/20/17 08:00 RDW 14.0 % (11.9-15.9) 11/20/17 08:00 Plt Count 121 K/MM3 (134-434) L 11/20/17 08:00 MPV 9.8 fl (7.5-11.1) 11/20/17 08:00 Sodium 141 mmol/L (136-145) 11/20/17 08:00 Potassium 3.6 mmol/L (3.5-5.1) 11/20/17 08:00 Chloride 104 mmol/L (98-107) 11/20/17 08:00 Carbon Dioxide 31 mmol/L (21-32) 11/20/17 08:00 Anion Gap 6 (8-16) L 11/20/17 08:00 BUN 11 mg/dL (7-18) D 11/20/17 08:00 Creatinine 0.7 mg/dL (0.7-1.3) 11/20/17 08:00 Creat Clearance w eGFR > 60 (>60) 11/20/17 08:00 Random Glucose 102 mg/dL (74-106) 11/20/17 08:00 Calcium 8.7 mg/dL (8.5-10.1) 11/20/17 08:00 Total Bilirubin 0.7 mg/dL (0.2-1.0) D 11/20/17 08:00 AST 39 U/L (15-37) H D 11/20/17 08:00 ALT 43 U/L (12-78) D 11/20/17 08:00 Alkaline Phosphatase 32 U/L (45-117) L 11/20/17 08:00 Total Protein 6.7 g/dl (6.4-8.2) 11/20/17 08:00 Albumin 3.3 g/dl (3.4-5.0) L D 11/20/17 08:00 Urine Color Dk yellow 11/20/17 12:15 Urine Appearance Clear 11/20/17 12:15 Urine pH 7.0 (5.0-8.0) D 11/20/17 12:15 Ur Specific [place] 1.025 (1.001-1.035) 11/20/17 12:15 Urine Protein Negative (NEGATIVE) 11/20/17 12:15 Urine Glucose (UA) Negative (NEGATIVE) 11/20/17 12:15 Urine Ketones Negative (NEGATIVE) 11/20/17 12:15 Urine Blood Negative (NEGATIVE) 11/20/17 12:15 Urine Nitrite Negative (NEGATIVE) 11/20/17 12:15 Urine Bilirubin Negative (<2.0 mg/dL) 11/20/17 12:15 Urine Urobilinogen 4.0 e.u/dl mg/dL (0.2-1.0) 11/20/17 12:15 Ur Leukocyte Esterase Negative (NEGATIVE) 11/20/17 12:15 Urine WBC (Auto) 77 /hpf (3-5) 11/20/17 00:05 Urine RBC (Auto) 1 /hpf (0-3) 11/20/17 00:05 Urine Mucus Many 11/20/17 00:05 RPR Titer Nonreactive (NONREACTIVE) 11/20/17 08:00 11/21/17 14:17 Laboratory Results - last 24 hr 11/20/17 11/20/17 08:00 12:15 Urine Color Dk yellow Urine Appearance Clear Urine pH 7.0 D Ur Specific [place] 1.025 Urine Protein Negative Urine Glucose (UA) Negative Urine Ketones Negative Urine Blood Negative Urine Nitrite Negative Urine Bilirubin Negative Urine Urobilinogen 4.0 e.u/dl Ur Leukocyte Esterase Negative RPR Titer Nonreactive Assessment: 11/21/17 14:18 WITHDRAWAL SYMPTOM Plan: CONTINUE DETOX
[2017-11-21] MEDS: THIAMINE HCL 100 MG TABLET (FP) PO SCH (22:12)
[2017-11-21] MEDS: chlordiazePOXIDE 5 MG CAPSULE PO SCH (22:12)
[2017-11-21] MEDS: diphenhydrAMINE HCL 25 MG CAPSULE (FP) PO PRN (22:15)
[2017-11-22] MEDS: chlordiazePOXIDE 5 MG CAPSULE PO SCH ×3 (05:35→17:49)
[2017-11-22] MEDS: METHADONE HCL 5 MG TABLET (FOR DETOX USE ONLY) PO SCH (10:54)
[2017-11-22] MEDS: ASPIRIN 81 MG CHEWABLE TABLETS PO SCH (10:54)
[2017-11-22] MEDS: PRENATAL VITAMINS W/ FOLIC ACID TABLET (FP) PO SCH (10:54)
[2017-11-22] MEDS: ENALAPRIL MALEATE 10 MG TABLET (FP) PO SCH (10:55)
[2017-11-22] MEDS: HYDROCHLOROTHIAZIDE 25 MG TABLET (FP) PO SCH (10:55)
[2017-11-22] MEDS: NICOTINE 21 MG/24 HOURS TOPICAL PATCH TD SCH (10:55)
--- NOTE | 2017-11-22 11:59 | PN ---
BHS Progress Note (SOAP) Subjective: trouble sleeping restlessness sweat tremor anxiety body ache joint pain Objective: 11/22/17 11:58 Vital Signs Temperature 97.7 F 11/22/17 06:51 Pulse Rate 68 11/22/17 06:51 Respiratory Rate 18 11/22/17 06:51 Blood Pressure 116/78 11/22/17 06:51 O2 Sat by Pulse Oximetry (%) Laboratory Last Values WBC 4.2 K/mm3 (4.0-10.0) 11/20/17 08:00 RBC 4.72 M/mm3 (4.00-5.60) 11/20/17 08:00 Hgb 14.6 GM/dL (11.7-16.9) D 11/20/17 08:00 Hct 43.9 % (35.4-49) D 11/20/17 08:00 MCV 93.1 fl (80-96) 11/20/17 08:00 MCH 30.8 pg (25.7-33.7) 11/20/17 08:00 MCHC 33.1 g/dl (32.0-35.9) 11/20/17 08:00 RDW 14.0 % (11.9-15.9) 11/20/17 08:00 Plt Count 121 K/MM3 (134-434) L 11/20/17 08:00 MPV 9.8 fl (7.5-11.1) 11/20/17 08:00 Sodium 141 mmol/L (136-145) 11/20/17 08:00 Potassium 3.6 mmol/L (3.5-5.1) 11/20/17 08:00 Chloride 104 mmol/L (98-107) 11/20/17 08:00 Carbon Dioxide 31 mmol/L (21-32) 11/20/17 08:00 Anion Gap 6 (8-16) L 11/20/17 08:00 BUN 11 mg/dL (7-18) D 11/20/17 08:00 Creatinine 0.7 mg/dL (0.7-1.3) 11/20/17 08:00 Creat Clearance w eGFR > 60 (>60) 11/20/17 08:00 Random Glucose 102 mg/dL (74-106) 11/20/17 08:00 Calcium 8.7 mg/dL (8.5-10.1) 11/20/17 08:00 Total Bilirubin 0.7 mg/dL (0.2-1.0) D 11/20/17 08:00 AST 39 U/L (15-37) H D 11/20/17 08:00 ALT 43 U/L (12-78) D 11/20/17 08:00 Alkaline Phosphatase 32 U/L (45-117) L 11/20/17 08:00 Total Protein 6.7 g/dl (6.4-8.2) 11/20/17 08:00 Albumin 3.3 g/dl (3.4-5.0) L D 11/20/17 08:00 Urine Color Dk yellow 11/20/17 12:15 Urine Appearance Clear 11/20/17 12:15 Urine pH 7.0 (5.0-8.0) D 11/20/17 12:15 Ur Specific [place] 1.025 (1.001-1.035) 11/20/17 12:15 Urine Protein Negative (NEGATIVE) 11/20/17 12:15 Urine Glucose (UA) Negative (NEGATIVE) 11/20/17 12:15 Urine Ketones Negative (NEGATIVE) 11/20/17 12:15 Urine Blood Negative (NEGATIVE) 11/20/17 12:15 Urine Nitrite Negative (NEGATIVE) 11/20/17 12:15 Urine Bilirubin Negative (<2.0 mg/dL) 11/20/17 12:15 Urine Urobilinogen 4.0 e.u/dl mg/dL (0.2-1.0) 11/20/17 12:15 Ur Leukocyte Esterase Negative (NEGATIVE) 11/20/17 12:15 Urine WBC (Auto) 77 /hpf (3-5) 11/20/17 00:05 Urine RBC (Auto) 1 /hpf (0-3) 11/20/17 00:05 Urine Mucus Many 11/20/17 00:05 RPR Titer Nonreactive (NONREACTIVE) 11/20/17 08:00 lab noted Assessment: 11/22/17 11:58 withdrawal sx Plan: continue detox
[2017-11-22] MEDS: THIAMINE HCL 100 MG TABLET (FP) PO SCH (22:36)
[2017-11-22] MEDS: chlordiazePOXIDE HCL 10 MG CAPSULE PO SCH (22:36)
[2017-11-22] MEDS: diphenhydrAMINE HCL 25 MG CAPSULE (FP) PO PRN (22:38)
[2017-11-23] MEDS: chlordiazePOXIDE HCL 10 MG CAPSULE PO SCH ×3 (05:59→17:45)
[2017-11-23] MEDS ORDERED: METHADONE HCL 10 MG TABLET (FOR DETOX USE ONLY) PO SCH (10:00)
[2017-11-23] MEDS: ASPIRIN 81 MG CHEWABLE TABLETS PO SCH (10:14)
[2017-11-23] MEDS: NICOTINE 21 MG/24 HOURS TOPICAL PATCH TD SCH (10:14)
[2017-11-23] MEDS: ENALAPRIL MALEATE 10 MG TABLET (FP) PO SCH (10:14)
[2017-11-23] MEDS: HYDROCHLOROTHIAZIDE 25 MG TABLET (FP) PO SCH (10:14)
[2017-11-23] MEDS: PRENATAL VITAMINS W/ FOLIC ACID TABLET (FP) PO SCH (10:14)
--- NOTE | 2017-11-23 11:05 | PN ---
S Progress Note (SOAP) Subjective: ALERT,IRRITABLE,ANXIOUS,INTERRUPTED SLEEP Objective: 11/23/17 11:05 Vital Signs Temperature 98.6 F 11/23/17 10:15 Pulse Rate 67 11/23/17 10:15 Respiratory Rate 20 11/23/17 10:15 Blood Pressure 162/88 11/23/17 10:15 O2 Sat by Pulse Oximetry (%) Assessment: 11/23/17 11:05 WITHDRAWAL SYMPTOM Plan: CONTINUE DETOX,DISCHARGE IN AM
[2017-11-23] MEDS: THIAMINE HCL 100 MG TABLET (FP) PO SCH (22:29)
[2017-11-23] MEDS: diphenhydrAMINE HCL 25 MG CAPSULE (FP) PO PRN (22:29)
[2017-11-24] MEDS ORDERED: METHADONE HCL 5 MG TABLET (FOR DETOX USE ONLY) PO SCH (06:00)
--- NOTE | 2017-11-24 08:35 | PN ---
S Progress Note (SOAP) Subjective: ALERT,NO COMPLAINT Objective: 11/24/17 08:33 Vital Signs Temperature 67.7 F L 11/24/17 06:30 Pulse Rate 66 11/24/17 06:30 Respiratory Rate 18 11/24/17 06:30 Blood Pressure 119/68 11/24/17 06:30 O2 Sat by Pulse Oximetry (%) Assessment: 11/24/17 08:34 DETOX COMPLETED,NO WITHDRAWAL SYMPTOM Plan: [place] TODAY,FOLLOW UP WITH AFTER CARE PROGRAM ARRANGEMENT
--- NOTE | 2017-11-24 08:41 | DS ---
[facility] Detox Discharge Summary Admission Date: 11/19/17 Discharge Date: 11/24/17 - History Present History: Alcohol Dependence, Opioid Dependence Additional Comments: FOLLOW UP WITH AFTER CARE PROGRAM ARRANGEMENT Pertinent Past History: HEPATITIS C HYPERTENSION NICOTINE DEPENDENCE - Physical Exam Results Vital Signs: Vital Signs Temperature 67.7 F L 11/24/17 06:30 Pulse Rate 66 11/24/17 06:30 Respiratory Rate 18 11/24/17 06:30 Blood Pressure 119/68 11/24/17 06:30 O2 Sat by Pulse Oximetry (%) Pertinent Admission Physical Exam Findings: WITHDRAWAL SIGNS AND SYMPTOM Vital Signs Temperature 67.7 F L 11/24/17 06:30 Pulse Rate 66 11/24/17 06:30 Respiratory Rate 18 11/24/17 06:30 Blood Pressure 119/68 11/24/17 06:30 O2 Sat by Pulse Oximetry (%) Laboratory Last Values WBC 4.2 K/mm3 (4.0-10.0) 11/20/17 08:00 RBC 4.72 M/mm3 (4.00-5.60) 11/20/17 08:00 Hgb 14.6 GM/dL (11.7-16.9) D 11/20/17 08:00 Hct 43.9 % (35.4-49) D 11/20/17 08:00 MCV 93.1 fl (80-96) 11/20/17 08:00 MCH 30.8 pg (25.7-33.7) 11/20/17 08:00 MCHC 33.1 g/dl (32.0-35.9) 11/20/17 08:00 RDW 14.0 % (11.9-15.9) 11/20/17 08:00 Plt Count 121 K/MM3 (134-434) L 11/20/17 08:00 MPV 9.8 fl (7.5-11.1) 11/20/17 08:00 Sodium 141 mmol/L (136-145) 11/20/17 08:00 Potassium 3.6 mmol/L (3.5-5.1) 11/20/17 08:00 Chloride 104 mmol/L (98-107) 11/20/17 08:00 Carbon Dioxide 31 mmol/L (21-32) 11/20/17 08:00 Anion Gap 6 (8-16) L 11/20/17 08:00 BUN 11 mg/dL (7-18) D 11/20/17 08:00 Creatinine 0.7 mg/dL (0.7-1.3) 11/20/17 08:00 Creat Clearance w eGFR > 60 (>60) 11/20/17 08:00 Random Glucose 102 mg/dL (74-106) 11/20/17 08:00 Calcium 8.7 mg/dL (8.5-10.1) 11/20/17 08:00 Total Bilirubin 0.7 mg/dL (0.2-1.0) D 11/20/17 08:00 AST 39 U/L (15-37) H D 11/20/17 08:00 ALT 43 U/L (12-78) D 11/20/17 08:00 Alkaline Phosphatase 32 U/L (45-117) L 11/20/17 08:00 Total Protein 6.7 g/dl (6.4-8.2) 11/20/17 08:00 Albumin 3.3 g/dl (3.4-5.0) L D 11/20/17 08:00 Urine Color Dk yellow 11/20/17 12:15 Urine Appearance Clear 11/20/17 12:15 Urine pH 7.0 (5.0-8.0) D 11/20/17 12:15 Ur Specific [place] 1.025 (1.001-1.035) 11/20/17 12:15 Urine Protein Negative (NEGATIVE) 11/20/17 12:15 Urine Glucose (UA) Negative (NEGATIVE) 11/20/17 12:15 Urine Ketones Negative (NEGATIVE) 11/20/17 12:15 Urine Blood Negative (NEGATIVE) 11/20/17 12:15 Urine Nitrite Negative (NEGATIVE) 11/20/17 12:15 Urine Bilirubin Negative (<2.0 mg/dL) 11/20/17 12:15 Urine Urobilinogen 4.0 e.u/dl mg/dL (0.2-1.0) 11/20/17 12:15 Ur Leukocyte Esterase Negative (NEGATIVE) 11/20/17 12:15 Urine WBC (Auto) 77 /hpf (3-5) 11/20/17 00:05 Urine RBC (Auto) 1 /hpf (0-3) 11/20/17 00:05 Urine Mucus Many 11/20/17 00:05 RPR Titer Nonreactive (NONREACTIVE) 11/20/17 08:00 Laboratory Tests 11/20/17 11/20/17 11/20/17 00:05 08:00 08:00 WBC 4.2 RBC 4.72 Hgb 14.6 D Hct 43.9 D MCV 93.1 MCH 30.8 MCHC 33.1 RDW 14.0 Plt Count 121 L MPV 9.8 Sodium 141 Potassium 3.6 Chloride 104 Carbon Dioxide 31 Anion Gap 6 L BUN 11 D Creatinine 0.7 Creat Clearance w eGFR > 60 Random Glucose 102 Calcium 8.7 Total Bilirubin 0.7 D AST 39 H D ALT 43 D Alkaline Phosphatase 32 L Total Protein 6.7 Albumin 3.3 L D Urine Color Janeth Urine Appearance Turbid Urine pH 5.0 Ur Specific [place] 1.031 Urine Protein 1+ H Urine Glucose (UA) Negative Urine Ketones Negative Urine Blood Negative Urine Nitrite Negative Urine Bilirubin 2.0 Urine Urobilinogen 2.0 Ur Leukocyte Esterase Negative Urine WBC (Auto) 77 Urine RBC (Auto) 1 Urine Mucus Many RPR Titer 11/20/17 11/20/17 08:00 12:15 WBC RBC Hgb Hct MCV MCH MCHC RDW Plt Count MPV Sodium Potassium Chloride Carbon Dioxide Anion Gap BUN Creatinine Creat Clearance w eGFR Random Glucose Calcium Total Bilirubin AST ALT Alkaline Phosphatase Total Protein Albumin Urine Color Dk yellow Urine Appearance Clear Urine pH 7.0 D Ur Specific [place] 1.025 Urine Protein Negative Urine Glucose (UA) Negative Urine Ketones Negative Urine Blood Negative Urine Nitrite Negative Urine Bilirubin Negative Urine Urobilinogen 4.0 e.u/dl Ur Leukocyte Esterase Negative Urine WBC (Auto) Urine RBC (Auto) Urine Mucus RPR Titer Nonreactive - Treatment Hospital Course: Detox Protocol Followed, Detoxed Safely, Responded well, Discharged Condition Good Patient has Accepted a Rehab Referral to: DECLINED - Medication Discharge Medications: Ambulatory Orders Aspirin [ASA -] 81 mg PO DAILY #30 tab.chew 10/06/17 Enalapril Maleate [Vasotec -] 10 mg PO DAILY #30 tablet 10/06/17 Hydrochlorothiazide [Hctz -] 25 mg PO DAILY #30 tablet 10/06/17 - Diagnosis (1) Opioid dependence with withdrawal Current Visit: Yes Status: Chronic (2) Alcohol dependence with uncomplicated withdrawal Current Visit: Yes Status: Chronic (3) Hepatitis C Current Visit: No Status: Chronic Qualifiers: Viral hepatitis chronicity: chronic Hepatic coma status: without hepatic coma Qualified Code(s): B18.2 - Chronic viral hepatitis C (4) Hypertension Current Visit: No Status: Chronic Qualifiers: Hypertension type: essential hypertension Qualified Code(s): I10 - Essential (primary) hypertension - AMA Did Patient Leave Against Medical Advice: No
[2017-11-24] MEDS: ASPIRIN 81 MG CHEWABLE TABLETS PO SCH (09:08)
[2017-11-24] MEDS: PRENATAL VITAMINS W/ FOLIC ACID TABLET (FP) PO SCH (09:08)
[2017-11-24] MEDS: ENALAPRIL MALEATE 10 MG TABLET (FP) PO SCH (09:09)
[2017-11-24 10:12] VITALS: BP 143/92; PULSE 69; TEMP 97.5
== END 2017-11-24 09:40 | disposition home or self-care (01) | DRG 773 ==
LOC: YASAS 10:57 → Y6N 21:10
PROVIDERS: ADMIT Internal Medicine; ATTEND Internal Medicine
PROC: HZ2ZZZZ Detoxification Services for Substance Abuse Treatment (ICD-10-PCS; principal; 2017-11-19)
DX: F11.23 Opioid dependence with withdrawal (principal); F10.230 Alcohol dependence with withdrawal, uncomplicated; F12.20 Cannabis dependence, uncomplicated; F17.210 Nicotine dependence, cigarettes, uncomplicated; F32.9 Major depressive disorder, single episode, unspecified; F41.9 Anxiety disorder, unspecified; I10 Essential (primary) hypertension; B18.2 Chronic viral hepatitis C
CPT/HCPCS: 36415; 80053; 81003; 81015; 85027; 86593; 93005; 93010

== ENCOUNTER 2018-01-20 10:53 | Inpatient (IN) | payer OTHER ==
[2018-01-20 11:25] VITALS: BMI 25.8
--- NOTE | 2018-01-20 12:28 | HP ---
COWS - Scale Resting Pulse: 0= [place] 80 or Below Sweatin= Chills/Flushing Restless Observation: 1= Difficult to Sit Still Pupil Size: 1= Pupils >than Normal Bone or Joint Aches: 2= Severe Diffuse Aches Runny Nose/ Eye Tearin= Runny Nose/Eyes GI Upset > 30mins: 2= Nausea/Diarrhea Tremor Observation: 2= Slight Tremor Visible Yawning Observation: 2= >3x During Session Anxiety or Irritability: 2=Irritable/Anxious Goose Flesh Skin: 0=Smooth Skin COWS Score: 15 CIWA Score - CIWA Score Nausea/Vomitin-Mild Nausea/No Vomiting Muscle Tremors: 4-Moderate,w/Arms Extend Anxiety: 4-Mod. Anxious/Guarded Agitation: 4-Moderately Restless Paroxysmal Sweats: 1-Minimal Palms Moist Orientation: 0-Oriented Tacttile Disturbances: 0-None Auditory Disturbances: 0-None Visual Disturbances: 0-None Headache: 2-Mild CIWA-Ar Total Score: 16 Admission ROS BHS - HPI Chief Complaint: alcohol and opiate withdrawal sx Allergies/Adverse Reactions: Allergies Allergy/AdvReac Type Severity Reaction Status Date / Time No Known Allergies Allergy Verified 01/20/18 11:47 History of Present Illness: 67 years old male with long history of alcohol and opiate and nicotine dependence has hypertension and depression is admitted to detox longest sobriety 3-4 years groups and meetings and self help support Exam Limitations: No Limitations - Ebola screening Have you traveled outside of the country in the last 21 days: No (N) Have you had contact with anyone from an Ebola affected area: No Have you been sick,other than usual withdrawal symptoms: No Do you have a fever: No - Review of Systems Constitutional: Loss of Appetite, Changes in sleep, Unintentional Wgt. Loss, Unexplained wgt Loss EENT: reports: Blurred Vision (eye glasses) Respiratory: reports: No Symptoms reported Cardiac: reports: No Symptoms Reported GI: reports: Nausea, Poor Appetite, Poor Fluid Intake, Abdominal cramping : reports: No Symptoms Reported Musculoskeletal: reports: Back Pain, Joint Pain, Muscle Pain, Neck Pain Integumentary: reports: No Symptoms Reported Neuro: reports: Tremors Endocrine: reports: No Symptoms Reported Hematology: reports: No Symptoms Reported Psychiatric: reports: Judgement Intact, Orientated x3, Anxious, Depressed Other Systems: Reviewed and Negative Patient History - Patient Medical History Hx Anemia: No Hx Asthma: No Hx Chronic Obstructive Pulmonary Disease (COPD): No Hx Cancer: No Hx Cardiac Disorders: No Hx Congestive Heart Failure: No Hx Hypertension: Yes Hx Hypercholesterolemia: No Hx Pacemaker: No HX Cerebrovascular Accident: No Hx Seizures: No Hx Dementia: No Hx Diabetes: No Hx Gastrointestinal Disorders: No Hx Liver Disease: Yes (hep c ) Hx Genitourinary Disorders: No Hx Sexually Transmitted Disorders: No Hx Renal Disease (ESRD): No Hx Thyroid Disease: No Hx Human Immunodeficiency Virus (HIV): No Hx Hepatitis C: Yes (TREATED, cleared virus) Hx Depression: Yes Hx Suicide Attempt: No Hx Bipolar Disorder: No Hx Schizophrenia: No - Patient Surgical History Past Surgical History: No Hx Neurologic Surgery: No Hx Cataract Extraction: No Hx Cardiac Surgery: No Hx Lung Surgery: No Hx Breast Surgery: No Hx Breast Biopsy: No Hx Abdominal Surgery: No Hx Appendectomy: No Hx Cholecystectomy: No Hx Genitourinary Surgery: No Hx Orthopedic Surgery: No - PPD History Previous Implant?: Yes Documented Results: Negative w/proof Implanted On Prior R Admission?: Yes Date: 11/21/17 Results: 0 mm PPD to be Administered?: No - Smoking Cessation Smoking history: Current every day smoker Have you smoked in the past 12 months: Yes Aproximately how many cigarettes per day: 10 Cigars Per Day: 0 Hx Chewing Tobacco Use: No Initiated information on smoking cessation: Yes 'Breaking Loose' booklet given: 01/20/18 - Substance & Tx. History Hx Alcohol Use: Yes Hx Substance Use: Yes Substance Use Type: Alcohol, Opiates Hx Substance Use Treatment: Yes (11/2017 [facility] - Substances Abused Heroin Route: Inhalation Frequency: Daily Amount used: 7-10 bags Age of first use: 19 Date of Last Use: 01/20/18 Alcohol-vodka Route: Oral Frequency: Daily Amount used: 3 pts. Age of first use: 65 Date of Last Use: 01/19/18 Family Disease History - Family Disease History Family Disease History: Other: Father (NO CONTACT), Mother (htn ) Admission Physical Exam BHS - Vital Signs Vital Signs: Vital Signs - 24 hr 01/20/18 11:24 Temperature 97 F L Pulse Rate 69 Respiratory 20 Rate Blood Pressure 162/92 - Physical General Appearance: Yes: Appropriately Dressed, Mild Distress, Thin, Tremorous, Irritable, Sweating, Anxious HEENTM: Yes: Hearing grossly Normal, Normocephalic, Normal Voice, Other (eye glassess at home) Respiratory: Yes: Chest Non-Tender, No Respiratory Distress, No Accessory Muscle Use, Hyperresonant, Inspiration Neck: Yes: Supple, Trachea in good position Breast: Yes: Breasts Symetrical, No Discharge Cardiology: Yes: Regular Rhythm, Regular Rate, S1, S2 Abdominal: Yes: Non Tender, Flat, Increased Bowel Sounds Genitourinary: Yes: Within Normal Limits Back: Yes: Normal Inspection Musculoskeletal: Yes: full range of Motion, Gait Steady, Back pain, Muscle Pain Extremities: Yes: Normal Inspection, Normal Range of Motion, Non-Tender, Tremors 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: Yes: Fully Oriented, Alert, Motor Strength 5/5, Normal Response, Depressed Affect Integumentary: Yes: Warm Lymphatic: Yes: Within Normal Limits - Diagnostic (1) Nicotine dependence Current Visit: Yes Status: Acute Qualifiers: Nicotine product type: cigarettes Substance use status: in withdrawal Qualified Code(s): F17.213 - Nicotine dependence, cigarettes, with withdrawal (2) Weight loss Current Visit: Yes Status: Acute (3) Alcohol dependence with uncomplicated withdrawal Current Visit: Yes Status: Acute (4) Hepatitis C Current Visit: Yes Status: Resolved Qualifiers: Viral hepatitis chronicity: chronic Hepatic coma status: without hepatic coma Qualified Code(s): B18.2 - Chronic viral hepatitis C (5) Hypertension Current Visit: Yes Status: Chronic Qualifiers: Hypertension type: essential hypertension Qualified Code(s): I10 - Essential (primary) hypertension (6) Opioid dependence with withdrawal Current Visit: Yes Status: Acute Cleared for Admission [facility] - Detox or Rehab [facility] Level of Care: Medically Managed Detox Regimen/Protocol: Librium [facility] Breath Alcohol Content Breath Alcohol Content: 0 Urine Drug Screen - Results Drug Screen Negative: No Urine Drug Screen Results: OPI-Opiates, MET-Methamphetamine, BZO-Benzodiazepines
[2018-01-20] MEDS ORDERED: chlordiazePOXIDE HCL 25 MG CAPSULE PO PRN (12:30)
[2018-01-20] MEDS ORDERED: MAGNESIUM CITRATE 300 ML BOTTLE PO PRN (12:30)
[2018-01-20] MEDS ORDERED: LOPERAMIDE HCL 2 MG CAPSULE PO PRN (12:30)
[2018-01-20] MEDS ORDERED: MAG HYDROX/AL HYDROX/SIMETH 30 ML UNIT-DOSE CUP PO PRN (12:30)
[2018-01-20] MEDS ORDERED: MENTHOL/PHENOL 1 EACH UD MM PRN (12:30)
[2018-01-20] MEDS ORDERED: NICOTINE POLACRILEX 2 MG GUM BUC PRN (12:30)
[2018-01-20] MEDS ORDERED: guaiFENesin/D-METHORPHAN HB 10 ML UNIT-DOSE CUPS PO PRN (12:30)
[2018-01-20] MEDS ORDERED: MAGNESIUM HYDROX 2400MG/30ML ORAL SUSPENSION 30 ML CUP PO PRN (12:30)
[2018-01-20] MEDS ORDERED: ACETAMINOPHEN 325 MG TABLET (FP) PO PRN (12:30)
[2018-01-20] MEDS ORDERED: P-EPHED 60MG/TRIPROLIDI 2.5MG TABLET PO PRN (12:30)
[2018-01-20] MEDS: ENALAPRIL MALEATE 10 MG TABLET (FP) PO SCH (14:06)
[2018-01-20] MEDS: ASPIRIN 81 MG CHEWABLE TABLETS PO SCH (14:06)
[2018-01-20] MEDS: HYDROCHLOROTHIAZIDE 25 MG TABLET (FP) PO SCH (14:06)
[2018-01-20] MEDS: NICOTINE 14 MG/24 HOURS TOPICAL PATCH TD SCH (14:07)
[2018-01-20] MEDS ORDERED: METHADONE HCL 10 MG TABLET (FOR DETOX USE ONLY) PO ONE ×2 (14:35→23:00)
--- NOTE | 2018-01-20 16:59 | CONSULT ---
[facility] Psychiatric Consult - Data Date of interview: 01/20/18 Admission source: [facility] Identifying data: This is one of several admissions to [facility] for this 67 y/ o AA male seeking detox treatment on for heroin and alcohol dependence.Patient is ,a father of three,domiciled,unemployed and supported on Public Assistance. Substance Abuse History: Confirmed by patient in this session.Details in current [facility] report as follows : Smoking history: Current every day smoker. Have you smoked in the past 12 months: Yes. Aproximately how many cigarettes per day: 10. Cigars Per Day: 0. Hx Chewing Tobacco Use: No. Initiated information on smoking cessation: Yes. 'Breaking Loose' booklet given: . - Substance & Tx. History. Hx Alcohol Use: Yes. Hx Substance Use: Yes. Substance Use Type: Alcohol, Opiates. Hx Substance Use Treatment: Yes (11/2017 [facility]). - Substances Abused. Heroin. Route: Inhalation. Frequency: Daily. Amount used: 7-10 bags. Age of first use: 19. Date of Last Use: . Alcohol-vodka. Route: Oral. Frequency: Daily. Amount used: 3 pts. Age of first use: 65. Date of Last Use: 01/19/18 Medical History: Consistent with a history of hypertension,hepatitis C (treated) . Psychiatric History: No reported history of psychiatric hospitalizations.Patient denies having any contact with Psychiatric [employer] care providers.Not on psychotropi medications.Mr Oconnell denies history of suicide attempts. Physical/Sexual Abuse/Trauma History: Stressor : of . Additional Comment: Urine Drug Screen Results: OPI-Opiates, MET-Methamphetamine , BZO-Benzodiazepines.Noted. Mental Status Exam - Mental Status Exam Alert and Oriented to: Time, Place, Person Cognitive Function: Good Patient Appearance: Well Groomed Mood: Nervous, Withdrawn, Hopeful Affect: Mood Congruent, Constricted Patient Behavior: Fatigued, Appropriate, Cooperative Speech Pattern: Clear Voice Loudness: Normal Thought Process: Intact, Goal Oriented Thought Disorder: Not Present Hallucinations: Denies Suicidal Ideation: Denies Homicidal Ideation: Denies Insight/Judgement: Poor Sleep: Poorly, Difficulty falling asleep (requested benadryl ) Appetite: Good Muscle strength/Tone: Normal Gait/Station: Normal Psychiatric Findings - Problem List ([place] 1, 2,3) (1) Opioid dependence with withdrawal Current Visit: Yes Status: Acute (2) Alcohol dependence with uncomplicated withdrawal Current Visit: Yes Status: Acute (3) Nicotine dependence Current Visit: Yes Status: Acute Qualifiers: Nicotine product type: cigarettes Substance use status: in withdrawal Qualified Code(s): F17.213 - Nicotine dependence, cigarettes, with withdrawal (4) Substance induced mood disorder Current Visit: Yes Status: Acute (5) Insomnia Current Visit: Yes Status: Acute Qualifiers: Insomnia type: unspecified Qualified Code(s): G47.00 - Insomnia, unspecified - Initial Treatment Plan Initial Treatment Plan: Psychoeducation.Sleep hygiene.Detoxification.Benadryl 50 mg po hs prn to address insomnia (patient's specific request).Side effects/ benefits discussed with the patient.Mr Oconnell is in agreement with this careplan.Observation.
[2018-01-20] MEDS: chlordiazePOXIDE HCL 25 MG CAPSULE PO SCH ×2 (17:33→22:12)
[2018-01-20] MEDS ORDERED: diphenhydrAMINE HCL 25 MG CAPSULE (FP) PO ONE (21:32)
[2018-01-20] MEDS ORDERED: MELATONIN 5 MG TABLETS PO PRN (22:00)
[2018-01-20] MEDS: diphenhydrAMINE HCL 50 MG CAPSULE PO PRN (22:12)
[2018-01-20] MEDS: THIAMINE HCL 100 MG TABLET (FP) PO SCH (22:12)
[2018-01-21 00:16] LABS: URINE APPEARANCE CLEAR; URINE BILIRUBIN NEGATIVE (<2.0 mg/dL); URINE COLOR AMBER; URINE GLUCOSE (UA) NEGATIVE (NEGATIVE); URINE KETONE NEGATIVE (NEGATIVE); URINE LEUK ESTERASE NEGATIVE (NEGATIVE); URINE NITRITE NEGATIVE (NEGATIVE); URINE PROTEIN 2+ (NEGATIVE)
[2018-01-21 00:20] LABS: EPI CELLS RARE /HPF (FEW); URINE MUCUS FEW
[2018-01-21] MEDS: chlordiazePOXIDE HCL 25 MG CAPSULE PO SCH ×4 (09:55→22:07)
[2018-01-21] MEDS ORDERED: METHADONE HCL 10 MG TABLET (FOR DETOX USE ONLY) PO ONE (10:00)
[2018-01-21 10:19] LABS: HEMATOCRIT 42.1 % (35.4-49); MCHC 33.1 g/dl (32.0-35.9); MEAN CELL VOLUME 93.5 fl (80-96); MEAN PLT VOLUME 10.4 fl (7.5-11.1); PLATELET COUNT 104 K/MM3 (134-434); RDW 15.7 % (11.9-15.9); WHITE BLOOD COUNT 4.5 K/mm3 (4.0-10.0)
[2018-01-21] MEDS: HYDROCHLOROTHIAZIDE 25 MG TABLET (FP) PO SCH (10:24)
[2018-01-21] MEDS: ENALAPRIL MALEATE 10 MG TABLET (FP) PO SCH (10:25)
[2018-01-21] MEDS: ASPIRIN 81 MG CHEWABLE TABLETS PO SCH (10:25)
[2018-01-21] MEDS: NICOTINE 14 MG/24 HOURS TOPICAL PATCH TD SCH (10:25)
[2018-01-21] MEDS: PRENATAL VITAMINS W/ FOLIC ACID TABLET (FP) PO SCH (10:25)
[2018-01-21 10:45] LABS: CHLORIDE 95 mmol/L (98-107); POTASSIUM 3.9 mmol/L (3.5-5.1); SODIUM 138 mmol/L (136-145)
[2018-01-21 10:51] LABS: ALBUMIN 3.9 g/dl (3.4-5.0); ALK PHOS 34 U/L (45-117); ANION GAP 8 (8-16); BILIRUBIN,TOTAL 0.8 mg/dL (0.2-1.0); BLOOD UREA NITROGEN 9 mg/dL (7-18); CALCIUM 9.4 mg/dL (8.5-10.1); CO2 35 mmol/L (21-32); CREATININE 0.8 mg/dL (0.7-1.3); GLUCOSE,RANDOM 119 mg/dL (74-106); SGOT/AST 67 U/L (15-37); SGPT/ALT 64 U/L (12-78); TOT PROT 7.6 g/dl (6.4-8.2)
--- NOTE | 2018-01-21 11:17 | EKG ---
Test Reason : Blood Pressure : / mmHG Vent. Rate : 079 BPM Atrial Rate : 079 BPM P-R Int : 170 ms QRS Dur : 086 ms QT Int : 326 ms P-R-T Axes : 082 068 013 degrees QTc Int : 373 ms NORMAL SINUS RHYTHM POSSIBLE LEFT ATRIAL ENLARGEMENT NONSPECIFIC T WAVE ABNORMALITY ABNORMAL ECG WHEN COMPARED WITH ECG OF 19-NOV-2017 23:21, NONSPECIFIC T WAVE ABNORMALITY NOW EVIDENT IN INFERIOR LEADS NONSPECIFIC T WAVE ABNORMALITY NOW EVIDENT IN ANTEROLATERAL LEADS QT HAS SHORTENED Confirmed by MARISELA HERNANDEZ MD ([id number]) on 01/21/2018 11:17:32 AM Referred By: Confirmed By:MARISELA HERNANDEZ MD
--- NOTE | 2018-01-21 12:33 | PN ---
[facility] CIWA - CIWA Score Nausea/Vomitin-No Nausea/No Vomiting Muscle Tremors: None Anxiety: 2 Agitation: 3 Paroxysmal Sweats: 3 Orientation: 0-Oriented Tacttile Disturbances: 2-Mild Itch/Numbness/Burn Auditory Disturbances: 0-None Visual Disturbances: 2-Mild Sensitivity Headache: 4-Moderately Severe CIWA-Ar Total Score: 16 BHS COWS - Scale Resting Pulse: 0= [place] 80 or Below Sweatin=Flushed/Facial Moisture Restless Observation: 1= Difficult to Sit Still Pupil Size: 0= Normal to Room Light Bone or Joint Aches: 0= None Runny Nose/ Eye Tearin= Runny Nose/Eyes GI Upset > 30mins: 0= None Tremor Observation of Outstretched Hands: 0= None Yawning Observation: 2= >3x During Session Anxiety or Irritability: 2=Irritable/Anxious Goose Flesh Skin: 3=Piloerection COWS Score: 12 S Progress Note (SOAP) Subjective: Fatigue, H/A, Sweating, Hot/Cold Sensations. Objective: PATIENT A & O X 3. NO ACUTE DISTRESS. 01/21/18 12:32 Vital Signs Temperature 97.7 F 01/21/18 09:23 Pulse Rate 68 01/21/18 09:23 Respiratory Rate 18 01/21/18 09:23 Blood Pressure 111/69 01/21/18 09:23 O2 Sat by Pulse Oximetry (%) Laboratory Tests 01/20/18 01/21/18 01/21/18 23:50 08:50 08:50 WBC 4.5 RBC 4.50 Hgb 14.0 Hct 42.1 MCV 93.5 MCH 31.0 MCHC 33.1 RDW 15.7 D Plt Count 104 L MPV 10.4 Sodium 138 Potassium 3.9 Chloride 95 L Carbon Dioxide 35 H Anion Gap 8 BUN 9 Creatinine 0.8 Creat Clearance w eGFR > 60 Random Glucose 119 H Calcium 9.4 Total Bilirubin 0.8 AST 67 H D ALT 64 D Alkaline Phosphatase 34 L Total Protein 7.6 Albumin 3.9 Urine Color Janeth Urine Appearance Clear Urine pH 6.0 Ur Specific [place] 1.027 Urine Protein 2+ H Urine Glucose (UA) Negative Urine Ketones Negative Urine Blood Negative Urine Nitrite Negative Urine Bilirubin Negative Urine Urobilinogen 2.0 Ur Leukocyte Esterase Negative Urine WBC (Auto) 2 Urine RBC (Auto) 1 Ur Epithelial Cells Rare Urine Mucus Few LABS NOTED. RPR RESULT PENDING. 01/21/18 12:33 Assessment: 01/21/18 12:32 WITHDRAWAL SYMPTOMS. Plan: CONTINUE DETOX. INCREASE DAILY PO FLUID INTAKE.
[2018-01-21] MEDS ORDERED: diphenhydrAMINE HCL 25 MG CAPSULE (FP) PO ONE (22:06)
[2018-01-21] MEDS: diphenhydrAMINE HCL 50 MG CAPSULE PO PRN (22:07)
[2018-01-21] MEDS: THIAMINE HCL 100 MG TABLET (FP) PO SCH (22:07)
[2018-01-22] MEDS: chlordiazePOXIDE HCL 25 MG CAPSULE PO SCH ×2 (05:41→10:22)
[2018-01-22] MEDS ORDERED: METHADONE HCL 5 MG TABLET (FOR DETOX USE ONLY) PO ONE (10:00)
[2018-01-22] MEDS: PRENATAL VITAMINS W/ FOLIC ACID TABLET (FP) PO SCH (10:21)
[2018-01-22] MEDS: ASPIRIN 81 MG CHEWABLE TABLETS PO SCH (10:21)
[2018-01-22] MEDS: ENALAPRIL MALEATE 10 MG TABLET (FP) PO SCH (10:21)
[2018-01-22] MEDS: HYDROCHLOROTHIAZIDE 25 MG TABLET (FP) PO SCH (10:21)
[2018-01-22] MEDS: NICOTINE 14 MG/24 HOURS TOPICAL PATCH TD SCH (10:22)
--- NOTE | 2018-01-22 16:00 | PN ---
[facility] CIWA - CIWA Score Nausea/Vomitin-No Nausea/No Vomiting Muscle Tremors: 2 Anxiety: 4-Mod. Anxious/Guarded Agitation: 4-Moderately Restless Paroxysmal Sweats: 3 Orientation: 0-Oriented Tacttile Disturbances: 2-Mild Itch/Numbness/Burn Auditory Disturbances: 0-None Visual Disturbances: 0-None Headache: 0-None Present CIWA-Ar Total Score: 15 S COWS - Scale Resting Pulse: 0= [place] 80 or Below Sweatin= Chills/Flushing Restless Observation: 1= Difficult to Sit Still Pupil Size: 0= Normal to Room Light Bone or Joint Aches: 1= Mild Discomfort Runny Nose/ Eye Tearin= Nasal Congestion GI Upset > 30mins: 0= None Tremor Observation of Outstretched Hands: 2= Slight Tremor Visible Yawning Observation: 0= None Anxiety or Irritability: 2=Irritable/Anxious Goose Flesh Skin: 3=Piloerection COWS Score: 11 S Progress Note (SOAP) Subjective: Tremors, Anxious, Sweating, Hot/Cold Sensations. Objective: PATIENT A & O X 3, OBSERVED AMBULATING ON UNIT. NO ACUTE DISTRESS. 01/22/18 15:58 Vital Signs Temperature 97.7 F 01/22/18 13:53 Pulse Rate 70 01/22/18 13:53 Respiratory Rate 18 01/22/18 13:53 Blood Pressure 131/79 01/22/18 13:53 O2 Sat by Pulse Oximetry (%) Laboratory Tests 01/20/18 01/21/18 01/21/18 23:50 08:50 08:50 WBC 4.5 RBC 4.50 Hgb 14.0 Hct 42.1 MCV 93.5 MCH 31.0 MCHC 33.1 RDW 15.7 D Plt Count 104 L MPV 10.4 Sodium 138 Potassium 3.9 Chloride 95 L Carbon Dioxide 35 H Anion Gap 8 BUN 9 Creatinine 0.8 Creat Clearance w eGFR > 60 Random Glucose 119 H Calcium 9.4 Total Bilirubin 0.8 AST 67 H D ALT 64 D Alkaline Phosphatase 34 L Total Protein 7.6 Albumin 3.9 Urine Color Janeth Urine Appearance Clear Urine pH 6.0 Ur Specific [place] 1.027 Urine Protein 2+ H Urine Glucose (UA) Negative Urine Ketones Negative Urine Blood Negative Urine Nitrite Negative Urine Bilirubin Negative Urine Urobilinogen 2.0 Ur Leukocyte Esterase Negative Urine WBC (Auto) 2 Urine RBC (Auto) 1 Ur Epithelial Cells Rare Urine Mucus Few RPR Titer 01/21/18 08:50 WBC RBC Hgb Hct MCV MCH MCHC RDW Plt Count MPV Sodium Potassium Chloride Carbon Dioxide Anion Gap BUN Creatinine Creat Clearance w eGFR Random Glucose Calcium Total Bilirubin AST ALT Alkaline Phosphatase Total Protein Albumin Urine Color Urine Appearance Urine pH Ur Specific [place] Urine Protein Urine Glucose (UA) Urine Ketones Urine Blood Urine Nitrite Urine Bilirubin Urine Urobilinogen Ur Leukocyte Esterase Urine WBC (Auto) Urine RBC (Auto) Ur Epithelial Cells Urine Mucus RPR Titer Nonreactive LABS NOTED. Assessment: 01/22/18 15:59 WITHDRAWAL SYMPTOMS. Plan: CONTINUE DETOX. INCREASE DAILY PO FLUID INTAKE.
[2018-01-22] MEDS: chlordiazePOXIDE 5 MG CAPSULE PO SCH ×2 (17:36→22:11)
[2018-01-22] MEDS: THIAMINE HCL 100 MG TABLET (FP) PO SCH (22:11)
[2018-01-22] MEDS ORDERED: diphenhydrAMINE HCL 25 MG CAPSULE (FP) PO ONE (22:12)
[2018-01-22] MEDS: diphenhydrAMINE HCL 50 MG CAPSULE PO PRN (22:12)
[2018-01-23] MEDS ORDERED: diphenhydrAMINE HCL 25 MG CAPSULE (FP) PO ONE ×2 (00:56→22:18)
[2018-01-23] MEDS: chlordiazePOXIDE 5 MG CAPSULE PO SCH ×2 (05:18→10:22)
[2018-01-23] MEDS ORDERED: METHADONE HCL 5 MG TABLET (FOR DETOX USE ONLY) PO ONE (10:00)
[2018-01-23] MEDS: ASPIRIN 81 MG CHEWABLE TABLETS PO SCH (10:22)
[2018-01-23] MEDS: PRENATAL VITAMINS W/ FOLIC ACID TABLET (FP) PO SCH (10:22)
[2018-01-23] MEDS: HYDROCHLOROTHIAZIDE 25 MG TABLET (FP) PO SCH (10:22)
[2018-01-23] MEDS: ENALAPRIL MALEATE 10 MG TABLET (FP) PO SCH (10:22)
[2018-01-23] MEDS: NICOTINE 14 MG/24 HOURS TOPICAL PATCH TD SCH (10:22)
--- NOTE | 2018-01-23 14:54 | PN ---
BHS Progress Note (SOAP) Subjective: Anxious, Sweating, Fatigue. Objective: PATIENT A & O X 3, OBSERVED AMBULATING ON UNIT. NO ACUTE DISTRESS. 01/23/18 14:53 Vital Signs Temperature 97.2 F L 01/23/18 14:05 Pulse Rate 87 01/23/18 14:05 Respiratory Rate 18 01/23/18 14:05 Blood Pressure 131/85 01/23/18 14:05 O2 Sat by Pulse Oximetry (%) Laboratory Tests 01/20/18 01/21/18 01/21/18 23:50 08:50 08:50 WBC 4.5 RBC 4.50 Hgb 14.0 Hct 42.1 MCV 93.5 MCH 31.0 MCHC 33.1 RDW 15.7 D Plt Count 104 L MPV 10.4 Sodium 138 Potassium 3.9 Chloride 95 L Carbon Dioxide 35 H Anion Gap 8 BUN 9 Creatinine 0.8 Creat Clearance w eGFR > 60 Random Glucose 119 H Calcium 9.4 Total Bilirubin 0.8 AST 67 H D ALT 64 D Alkaline Phosphatase 34 L Total Protein 7.6 Albumin 3.9 Urine Color Janeth Urine Appearance Clear Urine pH 6.0 Ur Specific [place] 1.027 Urine Protein 2+ H Urine Glucose (UA) Negative Urine Ketones Negative Urine Blood Negative Urine Nitrite Negative Urine Bilirubin Negative Urine Urobilinogen 2.0 Ur Leukocyte Esterase Negative Urine WBC (Auto) 2 Urine RBC (Auto) 1 Ur Epithelial Cells Rare Urine Mucus Few RPR Titer 01/21/18 08:50 WBC RBC Hgb Hct MCV MCH MCHC RDW Plt Count MPV Sodium Potassium Chloride Carbon Dioxide Anion Gap BUN Creatinine Creat Clearance w eGFR Random Glucose Calcium Total Bilirubin AST ALT Alkaline Phosphatase Total Protein Albumin Urine Color Urine Appearance Urine pH Ur Specific [place] Urine Protein Urine Glucose (UA) Urine Ketones Urine Blood Urine Nitrite Urine Bilirubin Urine Urobilinogen Ur Leukocyte Esterase Urine WBC (Auto) Urine RBC (Auto) Ur Epithelial Cells Urine Mucus RPR Titer Nonreactive LABS NOTED. Assessment: 01/23/18 14:54 WITHDRAWAL SYMPTOMS. Plan: CONTINUE DETOX. INCREASE DAILY PO FLUID INTAKE.
[2018-01-23] MEDS: chlordiazePOXIDE HCL 10 MG CAPSULE PO SCH ×2 (18:55→22:17)
[2018-01-23] MEDS: THIAMINE HCL 100 MG TABLET (FP) PO SCH (22:17)
[2018-01-23] MEDS: diphenhydrAMINE HCL 50 MG CAPSULE PO PRN (22:18)
[2018-01-24] MEDS: chlordiazePOXIDE HCL 10 MG CAPSULE PO SCH ×2 (06:06→10:26)
[2018-01-24] MEDS ORDERED: METHADONE HCL 10 MG TABLET (FOR DETOX USE ONLY) PO ONE (10:00)
[2018-01-24] MEDS: ASPIRIN 81 MG CHEWABLE TABLETS PO SCH (10:25)
[2018-01-24] MEDS: PRENATAL VITAMINS W/ FOLIC ACID TABLET (FP) PO SCH (10:26)
[2018-01-24] MEDS: HYDROCHLOROTHIAZIDE 25 MG TABLET (FP) PO SCH (10:26)
[2018-01-24] MEDS: ENALAPRIL MALEATE 10 MG TABLET (FP) PO SCH (10:26)
[2018-01-24] MEDS: NICOTINE 14 MG/24 HOURS TOPICAL PATCH TD SCH (10:28)
--- NOTE | 2018-01-24 12:38 | DS ---
[facility] Detox Discharge Summary Admission Date: 01/20/18 Discharge Date: 01/24/18 - History Present History: Alcohol Dependence, Opioid Dependence Additional Comments: Patient to follow up with PMD upon discharge. - Physical Exam Results Vital Signs: Vital Signs Temperature 97.3 F L 01/24/18 09:06 Pulse Rate 57 L 01/24/18 09:06 Respiratory Rate 18 01/24/18 09:06 Blood Pressure 112/72 01/24/18 09:06 O2 Sat by Pulse Oximetry (%) Pertinent Admission Physical Exam Findings: Vital Signs Temperature 97.3 F L 01/24/18 09:06 Pulse Rate 57 L 01/24/18 09:06 Respiratory Rate 18 01/24/18 09:06 Blood Pressure 112/72 01/24/18 09:06 O2 Sat by Pulse Oximetry (%) Laboratory Last Values WBC 4.5 K/mm3 (4.0-10.0) 01/21/18 08:50 RBC 4.50 M/mm3 (4.00-5.60) 01/21/18 08:50 Hgb 14.0 GM/dL (11.7-16.9) 01/21/18 08:50 Hct 42.1 % (35.4-49) 01/21/18 08:50 MCV 93.5 fl (80-96) 01/21/18 08:50 MCH 31.0 pg (25.7-33.7) 01/21/18 08:50 MCHC 33.1 g/dl (32.0-35.9) 01/21/18 08:50 RDW 15.7 % (11.9-15.9) D 01/21/18 08:50 Plt Count 104 K/MM3 (134-434) L 01/21/18 08:50 MPV 10.4 fl (7.5-11.1) 01/21/18 08:50 Sodium 138 mmol/L (136-145) 01/21/18 08:50 Potassium 3.9 mmol/L (3.5-5.1) 01/21/18 08:50 Chloride 95 mmol/L (98-107) L 01/21/18 08:50 Carbon Dioxide 35 mmol/L (21-32) H 01/21/18 08:50 Anion Gap 8 (8-16) 01/21/18 08:50 BUN 9 mg/dL (7-18) 01/21/18 08:50 Creatinine 0.8 mg/dL (0.7-1.3) 01/21/18 08:50 Creat Clearance w eGFR > 60 (>60) 01/21/18 08:50 Random Glucose 119 mg/dL (74-106) H 01/21/18 08:50 Calcium 9.4 mg/dL (8.5-10.1) 01/21/18 08:50 Total Bilirubin 0.8 mg/dL (0.2-1.0) 01/21/18 08:50 AST 67 U/L (15-37) H D 01/21/18 08:50 ALT 64 U/L (12-78) D 01/21/18 08:50 Alkaline Phosphatase 34 U/L (45-117) L 01/21/18 08:50 Total Protein 7.6 g/dl (6.4-8.2) 01/21/18 08:50 Albumin 3.9 g/dl (3.4-5.0) 01/21/18 08:50 Urine Color Janeth 01/20/18 23:50 Urine Appearance Clear 01/20/18 23:50 Urine pH 6.0 (5.0-8.0) 01/20/18 23:50 Ur Specific [place] 1.027 (1.001-1.035) 01/20/18 23:50 Urine Protein 2+ (NEGATIVE) H 01/20/18 23:50 Urine Glucose (UA) Negative (NEGATIVE) 01/20/18 23:50 Urine Ketones Negative (NEGATIVE) 01/20/18 23:50 Urine Blood Negative (NEGATIVE) 01/20/18 23:50 Urine Nitrite Negative (NEGATIVE) 01/20/18 23:50 Urine Bilirubin Negative (<2.0 mg/dL) 01/20/18 23:50 Urine Urobilinogen 2.0 mg/dL (0.2-1.0) 01/20/18 23:50 Ur Leukocyte Esterase Negative (NEGATIVE) 01/20/18 23:50 Urine WBC (Auto) 2 /hpf (3-5) 01/20/18 23:50 Urine RBC (Auto) 1 /hpf (0-3) 01/20/18 23:50 Ur Epithelial Cells Rare /HPF (FEW) 01/20/18 23:50 Urine Mucus Few 01/20/18 23:50 RPR Titer Nonreactive (NONREACTIVE) 01/21/18 08:50 - Treatment Hospital Course: Detox Protocol Followed, Detoxed Safely, Responded well, Discharged Condition Good Patient has Accepted a Rehab Referral to: [facility] Suboxone therapy - Medication Discharge Medications: Ambulatory Orders Aspirin [ASA -] 81 mg PO DAILY #30 tab.chew 01/23/18 Enalapril Maleate [Vasotec -] 10 mg PO DAILY #30 tablet 01/23/18 Hydrochlorothiazide [Hctz -] 25 mg PO DAILY #30 tablet 01/23/18 - Diagnosis (1) Alcohol dependence with uncomplicated withdrawal Current Visit: Yes Status: Acute (2) Insomnia Current Visit: Yes Status: Acute Qualifiers: Insomnia type: unspecified Qualified Code(s): G47.00 - Insomnia, unspecified (3) Nicotine dependence Current Visit: Yes Status: Acute Qualifiers: Nicotine product type: cigarettes Substance use status: in withdrawal Qualified Code(s): F17.213 - Nicotine dependence, cigarettes, with withdrawal (4) Weight loss Current Visit: Yes Status: Acute (5) Hypertension Current Visit: Yes Status: Chronic Qualifiers: Hypertension type: essential hypertension Qualified Code(s): I10 - Essential (primary) hypertension (6) Hepatitis C Current Visit: Yes Status: Resolved Qualifiers: Viral hepatitis chronicity: chronic Hepatic coma status: without hepatic coma Qualified Code(s): B18.2 - Chronic viral hepatitis C (7) Opioid dependence with withdrawal Current Visit: Yes Status: Acute - AMA Did Patient Leave Against Medical Advice: No
[2018-01-24] MEDS: THIAMINE HCL 100 MG TABLET (FP) PO SCH (22:10)
[2018-01-24] MEDS ORDERED: diphenhydrAMINE HCL 25 MG CAPSULE (FP) PO ONE (22:12)
[2018-01-24] MEDS: diphenhydrAMINE HCL 50 MG CAPSULE PO PRN (22:12)
[2018-01-25] MEDS ORDERED: METHADONE HCL 5 MG TABLET (FOR DETOX USE ONLY) PO ONE (06:00)
[2018-01-25 06:21] VITALS: BP 116/63; PULSE 61; TEMP 97.2
--- NOTE | 2018-01-25 11:17 | PN ---
S Progress Note Note: PT WAS DISCHARGED EARLIER THIS MORNING DURING PREVIOUS SHIFT. RANDAL STATON.
== END 2018-01-25 06:53 | disposition home or self-care (01) | DRG 773 ==
LOC: YASAS 10:53 → Y3N 12:47
PROVIDERS: ADMIT Family Medicine Addiction Medicine; ATTEND Family Medicine Addiction Medicine
PROC: HZ2ZZZZ Detoxification Services for Substance Abuse Treatment (ICD-10-PCS; principal; 2018-01-20)
DX: F11.23 Opioid dependence with withdrawal (principal); F10.230 Alcohol dependence with withdrawal, uncomplicated; F17.213 Nicotine dependence, cigarettes, with withdrawal; F19.24 Other psychoactive substance dependence with psychoactive substance-induced mood disorder; I10 Essential (primary) hypertension; B18.2 Chronic viral hepatitis C; G47.00 Insomnia, unspecified; Z87.898 Personal history of other specified conditions
CPT/HCPCS: 36415; 80053; 81003; 81015; 85027; 86593; 93005; 93010

== ENCOUNTER 2018-05-19 08:26 | Inpatient (IN) | payer OTHER ==
[2018-05-19 11:00] VITALS: BMI 24.3
--- NOTE | 2018-05-19 11:05 | HP ---
COWS - Scale Resting Pulse: 0= [place] 80 or Below Sweatin= Chills/Flushing Restless Observation: 3= Extraneous Movement Pupil Size: 1= Pupils >than Normal Bone or Joint Aches: 2= Severe Diffuse Aches Runny Nose/ Eye Tearin= Runny Nose/Eyes GI Upset > 30mins: 2= Nausea/Diarrhea Tremor Observation: 1= Tremor [place], Not Seen Yawning Observation: 1= 1-2x During Session Anxiety or Irritability: 2=Irritable/Anxious Goose Flesh Skin: 0=Smooth Skin COWS Score: 15 CIWA Score - CIWA Score Nausea/Vomitin Muscle Tremors: 3 Anxiety: 2 Agitation: 2 Paroxysmal Sweats: 1-Minimal Palms Moist Orientation: 0-Oriented Tacttile Disturbances: 1-Very Mild Itch/Numbness Auditory Disturbances: 1-Very Mild Visual Disturbances: 1-Very Mild Sensitivity Headache: 2-Mild CIWA-Ar Total Score: 15 Admission ROS BHS - HPI Chief Complaint: i need help to stop using heroin,alcohol,cocaine Allergies/Adverse Reactions: Allergies Allergy/AdvReac Type Severity Reaction Status Date / Time No Known Allergies Allergy Verified 05/19/18 11:00 History of Present Illness: this 67 years old male with heroin,alcohol,cocaine dependence,seeking detox, withdrawal symptom,last detox [facility] 01/20/18 to 01/25/18 multiple admissions in detox,keep relapsing, history of hypertension, weight loss arthritis hips and knee,low back pain nicotine dependence longest period of sobriety 3 years anxiety,depression,insomnia,no medication Exam Limitations: No Limitations - Ebola screening Have you traveled outside of the country in the last 21 days: No Have you had contact with anyone from an Ebola affected area: No Have you been sick,other than usual withdrawal symptoms: No Do you have a fever: No - Review of Systems Constitutional: Chills, Loss of Appetite, Malaise, Night Sweats, Changes in sleep, Weakness, Unintentional Wgt. Loss EENT: reports: Tearing, Nose Congestion Respiratory: reports: No Symptoms reported Cardiac: reports: No Symptoms Reported GI: reports: Nausea, Vomiting, Abdominal cramping : reports: No Symptoms Reported Musculoskeletal: reports: Back Pain, Joint Pain, Muscle Pain, Neck Pain Integumentary: reports: Dryness Neuro: reports: Headache, Tremors Endocrine: reports: No Symptoms Reported Hematology: reports: No Symptoms Reported Psychiatric: reports: No Sypmtoms Reported, Judgement Intact, Mood/Affect Appropiate, Orientated x3, Anxious, Depressed (insomnia) Patient History - Patient Medical History Hx Anemia: No Hx Asthma: No Hx Chronic Obstructive Pulmonary Disease (COPD): No Hx Cancer: No Hx Cardiac Disorders: No Hx Congestive Heart Failure: No Hx Hypertension: Yes (on med non compliance) Hx Hypercholesterolemia: No Hx Pacemaker: No HX Cerebrovascular Accident: No Hx Seizures: No Hx Dementia: No Hx Diabetes: No Hx Gastrointestinal Disorders: No Hx Liver Disease: Yes (hep c ) Hx Genitourinary Disorders: No Hx Sexually Transmitted Disorders: No Hx Renal Disease (ESRD): No Hx Thyroid Disease: No Hx Human Immunodeficiency Virus (HIV): No Hx Hepatitis C: Yes (TREATED, cleared virus) Hx Depression: Yes Hx Suicide Attempt: No Hx Bipolar Disorder: No Hx Schizophrenia: No Other Medical History: no suicidal,no homicidal - Patient Surgical History Past Surgical History: No Hx Neurologic Surgery: No Hx Cataract Extraction: No Hx Cardiac Surgery: No Hx Lung Surgery: No Hx Breast Surgery: No Hx Breast Biopsy: No Hx Abdominal Surgery: No Hx Appendectomy: No Hx Cholecystectomy: No Hx Genitourinary Surgery: No Hx Section: No Hx Orthopedic Surgery: No Hx Hysterectomy: No Anesthesia Reaction: No - PPD History Previous Implant?: Yes Documented Results: Negative w/proof Date: 11/21/17 Results: 0 mm PPD to be Administered?: No - Smoking Cessation Smoking history: Current every day smoker Have you smoked in the past 12 months: Yes Aproximately how many cigarettes per day: 10 Cigars Per Day: 0 Hx Chewing Tobacco Use: No Initiated information on smoking cessation: Yes 'Breaking Loose' booklet given: 05/19/18 - Substance & Tx. History Hx Alcohol Use: Yes Hx Substance Use: Yes Substance Use Type: Alcohol, Cocaine, Heroin Hx Substance Use Treatment: Yes ([facility] 01/20/18 to 01/25/18 ) - Substances Abused Alcohol Route: Oral Frequency: Daily Amount used: 1 and 1/2 pints of vodka Age of first use: 65 Date of Last Use: 05/19/18 Heroin Route: Inhalation Frequency: Daily Amount used: 7-8 bags Age of first use: 19 Date of Last Use: 05/18/18 Cocaine Route: Inhalation Frequency: 1-3 times last 30 days Amount used: 1 bag Age of first use: 19 Date of Last Use: 05/12/18 Family Disease History - Family Disease History Family Disease History: Other: Father (NO CONTACT), Mother (htn ) Admission Physical Exam [facility] - Vital Signs Vital Signs: Vital Signs - 24 hr 05/19/18 10:46 Temperature 97.1 F L Pulse Rate 73 Respiratory 18 Rate Blood Pressure 135/83 - Physical General Appearance: Yes: Moderate Distress, Tremorous, Irritable, Sweating, Anxious HEENTM: Yes: JACQUIE, Nasal Congestion Respiratory: Yes: Lungs Clear, Normal Breath Sounds, No Respiratory Distress Neck: Yes: Within Normal Limits, Supple, Trachea in good position Breast: Yes: Within Normal Limits Cardiology: Yes: Within Normal Limits, Regular Rhythm, Regular Rate, S1, S2 Abdominal: Yes: Within Normal Limits, Normal Bowel Sounds, Non Tender, Soft Genitourinary: Yes: Within Normal Limits Back: Yes: Muscle Spasm Musculoskeletal: Yes: full range of Motion, Back pain, Muscle Pain Extremities: Yes: Within Normal Limits, Normal Range of Motion, Tremors 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: Yes: 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 NML intact, Fully Oriented, Alert, Motor Strength 5/5 Integumentary: Yes: Dry Lymphatic: Yes: Within Normal Limits - Diagnostic (1) Opioid dependence with withdrawal Current Visit: No Status: Acute (2) Alcohol dependence with uncomplicated withdrawal Current Visit: No Status: Acute (3) Nicotine dependence Current Visit: No Status: Acute Qualifiers: Nicotine product type: cigarettes Substance use status: in withdrawal Qualified Code(s): F17.213 - Nicotine dependence, cigarettes, with withdrawal (4) Weight loss Current Visit: No Status: Acute (5) Hypertension Current Visit: No Status: Chronic Qualifiers: Hypertension type: essential hypertension Qualified Code(s): I10 - Essential (primary) hypertension (6) Hepatitis C Current Visit: No Status: Resolved Qualifiers: Viral hepatitis chronicity: chronic Hepatic coma status: without hepatic coma Qualified Code(s): B18.2 - Chronic viral hepatitis C (7) Insomnia secondary to depression with anxiety Current Visit: Yes Status: Acute Cleared for Admission [facility] - Detox or Rehab [facility] Level of Care: Medically Managed Detox Regimen/Protocol: Methadone/Librium [facility] Breath Alcohol Content Breath Alcohol Content: 0.059 Urine Drug Screen - Results Drug Screen Negative: No Urine Drug Screen Results: TATI-Cocaine, OPI-Opiates, MTD-Methadone, OXY- Oxycodone, FEN-Fentanyl
[2018-05-19] MEDS ORDERED: P-EPHED 60MG/TRIPROLIDI 2.5MG TABLET PO PRN (11:26)
[2018-05-19] MEDS ORDERED: guaiFENesin/D-METHORPHAN HB 10 ML UNIT-DOSE CUPS PO PRN (11:26)
[2018-05-19] MEDS ORDERED: MAGNESIUM HYDROX 2400MG/30ML ORAL SUSPENSION 30 ML CUP PO PRN (11:26)
[2018-05-19] MEDS ORDERED: chlordiazePOXIDE HCL 25 MG CAPSULE PO PRN (11:26)
[2018-05-19] MEDS ORDERED: MAGNESIUM CITRATE 300 ML BOTTLE PO PRN (11:26)
[2018-05-19] MEDS ORDERED: ACETAMINOPHEN 325 MG TABLET (FP) PO PRN (11:26)
[2018-05-19] MEDS ORDERED: IBUPROFEN 400 MG TABLET (FP) PO PRN (11:26)
[2018-05-19] MEDS ORDERED: MENTHOL/PHENOL 1 EACH UD MM PRN (11:26)
[2018-05-19] MEDS ORDERED: MAG HYDROX/AL HYDROX/SIMETH 30 ML UNIT-DOSE CUP PO PRN (11:26)
[2018-05-19] MEDS ORDERED: hydrOXYzine PAMOATE 25 MG CAPSULE (FP) PO PRN (11:26)
[2018-05-19] MEDS ORDERED: LOPERAMIDE HCL 2 MG CAPSULE PO PRN (11:26)
[2018-05-19] MEDS ORDERED: METHADONE HCL 10 MG TABLET (FOR DETOX USE ONLY) PO ONE ×2 (12:00→23:00)
[2018-05-19 14:50] LABS: URINE APPEARANCE SLCLOUDY; URINE BILIRUBIN NEGATIVE (<2.0 mg/dL); URINE COLOR AMBER; URINE GLUCOSE (UA) NEGATIVE (NEGATIVE); URINE KETONE NEGATIVE (NEGATIVE); URINE LEUK ESTERASE NEGATIVE (NEGATIVE); URINE NITRITE NEGATIVE (NEGATIVE); URINE PROTEIN 1+ (NEGATIVE); URINE UROBILINOGEN 4.0 E.U/dl mg/dL (0.2-1.0)
[2018-05-19 17:34] LABS: URINE MUCUS RARE
[2018-05-19 17:38] LABS: EPI CELLS RARE /HPF (FEW)
[2018-05-19] MEDS: chlordiazePOXIDE HCL 25 MG CAPSULE PO SCH ×2 (17:41→22:54)
[2018-05-19] MEDS ORDERED: MELATONIN 5 MG TABLETS PO PRN (22:00)
[2018-05-19] MEDS: THIAMINE HCL 100 MG TABLET (FP) PO SCH (22:54)
[2018-05-20] MEDS: chlordiazePOXIDE HCL 25 MG CAPSULE PO SCH ×4 (05:25→22:33)
[2018-05-20] MEDS ORDERED: METHADONE HCL 10 MG TABLET (FOR DETOX USE ONLY) PO SCH (10:00)
[2018-05-20 10:20] LABS: HEMATOCRIT 42.4 % (35.4-49); HEMOGLOBIN 13.7 GM/dL (11.7-16.9); MCH 29.5 pg (25.7-33.7); MCHC 32.3 g/dl (32.0-35.9); MEAN CELL VOLUME 91.3 fl (80-96); MEAN PLT VOLUME 10.2 fl (7.5-11.1); PLATELET COUNT 111 K/MM3 (134-434); RBC 4.64 M/mm3 (4.00-5.60); RDW 13.5 % (11.9-15.9); WHITE BLOOD COUNT 4.1 K/mm3 (4.0-10.0)
[2018-05-20] MEDS: HYDROCHLOROTHIAZIDE 25 MG TABLET (FP) PO SCH (10:32)
[2018-05-20] MEDS: PRENATAL VITAMINS W/ FOLIC ACID TABLET (FP) PO SCH (10:32)
[2018-05-20] MEDS: ENALAPRIL MALEATE 10 MG TABLET (FP) PO SCH (10:32)
[2018-05-20] MEDS: ASPIRIN 81 MG CHEWABLE TABLETS PO SCH (10:32)
[2018-05-20 10:39] LABS: ALBUMIN 3.8 g/dl (3.4-5.0); ALK PHOS 40 U/L (45-117); ANION GAP 9 MMOL/L (8-16); BILIRUBIN,TOTAL 0.4 mg/dL (0.2-1); BLOOD UREA NITROGEN 6 mg/dL (7-18); CALCIUM 9.3 mg/dL (8.5-10.1); CHLORIDE 98 mmol/L (98-107); CO2 31 mmol/L (21-32); CREATININE 0.5 mg/dL (0.55-1.3); GLUCOSE,RANDOM 97 mg/dL (74-106); POTASSIUM 3.6 mmol/L (3.5-5.1); SGOT/AST 26 U/L (15-37); SGPT/ALT 26 U/L (13-61); SODIUM 138 mmol/L (136-145); TOT PROT 7.4 g/dl (6.4-8.2)
--- NOTE | 2018-05-20 11:10 | PN ---
[facility] CIWA - CIWA Score Nausea/Vomitin-No Nausea/No Vomiting Muscle Tremors: 2 Anxiety: 2 Agitation: 0-Normal Activity Paroxysmal Sweats: 3 Orientation: 0-Oriented Tacttile Disturbances: 0-None Auditory Disturbances: 0-None Visual Disturbances: 0-None Headache: 3-Moderate CIWA-Ar Total Score: 10 BHS COWS - Scale Resting Pulse: 0= [place] 80 or Below Sweatin=Flushed/Facial Moisture Restless Observation: 0= Sits Still Pupil Size: 1= Pupils >than Normal Bone or Joint Aches: 2= Severe Diffuse Aches Runny Nose/ Eye Tearin= None GI Upset > 30mins: 0= None Tremor Observation of Outstretched Hands: 2= Slight Tremor Visible Yawning Observation: 1= 1-2x During Session Anxiety or Irritability: 2=Irritable/Anxious Goose Flesh Skin: 0=Smooth Skin COWS Score: 10 S Progress Note (SOAP) Subjective: PATIENT C/O BODY ACHES, CHILLS, SWEATING, ANXIETY Objective: 05/20/18 11:08 Laboratory Tests 05/19/18 05/20/18 05/20/18 13:00 06:00 06:00 WBC 4.1 RBC 4.64 Hgb 13.7 Hct 42.4 MCV 91.3 MCH 29.5 MCHC 32.3 RDW 13.5 D Plt Count 111 L MPV 10.2 Sodium 138 Potassium 3.6 Chloride 98 Carbon Dioxide 31 Anion Gap 9 BUN 6 L Creatinine 0.5 L Creat Clearance w eGFR > 60 Random Glucose 97 Calcium 9.3 Total Bilirubin 0.4 AST 26 ALT 26 Alkaline Phosphatase 40 L Total Protein 7.4 Albumin 3.8 Urine Color Janeth Urine Appearance Slcloudy Urine pH 5.0 Ur Specific [place] 1.025 Urine Protein 1+ H Urine Glucose (UA) Negative Urine Ketones Negative Urine Blood Negative Urine Nitrite Negative Urine Bilirubin Negative Urine Urobilinogen 4.0 e.u/dl Ur Leukocyte Esterase Negative Urine WBC (Auto) 6 Urine RBC (Auto) 1 Ur Epithelial Cells Rare Urine Mucus Rare Vital Signs Temperature 97.5 F L 05/20/18 10:14 Pulse Rate 72 05/20/18 10:14 Respiratory Rate 16 05/20/18 10:14 Blood Pressure 158/94 05/20/18 10:14 O2 Sat by Pulse Oximetry (%) SKIN WARM AND MOIST ALERT AND ORIENTED X 3 CAR S1S2 RESP CTA BL EXT FULL ROM Assessment: 05/20/18 11:09 WITHDRAWAL SYNDROME Plan: CONTINUE DETOX ORDERED ENCOURAGE ORAL FLUIDS CONTINUE TO MONITOR CLINICALLY
--- NOTE | 2018-05-20 12:14 | EKG ---
Test Reason : Blood Pressure : / mmHG Vent. Rate : 068 BPM Atrial Rate : 068 BPM P-R Int : 186 ms QRS Dur : 088 ms QT Int : 416 ms P-R-T Axes : 070 066 -06 degrees QTc Int : 442 ms NORMAL SINUS RHYTHM ABNORMAL QRS-T ANGLE, CONSIDER PRIMARY T WAVE ABNORMALITY ABNORMAL ECG WHEN COMPARED WITH ECG OF 20-JAN-2018 13:44, QT HAS LENGTHENED Confirmed by DAVID BANERJEE, MARISELA ([id number]) on 05/20/2018 12:13:55 PM Referred By: Confirmed By:MARISELA HERNANDEZ MD
[2018-05-20] MEDS: THIAMINE HCL 100 MG TABLET (FP) PO SCH (22:33)
[2018-05-21] MEDS: chlordiazePOXIDE HCL 25 MG CAPSULE PO SCH ×2 (05:47→10:24)
[2018-05-21] MEDS: METHADONE HCL 5 MG TABLET (FOR DETOX USE ONLY) PO SCH (10:24)
[2018-05-21] MEDS: PRENATAL VITAMINS W/ FOLIC ACID TABLET (FP) PO SCH (10:24)
[2018-05-21] MEDS: HYDROCHLOROTHIAZIDE 25 MG TABLET (FP) PO SCH (10:24)
[2018-05-21] MEDS: ENALAPRIL MALEATE 10 MG TABLET (FP) PO SCH (10:24)
[2018-05-21] MEDS: ASPIRIN 81 MG CHEWABLE TABLETS PO SCH (10:24)
--- NOTE | 2018-05-21 10:38 | PN ---
[facility] CIWA - CIWA Score Nausea/Vomitin-Mild Nausea/No Vomiting Muscle Tremors: 3 Anxiety: 3 Agitation: 3 Paroxysmal Sweats: 3 Orientation: 0-Oriented Tacttile Disturbances: 0-None Auditory Disturbances: 0-None Visual Disturbances: 0-None Headache: 1-Very Mild CIWA-Ar Total Score: 14 BHS COWS - Scale Resting Pulse: 0= [place] 80 or Below Sweatin= Chills/Flushing Restless Observation: 3= Extraneous Movement Pupil Size: 0= Normal to Room Light Bone or Joint Aches: 2= Severe Diffuse Aches Runny Nose/ Eye Tearin= Runny Nose/Eyes GI Upset > 30mins: 2= Nausea/Diarrhea Tremor Observation of Outstretched Hands: 2= Slight Tremor Visible Yawning Observation: 0= None Anxiety or Irritability: 2=Irritable/Anxious Goose Flesh Skin: 0=Smooth Skin COWS Score: 14 S Progress Note (SOAP) Subjective: Tremor, chills, sweating, headache, diarrhea Objective: 05/21/18 10:34 Last Vital Signs Temp Pulse Resp BP Pulse Ox 97.2 F L 67 19 170/95 05/21/18 10:19 05/21/18 10:19 05/21/18 10:19 05/21/18 10:19 Elevated b/p noted (170/95): h/o HTN (on med) Laboratory Tests 05/19/18 05/20/18 05/20/18 13:00 06:00 06:00 WBC 4.1 RBC 4.64 Hgb 13.7 Hct 42.4 MCV 91.3 MCH 29.5 MCHC 32.3 RDW 13.5 D Plt Count 111 L MPV 10.2 Sodium 138 Potassium 3.6 Chloride 98 Carbon Dioxide 31 Anion Gap 9 BUN 6 L Creatinine 0.5 L Creat Clearance w eGFR > 60 Random Glucose 97 Calcium 9.3 Total Bilirubin 0.4 AST 26 ALT 26 Alkaline Phosphatase 40 L Total Protein 7.4 Albumin 3.8 Urine Color Janeth Urine Appearance Slcloudy Urine pH 5.0 Ur Specific [place] 1.025 Urine Protein 1+ H Urine Glucose (UA) Negative Urine Ketones Negative Urine Blood Negative Urine Nitrite Negative Urine Bilirubin Negative Urine Urobilinogen 4.0 e.u/dl Ur Leukocyte Esterase Negative Urine WBC (Auto) 6 Urine RBC (Auto) 1 Ur Epithelial Cells Rare Urine Mucus Rare RPR Titer 05/20/18 06:00 WBC RBC Hgb Hct MCV MCH MCHC RDW Plt Count MPV Sodium Potassium Chloride Carbon Dioxide Anion Gap BUN Creatinine Creat Clearance w eGFR Random Glucose Calcium Total Bilirubin AST ALT Alkaline Phosphatase Total Protein Albumin Urine Color Urine Appearance Urine pH Ur Specific [place] Urine Protein Urine Glucose (UA) Urine Ketones Urine Blood Urine Nitrite Urine Bilirubin Urine Urobilinogen Ur Leukocyte Esterase Urine WBC (Auto) Urine RBC (Auto) Ur Epithelial Cells Urine Mucus RPR Titer Nonreactive Labs reviewed: UA shows 1+ protein Assessment: 05/21/18 10:37 Withdrawal sxs Noted with proteinuria Plan: Continue detox Proteinuria: encouraged PO water intake, repeat UA
[2018-05-21] MEDS: chlordiazePOXIDE 5 MG CAPSULE PO SCH ×2 (17:20→22:41)
[2018-05-21 21:02] LABS: URINE APPEARANCE CLEAR; URINE BILIRUBIN NEGATIVE (<2.0 mg/dL); URINE COLOR YELLOW; URINE GLUCOSE (UA) NEGATIVE (NEGATIVE); URINE KETONE NEGATIVE (NEGATIVE); URINE LEUK ESTERASE NEGATIVE (NEGATIVE); URINE NITRITE NEGATIVE (NEGATIVE); URINE PROTEIN NEGATIVE (NEGATIVE); URINE UROBILINOGEN 4.0 E.U/dl mg/dL (0.2-1.0)
[2018-05-21] MEDS: THIAMINE HCL 100 MG TABLET (FP) PO SCH (22:41)
[2018-05-22] MEDS: chlordiazePOXIDE 5 MG CAPSULE PO SCH ×2 (05:17→10:32)
[2018-05-22] MEDS: PRENATAL VITAMINS W/ FOLIC ACID TABLET (FP) PO SCH (10:32)
[2018-05-22] MEDS: HYDROCHLOROTHIAZIDE 25 MG TABLET (FP) PO SCH (10:32)
[2018-05-22] MEDS: ENALAPRIL MALEATE 10 MG TABLET (FP) PO SCH (10:32)
[2018-05-22] MEDS: METHADONE HCL 5 MG TABLET (FOR DETOX USE ONLY) PO SCH (10:32)
[2018-05-22] MEDS: ASPIRIN 81 MG CHEWABLE TABLETS PO SCH (10:32)
--- NOTE | 2018-05-22 14:27 | PN ---
BHS Progress Note (SOAP) Subjective: alert,irritable,anxious,interrupted sleep,pain in the body Objective: 05/22/18 14:26 Vital Signs Temperature 98.9 F 05/22/18 11:08 Pulse Rate 72 05/22/18 11:08 Respiratory Rate 20 05/22/18 11:08 Blood Pressure 118/70 05/22/18 11:08 O2 Sat by Pulse Oximetry (%) Assessment: 05/22/18 14:27 withdrawal symptom Plan: continue detox
[2018-05-22] MEDS: chlordiazePOXIDE HCL 10 MG CAPSULE PO SCH ×2 (18:16→22:33)
[2018-05-22] MEDS: THIAMINE HCL 100 MG TABLET (FP) PO SCH (22:33)
[2018-05-23] MEDS: chlordiazePOXIDE HCL 10 MG CAPSULE PO SCH ×2 (05:28→10:29)
[2018-05-23] MEDS ORDERED: METHADONE HCL 10 MG TABLET (FOR DETOX USE ONLY) PO SCH (10:00)
[2018-05-23] MEDS: ASPIRIN 81 MG CHEWABLE TABLETS PO SCH (10:27)
[2018-05-23] MEDS: ENALAPRIL MALEATE 10 MG TABLET (FP) PO SCH (10:27)
[2018-05-23] MEDS: PRENATAL VITAMINS W/ FOLIC ACID TABLET (FP) PO SCH (10:28)
[2018-05-23] MEDS: HYDROCHLOROTHIAZIDE 25 MG TABLET (FP) PO SCH (10:28)
--- NOTE | 2018-05-23 14:39 | PN ---
BHS Progress Note (SOAP) Subjective: Chills, sweating, interrupted sleep Objective: 05/23/18 14:38 Last Vital Signs Temp Pulse Resp BP Pulse Ox 96.5 F L 74 16 115/75 05/23/18 14:05 05/23/18 14:05 05/23/18 14:05 05/23/18 14:05 Laboratory Tests 05/19/18 05/20/18 05/20/18 13:00 06:00 06:00 WBC 4.1 RBC 4.64 Hgb 13.7 Hct 42.4 MCV 91.3 MCH 29.5 MCHC 32.3 RDW 13.5 D Plt Count 111 L MPV 10.2 Sodium 138 Potassium 3.6 Chloride 98 Carbon Dioxide 31 Anion Gap 9 BUN 6 L Creatinine 0.5 L Creat Clearance w eGFR > 60 Random Glucose 97 Calcium 9.3 Total Bilirubin 0.4 AST 26 ALT 26 Alkaline Phosphatase 40 L Total Protein 7.4 Albumin 3.8 Urine Color Janeth Urine Appearance Slcloudy Urine pH 5.0 Ur Specific [place] 1.025 Urine Protein 1+ H Urine Glucose (UA) Negative Urine Ketones Negative Urine Blood Negative Urine Nitrite Negative Urine Bilirubin Negative Urine Urobilinogen 4.0 e.u/dl Ur Leukocyte Esterase Negative Urine WBC (Auto) 6 Urine RBC (Auto) 1 Ur Epithelial Cells Rare Urine Mucus Rare RPR Titer 05/20/18 05/21/18 06:00 17:33 WBC RBC Hgb Hct MCV MCH MCHC RDW Plt Count MPV Sodium Potassium Chloride Carbon Dioxide Anion Gap BUN Creatinine Creat Clearance w eGFR Random Glucose Calcium Total Bilirubin AST ALT Alkaline Phosphatase Total Protein Albumin Urine Color Yellow Urine Appearance Clear Urine pH 7.0 D Ur Specific [place] 1.018 Urine Protein Negative Urine Glucose (UA) Negative Urine Ketones Negative Urine Blood Negative Urine Nitrite Negative Urine Bilirubin Negative Urine Urobilinogen 4.0 e.u/dl Ur Leukocyte Esterase Negative Urine WBC (Auto) Urine RBC (Auto) Ur Epithelial Cells Urine Mucus RPR Titer Nonreactive Labs reviewed Assessment: 05/23/18 14:39 Withdrawal sxs Plan: Continue detox
[2018-05-23] MEDS: THIAMINE HCL 100 MG TABLET (FP) PO SCH (22:44)
[2018-05-24] MEDS ORDERED: METHADONE HCL 5 MG TABLET (FOR DETOX USE ONLY) PO SCH (06:00)
--- NOTE | 2018-05-24 09:04 | DS ---
[facility] Detox Discharge Summary Admission Date: 05/19/18 Discharge Date: 05/24/18 - History Present History: Alcohol Dependence, Cannabis Dependence, Opioid Dependence Additional Comments: Patient medically stable. - Physical Exam Results Vital Signs: Vital Signs Temperature 98.2 F 05/24/18 06:04 Pulse Rate 69 05/24/18 06:04 Respiratory Rate 18 05/24/18 06:30 Blood Pressure 124/77 05/24/18 06:04 O2 Sat by Pulse Oximetry (%) Laboratory Last Values WBC 4.1 K/mm3 (4.0-10.0) 05/20/18 06:00 RBC 4.64 M/mm3 (4.00-5.60) 05/20/18 06:00 Hgb 13.7 GM/dL (11.7-16.9) 05/20/18 06:00 Hct 42.4 % (35.4-49) 05/20/18 06:00 MCV 91.3 fl (80-96) 05/20/18 06:00 MCH 29.5 pg (25.7-33.7) 05/20/18 06:00 MCHC 32.3 g/dl (32.0-35.9) 05/20/18 06:00 RDW 13.5 % (11.9-15.9) D 05/20/18 06:00 Plt Count 111 K/MM3 (134-434) L 05/20/18 06:00 MPV 10.2 fl (7.5-11.1) 05/20/18 06:00 Sodium 138 mmol/L (136-145) 05/20/18 06:00 Potassium 3.6 mmol/L (3.5-5.1) 05/20/18 06:00 Chloride 98 mmol/L (98-107) 05/20/18 06:00 Carbon Dioxide 31 mmol/L (21-32) 05/20/18 06:00 Anion Gap 9 MMOL/L (8-16) 05/20/18 06:00 BUN 6 mg/dL (7-18) L 05/20/18 06:00 Creatinine 0.5 mg/dL (0.55-1.3) L 05/20/18 06:00 Creat Clearance w eGFR > 60 (>60) 05/20/18 06:00 Random Glucose 97 mg/dL (74-106) 05/20/18 06:00 Calcium 9.3 mg/dL (8.5-10.1) 05/20/18 06:00 Total Bilirubin 0.4 mg/dL (0.2-1) 05/20/18 06:00 AST 26 U/L (15-37) 05/20/18 06:00 ALT 26 U/L (13-61) 05/20/18 06:00 Alkaline Phosphatase 40 U/L (45-117) L 05/20/18 06:00 Total Protein 7.4 g/dl (6.4-8.2) 05/20/18 06:00 Albumin 3.8 g/dl (3.4-5.0) 05/20/18 06:00 Urine Color Yellow 05/21/18 17:33 Urine Appearance Clear 05/21/18 17:33 Urine pH 7.0 (5.0-8.0) D 05/21/18 17:33 Ur Specific [place] 1.018 (1.010-1.035) 05/21/18 17:33 Urine Protein Negative (NEGATIVE) 05/21/18 17:33 Urine Glucose (UA) Negative (NEGATIVE) 05/21/18 17:33 Urine Ketones Negative (NEGATIVE) 05/21/18 17:33 Urine Blood Negative (NEGATIVE) 05/21/18 17:33 Urine Nitrite Negative (NEGATIVE) 05/21/18 17:33 Urine Bilirubin Negative (<2.0 mg/dL) 05/21/18 17:33 Urine Urobilinogen 4.0 e.u/dl mg/dL (0.2-1.0) 05/21/18 17:33 Ur Leukocyte Esterase Negative (NEGATIVE) 05/21/18 17:33 Urine WBC (Auto) 6 /hpf (3-5) 05/19/18 13:00 Urine RBC (Auto) 1 /hpf (0-3) 05/19/18 13:00 Ur Epithelial Cells Rare /HPF (FEW) 05/19/18 13:00 Urine Mucus Rare 05/19/18 13:00 RPR Titer Nonreactive (NONREACTIVE) 05/20/18 06:00 Pertinent Admission Physical Exam Findings: Patient medically stable. Patient to follow up with primary care provider in a week. Follow up with out patient program referrals. Patient to follow up with Dr. Shen on 06/09/18 at 1:30 PM at [facility] for follow up on suboxone tx. - Treatment Hospital Course: Detox Protocol Followed, Detoxed Safely, Responded well, Discharged Condition Good, Rehab Referral Accepted Patient has Accepted a Rehab Referral to: [facility] - Medication Discharge Medications: Ambulatory Orders Enalapril Maleate [Vasotec -] 10 mg PO DAILY #30 tablet 01/23/18 Hydrochlorothiazide [Hctz -] 25 mg PO DAILY #30 tablet 01/23/18 Aspirin [ASA -] 81 mg PO DAILY #30 tab.chew 05/24/18 Enalapril Maleate [Vasotec -] 10 mg PO DAILY #30 tablet 05/24/18 Hydrochlorothiazide [Hctz -] 25 mg PO DAILY #30 tablet 05/24/18 - Diagnosis (1) Alcohol dependence with uncomplicated withdrawal Status: Acute (2) Opioid dependence with withdrawal Status: Acute (3) Weight loss Status: Acute (4) Cannabis dependence Status: Chronic (5) Cocaine use disorder Status: Chronic (6) Hypertension Status: Chronic Qualifiers: Hypertension type: essential hypertension Qualified Code(s): I10 - Essential (primary) hypertension (7) Nicotine dependence Status: Chronic Qualifiers: Nicotine product type: cigarettes Substance use status: in withdrawal Qualified Code(s): F17.213 - Nicotine dependence, cigarettes, with withdrawal (8) Hepatitis C Status: Resolved Qualifiers: Viral hepatitis chronicity: chronic Hepatic coma status: without hepatic coma Qualified Code(s): B18.2 - Chronic viral hepatitis C - AMA Did Patient Leave Against Medical Advice: No
[2018-05-24 09:18] VITALS: BP 129/86; PULSE 99; TEMP 96.5
== END 2018-05-24 10:00 | disposition home or self-care (01) | DRG 897 ==
LOC: YASAS 08:26 → Y3N 11:35
PROC: HZ2ZZZZ Detoxification Services for Substance Abuse Treatment (ICD-10-PCS; principal; 2018-05-19)
DX: F19.230 Other psychoactive substance dependence with withdrawal, uncomplicated (principal); F11.23 Opioid dependence with withdrawal; F10.230 Alcohol dependence with withdrawal, uncomplicated; F12.20 Cannabis dependence, uncomplicated; F14.90 Cocaine use, unspecified, uncomplicated; F17.213 Nicotine dependence, cigarettes, with withdrawal; F34.1 Dysthymic disorder; F51.05 Insomnia due to other mental disorder; I10 Essential (primary) hypertension; B18.2 Chronic viral hepatitis C; G47.00 Insomnia, unspecified; R80.9 Proteinuria, unspecified; M19.90 Unspecified osteoarthritis, unspecified site; Z91.14 Patient's other noncompliance with medication regimen; Z87.898 Personal history of other specified conditions; Z59.0 Homelessness
CPT/HCPCS: 36415; 80053; 81003; 81015; 85027; 86593; 93005; 93010